=== PATIENT | male | born 1940 | race Caucasian/White ===

== ENCOUNTER → 2017-04-27 | Outpatient (CLI) | payer OTHER | END | disposition home or self-care (01) | LOC: KCIC US 11:58 | DX: I73.9 Peripheral vascular disease, unspecified (principal); I10 Essential (primary) hypertension; E11.51 Type 2 diabetes mellitus with diabetic peripheral angiopathy without gangrene; F17.200 Nicotine dependence, unspecified, uncomplicated | CPT/HCPCS: 93925 ==

== ENCOUNTER 2017-05-15 08:49 | Outpatient (CLI) | payer OTHER ==
[2017-05-19] MEDS: REGADENOSON 0.4 MG/5 ML DISP.SYRIN. IV (09:02)
== END 2017-05-19 | disposition home or self-care (01) ==
LOC: NM 08:49
DX: I25.10 Atherosclerotic heart disease of native coronary artery without angina pectoris (principal); I35.0 Nonrheumatic aortic (valve) stenosis
CPT/HCPCS: 78452; 93017; 93306; 96374; 96375; 96376; A9500; J2785

== ENCOUNTER → 2017-05-15 | Outpatient (CLI) | payer OTHER ==
[~2017-05-15] MED LIST: 0.9 % SODIUM CHLORIDE 10 ML DISP.SYRIN. IV; CONTRAST GIVEN MC; HEPARIN for IV BOLUS 10,000 UNIT/10 ML VIAL.; MIDAZOLAM HCL/PF 2 MG/2 ML VIAL.; NITROGLYCERIN SUBLINGUAL 0.4 MG BOTTLE OF 25. SL; fentaNYL PF VIAL 100 MCG/2 ML VIAL
[2017-05-15 10:10] LABS: HEMOGLOBIN 13.5 g/dL (13.0-17.5); MEAN CORPUSCULAR HEMOGLOBIN 29 pg (25-35); MEAN CORPUSCULAR HGB CONC 33 g/dL (31-37); MEAN CORPUSCULAR VOLUME 89 fL (79-100); PLATELET COUNT 174 x10^3/uL (140-400); RED BLOOD COUNT 4.64 x10^6/uL (4.30-5.70); RED CELL DISTRIBUTION WIDTH 13.7 % (11.5-14.5); WHITE BLOOD COUNT 9.3 x10^3/uL (4.0-11.0)
[2017-05-15 10:20] LABS: ANION GAP 11 (6-14); BLOOD UREA NITROGEN 19 mg/dL (8-26); CALCIUM 8.8 mg/dL (8.5-10.1); CARBON DIOXIDE 28 mmol/L (21-32); CHLORIDE 103 mmol/L (98-107); CREATININE 1.1 mg/dL (0.7-1.3); GFR 65.3; GLUCOSE 150 mg/dL (70-99); POTASSIUM 4.3 mmol/L (3.5-5.1); SODIUM 142 mmol/L (136-145)
[2017-05-15 10:23] LABS: INR 1.1 (0.8-1.1); PROTHROMBIN TIME PATIENT 13.5 SEC (11.7-14.0)
[2017-05-15] MEDS: LIDOCAINE 2% 20 ML VIAL. IJ (11:32)
[2017-05-15] MEDS: fentaNYL PF VIAL 100 MCG/2 ML VIAL IV (11:34)
[2017-05-15] MEDS: MIDAZOLAM HCL/PF 2 MG/2 ML VIAL. IV (11:35)
[2017-05-15] MEDS: IODIXANOL 320 MG/ML 100 ML VIAL. IART (11:35)
[2017-05-15] MEDS: HEPARIN for IV BOLUS 10,000 UNIT/10 ML VIAL. IART (11:36)
== END | disposition home or self-care (01) ==
LOC: CCL 09:12
DX: I70.203 Unspecified atherosclerosis of native arteries of extremities, bilateral legs (principal); I10 Essential (primary) hypertension; E78.5 Hyperlipidemia, unspecified; Z95.820 Peripheral vascular angioplasty status with implants and grafts
CPT/HCPCS: 36246; 36415; 75630; 75716; 80048; 85027; 85610; 99152; 99153; C1769; C1892; J1644; J2250; J3010

== ENCOUNTER → 2017-05-26 | Outpatient (CLI) | payer OTHER ==
[~2017-05-26] MED LIST changes: -0.9 % SODIUM CHLORIDE 10 ML DISP.SYRIN. IV; +ACETAMINOPHEN 325 MG TABLET. PO; +ADENOSINE 90 MG/30 ML VIAL. IV; +ASPIRIN 325 MG TABLET; +ASPIRIN ENTERIC COATED 81 MG TABLET.DR. PO; +ATROPINE 0.5 MG/5 ML DISP.SYRIN.; +BIVALIRUDIN 250 MG VIAL. IV; +CLOPIDOGREL BISULFATE 75 MG TABLET PO; +IODIXANOL 320 MG/ML 100 ML VIAL.; +IV 1/2 NORMAL SALINE 1,000 ML IV; +LIDOCAINE 2% 20 ML VIAL.; +NITROGLYCERIN 200 MCG/2 ML SYRINGE FOR CATH/VASC LAB.; +VERAPAMIL 5 MG/2 ML VIAL.
[2017-05-26 07:11] LABS: HEMATOCRIT 45.2 % (39.0-53.0); HEMOGLOBIN 15.2 g/dL (13.0-17.5); MEAN CORPUSCULAR HEMOGLOBIN 30 pg (25-35); MEAN CORPUSCULAR HGB CONC 34 g/dL (31-37); MEAN CORPUSCULAR VOLUME 89 fL (79-100); PLATELET COUNT 202 x10^3/uL (140-400); RED BLOOD COUNT 5.11 x10^6/uL (4.30-5.70); RED CELL DISTRIBUTION WIDTH 14.5 % (11.5-14.5); WHITE BLOOD COUNT 10.1 x10^3/uL (4.0-11.0)
[2017-05-26 07:14] LABS: INR 1.1 (0.8-1.1); PROTHROMBIN TIME PATIENT 13.8 SEC (11.7-14.0)
[2017-05-26 07:16] LABS: ANION GAP 8 (6-14); BLOOD UREA NITROGEN 22 mg/dL (8-26); CARBON DIOXIDE 28 mmol/L (21-32); CHLORIDE 101 mmol/L (98-107); CREATININE 1.2 mg/dL (0.7-1.3); GLUCOSE 205 mg/dL (70-99); POTASSIUM 4.3 mmol/L (3.5-5.1); SODIUM 137 mmol/L (136-145)
[2017-05-26] MEDS: ASPIRIN 325 MG TABLET PO ×2 (09:15)
[2017-05-26] MEDS: ADENOSINE 90 MG in IV NORMAL SALINE 50ML 90 ML IV (09:15)
[2017-05-26] MEDS: BIVALIRUDIN 250 MG VIAL. IV ×2 (09:15)
[2017-05-26] MEDS: NITROGLYCERIN 200 MCG/2 ML SYRINGE FOR CATH/VASC LAB. IART ×2 (09:26)
[2017-05-26] MEDS: VERAPAMIL 5 MG/2 ML VIAL. IART ×2 (09:26)
[2017-05-26] MEDS: HEPARIN for IV BOLUS 10,000 UNIT/10 ML VIAL. IART ×2 (09:26)
[2017-05-26] MEDS: fentaNYL PF VIAL 100 MCG/2 ML VIAL IV ×2 (09:27)
[2017-05-26] MEDS: LIDOCAINE 2% 20 ML VIAL. IJ ×2 (09:27)
[2017-05-26] MEDS: IODIXANOL 320 MG/ML 100 ML VIAL. IART ×2 (09:27)
[2017-05-26] MEDS: MIDAZOLAM HCL/PF 2 MG/2 ML VIAL. IV ×2 (09:28)
== END | disposition home or self-care (01) ==
LOC: CCL 06:16
DX: I25.10 Atherosclerotic heart disease of native coronary artery without angina pectoris (principal); J43.9 Emphysema, unspecified; M19.90 Unspecified osteoarthritis, unspecified site; I11.0 Hypertensive heart disease with heart failure; I50.9 Heart failure, unspecified; Z72.89 Other problems related to lifestyle; Z90.49 Acquired absence of other specified parts of digestive tract
CPT/HCPCS: 36415; 80048; 85027; 85610; 92928; 93458; 93571; 99152; 99153; C1769; C1874; C1887; C1892; J0153; J0583; J1644; J2250; J3010; J3490

== ENCOUNTER 2017-06-06 06:31 | Observation (INO) | payer OTHER ==
[2017-06-06 07:05] LABS: HEMOGLOBIN 14.8 g/dL (13.0-17.5); MEAN CORPUSCULAR HEMOGLOBIN 30 pg (25-35); MEAN CORPUSCULAR HGB CONC 34 g/dL (31-37); MEAN CORPUSCULAR VOLUME 89 fL (79-100); PLATELET COUNT 207 x10^3/uL (140-400); RED BLOOD COUNT 4.96 x10^6/uL (4.30-5.70); RED CELL DISTRIBUTION WIDTH 14.1 % (11.5-14.5)
[2017-06-06] MEDS ORDERED: LIDOCAINE 2% 20 ML VIAL. ×3 (07:17)
[2017-06-06] MEDS ORDERED: IODIXANOL 320 MG/ML 100 ML VIAL. ×3 (07:17)
[2017-06-06 07:20] LABS: ANION GAP 7 (6-14); BLOOD UREA NITROGEN 22 mg/dL (8-26); CALCIUM 8.9 mg/dL (8.5-10.1); CARBON DIOXIDE 32 mmol/L (21-32); CHLORIDE 98 mmol/L (98-107); CREATININE 1.1 mg/dL (0.7-1.3); GFR 65.3; GLUCOSE 190 mg/dL (70-99); SODIUM 137 mmol/L (136-145)
[2017-06-06 07:21] LABS: INR 1.1 (0.8-1.1); PROTHROMBIN TIME PATIENT 13.1 SEC (11.7-14.0)
[2017-06-06] MEDS ORDERED: MIDAZOLAM HCL/PF 2 MG/2 ML VIAL. ×3 (07:58)
[2017-06-06] MEDS ORDERED: fentaNYL PF VIAL 100 MCG/2 ML VIAL ×9 (07:58→11:46)
[2017-06-06] MEDS ORDERED: HEPARIN for IV BOLUS 10,000 UNIT/10 ML VIAL. ×6 (08:08→08:24)
[2017-06-06] MEDS: IODIXANOL 320 MG/ML 100 ML VIAL. IART ×3 (08:15)
[2017-06-06] MEDS: HEPARIN for IV BOLUS 10,000 UNIT/10 ML VIAL. IV ×3 (08:15)
[2017-06-06] MEDS ORDERED: VERAPAMIL 5 MG/2 ML VIAL. ×3 (08:24)
[2017-06-06] MEDS ORDERED: NITROGLYCERIN 200 MCG/2 ML SYRINGE FOR CATH/VASC LAB. ×9 (08:24→12:38)
[2017-06-06] MEDS: NITROGLYCERIN 200 MCG/2 ML SYRINGE FOR CATH/VASC LAB. IART ×6 (09:06→12:56)
[2017-06-06] MEDS: HEPARIN for IV BOLUS 10,000 UNIT/10 ML VIAL. IART ×3 (09:08)
[2017-06-06] MEDS: VERAPAMIL 5 MG/2 ML VIAL. IART ×3 (09:08)
[2017-06-06] MEDS: LIDOCAINE 2% 20 ML VIAL. IJ ×3 (12:50)
[2017-06-06] MEDS: fentaNYL PF VIAL 100 MCG/2 ML VIAL IV ×3 (12:53)
[2017-06-06] MEDS: MIDAZOLAM HCL/PF 2 MG/2 ML VIAL. IV ×3 (12:57)
[2017-06-06] MEDS: IV 1/2 NORMAL SALINE 1,000 ML IV ×6 (13:31→16:06)
[2017-06-06] MEDS: ACETAMINOPHEN 325 MG TABLET. PO ×3 (16:05)
[2017-06-06] MEDS: MORPHINE SULFATE 2 MG/ML DISP.SYRIN. IV ×15 (16:30→23:36)
[2017-06-06] MEDS: oxyCODONE/APAP 5/325 1 TAB TABLET PO ×6 (16:34→21:27)
[2017-06-06 17:25] LABS: POC GLUCOSE 265 mg/dL (70-99)
[2017-06-06] MEDS: INSULIN ASPART 300 UNITS/3 ML INSULN.PEN SQ ×3 (17:27)
[2017-06-06 20:59] LABS: POC GLUCOSE 175 mg/dL (70-99)
[2017-06-06] MEDS: SIMVASTATIN 20 MG TABLET PO ×3 (21:27)
[2017-06-06] MEDS: INSULIN DETEMIR 300 UNITS/3 ML INSULN.PEN. SQ ×3 (22:56)
[2017-06-07] MEDS: MORPHINE SULFATE 2 MG/ML DISP.SYRIN. IV ×9 (01:29→08:08)
[2017-06-07] MEDS: oxyCODONE/APAP 5/325 1 TAB TABLET PO ×9 (01:33→21:24)
[2017-06-07] MEDS: IV 1/2 NORMAL SALINE 1,000 ML IV ×3 (01:34)
[2017-06-07 07:46] LABS: POC GLUCOSE 154 mg/dL (70-99)
[2017-06-07] MEDS: CLOPIDOGREL BISULFATE 75 MG TABLET PO ×3 (08:07)
[2017-06-07] MEDS: LISINOPRIL 20 MG TABLET PO ×3 (08:07)
[2017-06-07] MEDS: ASPIRIN CHEWABLE 81 MG TABLET. PO ×3 (08:07)
[2017-06-07] MEDS: INSULIN ASPART 300 UNITS/3 ML INSULN.PEN SQ ×12 (09:25→17:49)
[2017-06-07] MEDS: FUROSEMIDE 20 MG TABLET PO ×3 (11:49)
[2017-06-07 11:57] LABS: POC GLUCOSE 228 mg/dL (70-99)
[2017-06-07] MEDS ORDERED: DEXTROSE 50% 25 GM / 50ML DISP.SYRIN. IV ×3 (13:30)
[2017-06-07 17:01] LABS: POC GLUCOSE 216 mg/dL (70-99)
[2017-06-07 20:59] LABS: POC GLUCOSE 236 mg/dL (70-99)
[2017-06-07] MEDS: SIMVASTATIN 20 MG TABLET PO ×3 (21:23)
[2017-06-07] MEDS: INSULIN DETEMIR 300 UNITS/3 ML INSULN.PEN. SQ ×3 (21:29)
[2017-06-08] MEDS: oxyCODONE/APAP 5/325 1 TAB TABLET PO ×9 (02:57→13:14)
[2017-06-08 07:51] LABS: POC GLUCOSE 178 mg/dL (70-99)
[2017-06-08] MEDS: FUROSEMIDE 20 MG TABLET PO ×3 (08:23)
[2017-06-08] MEDS: CLOPIDOGREL BISULFATE 75 MG TABLET PO ×3 (08:24)
[2017-06-08] MEDS: ASPIRIN CHEWABLE 81 MG TABLET. PO ×3 (08:24)
[2017-06-08] MEDS: LISINOPRIL 20 MG TABLET PO ×3 (08:28)
[2017-06-08] MEDS: INSULIN ASPART 300 UNITS/3 ML INSULN.PEN SQ ×12 (08:31→13:18)
[2017-06-08 12:19] LABS: POC GLUCOSE 176 mg/dL (70-99)
== END 2017-06-08 15:07 | disposition home or self-care (01) ==
LOC: CCL 06:31 → 2 NORTH 11:17
DX: I70.202 Unspecified atherosclerosis of native arteries of extremities, left leg (principal); I70.213 Atherosclerosis of native arteries of extremities with intermittent claudication, bilateral legs (principal); I10 Essential (primary) hypertension; E78.5 Hyperlipidemia, unspecified; E11.9 Type 2 diabetes mellitus without complications; I73.9 Peripheral vascular disease, unspecified; I49.3 Ventricular premature depolarization; Z95.820 Peripheral vascular angioplasty status with implants and grafts
CPT/HCPCS: 36415; 37226; 37228; 80048; 82962; 85027; 85610; 93923; 96372; 96374; 96375; 96376; 97116-GP; 97161-GP; 99152; 99153; C1725; C1769; C1877; C1892; G0378; G0379; G8978-CI-GP; G8979-CI-GP; G8980-CI-GP; J1644; J1815; J2250; J2270; J3010; J3490

== ENCOUNTER → 2018-01-11 | Outpatient (CLI) | payer OTHER ==
[2017-06-08 11:49] VITALS: BP 117/75
[~2018-01-11] MED LIST changes: -ACETAMINOPHEN 325 MG TABLET. PO; -ADENOSINE 90 MG/30 ML VIAL. IV; +AMLO5TAB7 PO; +AMOX1TAB61 PO; +ASPI-630 PO; -ASPIRIN 325 MG TABLET; -ASPIRIN ENTERIC COATED 81 MG TABLET.DR. PO; -ATROPINE 0.5 MG/5 ML DISP.SYRIN.; -BIVALIRUDIN 250 MG VIAL. IV; +CLOP75TA57 PO; -CLOPIDOGREL BISULFATE 75 MG TABLET PO; -CONTRAST GIVEN MC; +Diltiazem Hcl PO; +FURO-69 PO; +FURO20TA3 PO; +FURO40TA4 PO; -HEPARIN for IV BOLUS 10,000 UNIT/10 ML VIAL.; +INSU100C4 SQ; +INSU100I13 SQ; +INSU100V13 SQ; +INSU100V8 SQ; -IODIXANOL 320 MG/ML 100 ML VIAL.; -IV 1/2 NORMAL SALINE 1,000 ML IV; -LIDOCAINE 2% 20 ML VIAL.; +LISI-130 PO; +METF500T16 PO; -MIDAZOLAM HCL/PF 2 MG/2 ML VIAL.; -NITROGLYCERIN 200 MCG/2 ML SYRINGE FOR CATH/VASC LAB.; -NITROGLYCERIN SUBLINGUAL 0.4 MG BOTTLE OF 25. SL; +OXYC5TAB88 PO; +SIMV20TA3 PO; -VERAPAMIL 5 MG/2 ML VIAL.; -fentaNYL PF VIAL 100 MCG/2 ML VIAL
--- NOTE | 2018-01-11 11:53 | CARD ---
MR#: [id number] Date of Study: 01/11/2018 Ordering Physician: WARNER MAHARAJ, Referring Physician: WARNER MAHARAJ Tech: Jeannette Duran RDCS APPROVED REPORT EXAM: Two-dimensional and M-mode echocardiogram with Doppler and color Doppler. Other Information Quality : GoodHR: 85bpm Rhythm : PVC's INDICATION Cardiomyopathy RISK FACTORS Hypertension Obesity Diabetes 2D DIMENSIONS RVDd3.4 (2.9-3.5cm)Left Atrium(2D)4.0 (1.6-4.0cm) IVSd1.1 (0.7-1.1cm)Aortic Root(2D)3.5 (2.0-3.7cm) LVDd6.1 (3.9-5.9cm)LVOT Diameter2.4 (1.8-2.4cm) PWd1.1 (0.7-1.1cm)LVDs4.7 (2.5-4.0cm) FS (%) 22.4 %SV81.9 ml M-Mode DIMENSIONS Left Atrium(MM)4.12 (2.5-4.0cm)Aortic Root3.75 (2.2-3.7cm) Aortic Valve AoV Peak Jamal.212.3cm/sAoV VTI36.6cm AO Peak GR.18.0mmHgLVOT Peak Jamal.89.9cm/s AO Mean GR.10mmHgAVA (VMAX)1.92cm2 PRABHAKAR (VTI)1.92cm2 Mitral Valve MV E Ymeluoie37.9cm/sMV E Peak Gr.5mmHg MV DECEL [id number] A Xnglrued977.1cm/s MV E Mean Gr.2mmHgE/A Ratio0.7 MV A [id number] Pulmonary Valve PV Peak Zgqjdnsx679.2cm/s LEFT VENTRICLE The Left Ventricle is mildly dilated. There is borderline to mild concentric left ventricular hypertr ophy. The systolic function is mildly impaired. The Ejection Fraction is 40-45%. There is mild global hypokinesis of the left ventricle. Transmitral Doppler flow pattern is normal for age. RIGHT VENTRICLE The right ventricle is normal size. There is normal right ventricular wall thickness. The right ventr icular systolic function is normal. ATRIA The left atrium is mildly dilated. The right atrium size is normal. The interatrial septum is intact with no evidence for an atrial septal defect or patent foramen ovale as noted on 2-D or Doppler imagi ng. AORTIC VALVE The aortic valve is calcified. Doppler and Color Flow revealed trace aortic regurgitation. There is m ild valvular aortic stenosis. MITRAL VALVE The mitral valve is thickened but opens well. There is no evidence of mitral valve prolapse. There is no mitral valve stenosis. Doppler and Color-flow revealed mild to moderate mitral regurgitation. TRICUSPID VALVE The tricuspid valve is normal in structure and function. Doppler and Color Flow revealed trace tricus pid valve regurgitation. There is no tricuspid valve prolapse or vegetation. There is no tricuspid va lve stenosis. PULMONIC VALVE The pulmonary valve is normal in structure and function. Doppler and Color Flow revealed no pulmonic valvular regurgitation. There is no pulmonic valvular stenosis. GREAT VESSELS The aortic root is normal in size. The ascending aorta is normal in size. PERICARDIAL EFFUSION There is no evidence of significant pericardial effusion. Critical Notification Critical Value: No <Conclusion> The Left Ventricle is mildly dilated. The systolic function is mildly impaired. The Ejection Fraction is 40-45%. There is mild global hypokinesis of the left ventricle. There is borderline to mild concentric left ventricular hypertrophy. The aortic valve is calcified. There is mild valvular aortic stenosis. Doppler and Color Flow revealed trace aortic regurgitation. Doppler and Color-flow revealed mild to moderate mitral regurgitation. Doppler and Color Flow revealed trace tricuspid valve regurgitation. Signed by : Destin Bueno MD Electronically Approved : 01/11/2018 11:52:45
== END | disposition home or self-care (01) ==
LOC: ECHO 10:48
PROVIDERS: ATTEND Internal Medicine Cardiovascular Disease
DX: I08.1 Rheumatic disorders of both mitral and tricuspid valves (principal); I25.5 Ischemic cardiomyopathy
CPT/HCPCS: 93306

== ENCOUNTER 2018-02-12 14:33 | Inpatient (IN) | payer OTHER ==
[~2018-02-12] VITALS: Ht 175.3 cm; Wt 104.4 kg
[2018-02-12 15:48] LABS: BASO % 0 % (0-3); EOS # 0.3 x10^3/uL (0.0-0.7); EOS % 3 % (0-3); HEMOGLOBIN 14.3 g/dL (13.0-17.5); LYMPH # 1.6 x10^3/uL (1.0-4.8); LYMPH % 17 % (24-48); MEAN CORPUSCULAR HEMOGLOBIN 30 pg (25-35); MEAN CORPUSCULAR HGB CONC 34 g/dL (31-37); MEAN CORPUSCULAR VOLUME 88 fL (79-100); MONO # 0.8 x10^3/uL (0.0-1.1); MONO % 9 % (0-9); NEUT # 6.7 x10^3uL (1.8-7.7); NEUT % 71 % (31-73); PLATELET COUNT 240 x10^3/uL (140-400); RED BLOOD COUNT 4.75 x10^6/uL (4.30-5.70); RED CELL DISTRIBUTION WIDTH 14.1 % (11.5-14.5); WHITE BLOOD COUNT 9.4 x10^3/uL (4.0-11.0)
--- NOTE | 2018-02-12 15:56 | PHYS DOC ---
Past Medical History Past Medical History: CAD, Diabetes-Type II, High Cholesterol, Hypertension, [place] Past Surgical History: Cholecystectomy Additional Past Surgical Histo: LEFT LEG VEIN SX, 5TH LEFT TOE AMPUTATED Alcohol Use: None Drug Use: None Adult General Chief Complaint Chief Complaint: FOOT INJURY PAIN [facility] HPI Patient is a 77 year old male who presents with 2 weeks he had a pipe back up and he was standing in about 2 inches of water and then realized that he had a diabetic ulcer on his second great toe and states that he just noticed it 2 days ago. Patient states that he is not been draining and that there was a piece of skin over that he cut off. There is no edema in the affected foot. He states that the second great toe that has a sore on the very tip of the toe was purple but today it looks a lot better. Patient states that he's had one stent placed in the left leg and that he has had one stent placed in his heart back in May. Patient is diabetic and his glucose in the ED is 213. Review of Systems Review of Systems Constitutional: Denies fever or chills [] Eyes: Denies change in visual acuity, redness, or eye pain [] HENT: Denies nasal congestion or sore throat [] Respiratory: Denies cough or shortness of breath [] Cardiovascular: No additional information not addressed in HPI [] GI: Denies abdominal pain, nausea, vomiting, bloody stools or diarrhea [] : Denies dysuria or hematuria [] Musculoskeletal: Left foot wound on tip of second left toe. Denies back pain or joint pain [] Integument: Denies rash or skin lesions [] Neurologic: Denies headache, focal weakness or sensory changes [] Endocrine: Denies polyuria or polydipsia [] All other systems were reviewed and found to be within normal limits, except as documented in this note. Allergies Allergies Allergies Coded Allergies Type Severity Reaction Last Updated Verified No Known Drug Allergies 10/30/15 No Physical Exam Physical Exam Constitutional: Well developed, well nourished, no acute distress, non-toxic appearance. [] HENT: Normocephalic, atraumatic, bilateral external ears normal, oropharynx moist, no oral exudates, nose normal. [] Eyes: PERRLA, EOMI, conjunctiva normal, no discharge. [] Neck: Normal range of motion, no tenderness, supple, no stridor. [] Cardiovascular:Heart rate regular rhythm, no murmur [] Lungs & Thorax: Bilateral breath sounds clear to auscultation [] Abdomen: Bowel sounds normal, soft, no tenderness, no masses, no pulsatile masses. [] Skin: Warm, dry, no erythema, no rash. [] Back: No tenderness, no CVA tenderness. [] Extremities: No tenderness, no cyanosis, no clubbing, ROM intact, Left second toe 1-2+ edema. Left toes red in color compared to the rest of his foot. Left tip of 2nd toes ulcer that is non draining.[] Neurologic: Alert and oriented X 3, normal motor function, normal sensory function, no focal deficits noted. [] Psychologic: Affect normal, judgement normal, mood normal. [] Current Patient Data Vital Signs Vital Signs Date Time Temp Pulse Resp B/P (MAP) Pulse Ox O2 Delivery O2 Flow Rate FiO2 02/12/18 17:30 92 16 135/66 (89) 95 Room Air 02/12/18 15:29 98.3 98.3 Lab Values Laboratory Tests Test 02/12/18 15:27 02/12/18 15:40 Glucose (Fingerstick) 213 mg/dL (70-99) H White Blood Count 9.4 x10^3/uL (4.0-11.0) Red Blood Count 4.75 x10^6/uL (4.30-5.70) Hemoglobin 14.3 g/dL (13.0-17.5) Hematocrit 42.0 % (39.0-53.0) Mean Corpuscular Volume 88 fL (79-100) Mean Corpuscular Hemoglobin 30 pg (25-35) Mean Corpuscular Hemoglobin Concent 34 g/dL (31-37) Red Cell Distribution Width 14.1 % (11.5-14.5) Platelet Count 240 x10^3/uL (140-400) Neutrophils (%) (Auto) 71 % (31-73) Lymphocytes (%) (Auto) 17 % (24-48) L Monocytes (%) (Auto) 9 % (0-9) Eosinophils (%) (Auto) 3 % (0-3) Basophils (%) (Auto) 0 % (0-3) Neutrophils # (Auto) 6.7 x10^3uL (1.8-7.7) Lymphocytes # (Auto) 1.6 x10^3/uL (1.0-4.8) Monocytes # (Auto) 0.8 x10^3/uL (0.0-1.1) Eosinophils # (Auto) 0.3 x10^3/uL (0.0-0.7) Basophils # (Auto) 0.0 x10^3/uL (0.0-0.2) Sodium Level 140 mmol/L (136-145) Potassium Level 4.8 mmol/L (3.5-5.1) Chloride Level 103 mmol/L (98-107) Carbon Dioxide Level 27 mmol/L (21-32) Anion Gap 10 (6-14) Blood Urea Nitrogen 22 mg/dL (8-26) Creatinine 1.5 mg/dL (0.7-1.3) H Estimated GFR (Cockcroft-Gault) 45.5 Glucose Level 198 mg/dL (70-99) H Calcium Level 9.2 mg/dL (8.5-10.1) Laboratory Tests 02/12/18 15:40 Laboratory Tests 02/12/18 15:40 EKG EKG [] Radiology/Procedures Radiology/Procedures US venous and Arterial in Left lower extremity Impressions: [facility] [address] [place] [address] IMAGING REPORT Signed PATIENT: JIMBO PAZ ACCOUNT: [id number] : 1940 LOCATION: ER AGE: 77 SEX: M EXAM STATUS: REG ER ORD. PHYSICIAN: CELIA JEAN APRN REASON: Hx stent, faint pulse, color change to toes PROCEDURE: VENOUS LOWER EXTREMITY LEFT Left lower extremity venous Doppler ultrasound History: Leg pain; Left color changes to toes Comparison: None. Procedure: Color flow Doppler, Doppler spectral analysis, and 2D images are obtained with and without compression in the area of the common femoral vein, superficial femoral vein - femoral vein junction, main femoral vein (superficial femoral vein) and popliteal vein. Veins of the proximal calf are also imaged. Findings: There is normal color flow, augmentation, and compressibility of all visualized vein segments. No evidence of deep venous thrombus is present. IMPRESSION: No evidence of left lower extremity deep venous thrombosis. Electronically signed by: Antonio Denney MD (02/12/2018 4:52 PM) [id number] DICTATED and SIGNED BY: ANTONIO DENNEY MD DATE: 02/12/18 1650 [facility] [address] [place] [address] IMAGING REPORT Signed PATIENT: JIMBO PAZ ACCOUNT: [id number] : 1940 LOCATION: ER AGE: 77 SEX: M EXAM STATUS: REG ER ORD. PHYSICIAN: CELIA JEAN APRN REASON: Hx stent, faint pulse, color change to toes PROCEDURE: DUPLEX LOWER EXT ARTERIAL LEFT Indication: Faint pulse. Left leg pain. TECHNIQUE: Grayscale, color Doppler and spectral waveform images of the left lower extremity arteries COMPARISON: Previous exam from 06/07/2017. FINDINGS: Monophasic waveforms are seen in the LONG LINES OPERATOR with velocity of 25 cm/s. Monophasic waveforms are seen in the profunda femoris artery with velocity of 73 cm/s. Metallic stent is seen from the SFA to the peroneal artery which demonstrates no blood flow. Monophasic waveform is seen in the peroneal artery distally demonstrating velocity of 21 cm/s. Monophasic waveform is seen in the anterior tibial artery with velocity of 75 cm/s. Monophasic and dampened waveforms are seen in the posterior tibial artery distally with velocity of 17 cm/s. Monophasic and dampened waveforms are seen in the dorsalis pedis artery with velocity of 17 cm/s. IMPRESSION: 1. Stent from SFA to peroneal artery which appears occluded. 2. Advanced atherosclerotic disease in the anterior tibial, posterior tibial and dorsalis pedis arteries although some patency appears preserved. Critical findings were identified on 02/12/2018 5:07 PM, read back and verified with Celia Brooks on 02/12/2018 5:[address] Topher Whitehead DO. Electronically signed by: Topher Whitehead DO (02/12/2018 5:17 PM) [facility] DICTATED and SIGNED BY: TOPHER WHITEHEAD DO DATE: 02/12/18 1707 [facility] [address] [place] [address] IMAGING REPORT Signed PATIENT: JIMBO PAZ ACCOUNT: [id number] : 1940 LOCATION: ER AGE: 77 SEX: M EXAM STATUS: REG ER ORD. PHYSICIAN: CELIA JEAN APRN REASON: Diabetic ulcer on Left 2nd toe PROCEDURE: FOOT LEFT 3V Indication:Diabetic ulcer on the left second toe TECHNIQUE: 3 views of the left foot COMPARISON:None FINDINGS: There is erosion of the tuft of the second toe. No acute fractures or dislocation. Status post amputation of the fifth toe. No soft tissue gas. Mild midfoot and ankle joint arthritis. IMPRESSION: Findings are highly concerning for second toe tuft osteomyelitis. Electronically signed by: Topher Whitehead DO (02/12/2018 5:38 PM) [facility] DICTATED and SIGNED BY: TOPHER WHITEHEAD DO DATE: 02/12/181736 Course & Med Decision Making Course & Med Decision Making Patient is a 77 year old male who presents with 2 weeks he had a pipe back up and he was standing in about 2 inches of water and then realized that he had a diabetic ulcer on his second great toe and states that he just noticed it 2 days ago. Patient states that he is not been draining and that there was a piece of skin over that he cut off. There is no edema in the affected foot. He states that the second great toe that has a sore on the very tip of the toe was purple but today it looks a lot better. Patient states that he's had one stent placed in the left leg and that he has had one stent placed in his heart back in May. Patient is diabetic and his glucose in the ED is 213. Patient states that he does not check his glucose at home. Patient states he also does not check his feet regularly. Patient states that he has had that sore on that toe for 2 days but it has been hurting for several weeks. There is a faint pedal pulse present in bilateral feet. There is no pallor to the affected foot but his toes seemed to be 1-2+ swollen and red in color. Skin is warm to touch on bilateral lower extremities. Afebrile. Heart rate 86, blood pressures 156/65, 20 respirations, 98.3. Patient states that the foot actually looks better today than it has been vomiting. He has no known drug allergies. He takes NovoLog, Levemir, metformin, lisinopril, Lasix, Zocor, Plavix. He denies any allergies to any medications. Alert and oriented. Ambulatory. Patient denies any numbness or tingling. The skin on the rest of the foot does look within normal limits and is pink. No other sores on the affected foot or the right foot. Lab work is unremarkable. Venous ultrasound of the affected leg shows No evidence of left lower extremity deep venous thrombosis. Arterial ultrasound shows 1. Stent from SFA to peroneal artery which appears occluded. 2. Advanced atherosclerotic disease in the anterior tibial, posterior tibial and dorsalis pedis arteries although some patency appears preserved. Foot second toe xray shows Findings are highly concerning for second toe tuft osteomyelitis. I have consulted with Dr Smith and he states to bring him in the hospital and consult vascular surgery. I will also consult Infectious Disease. Patient is started on antibiotics for osteomyelitis. 5:40 PM: ER PHYSICIAN ATTENDING NOTE: The patient presented with what appears to be a chronic ulcer on the tip of his left second toe. He has not had any fevers or chills. There is mildly delayed capillary refill to the skin of the foot. There is a very weakly palpable dorsalis pedis and posterior tibial pulse, with diminished but steady biphasic Doppler signals on my assessment of the patient. He has a history of vascular stent, ultrasound result has been reviewed. I have personally seen and examined the patient, and agree with the history, physical exam, and plan, as documented by mid-level provider. Dragon Disclaimer Dragon Disclaimer This electronic medical record was generated, in whole or in part, using a voice recognition dictation system. Departure Departure Impression: Primary Impression: Osteomyelitis Additional Impression: PAD (peripheral artery disease) Disposition: 09 ADMITTED INPATIENT Admitting Physician: Patrick Smith Referrals: PATRICK SMITH MD (PCP) Problem Qualifiers Primary Impression: Osteomyelitis Osteomyelitis type: unspecified type Osteomyelitis location: other site Qualified Codes: M86.9 - Osteomyelitis, unspecified CELIA JEAN APRN Feb 12, 2018 15:56 VIKY OROPEZA MD Feb 12, 2018 17:44
[2018-02-12 16:11] LABS: CALCIUM 9.2 mg/dL (8.5-10.1); CREATININE 1.5 mg/dL (0.7-1.3); GFR 45.5; POTASSIUM 4.8 mmol/L (3.5-5.1)
--- NOTE | 2018-02-12 16:56 | RAD ---
Left lower extremity venous Doppler ultrasound History: Leg pain; Left color changes to toes Comparison: None. Procedure: Color flow Doppler, Doppler spectral analysis, and 2D images are obtained with and without compression in the area of the common femoral vein, superficial femoral vein - femoral vein junction, main femoral vein (superficial femoral vein) and popliteal vein. Veins of the proximal calf are also imaged. Findings: There is normal color flow, augmentation, and compressibility of all visualized vein segments. No evidence of deep venous thrombus is present. IMPRESSION: No evidence of left lower extremity deep venous thrombosis. Electronically signed by: Antonio Denney MD (02/12/2018 4:52 PM) [id number]
--- NOTE | 2018-02-12 17:20 | RAD ---
Indication: Faint pulse. Left leg pain. TECHNIQUE: Grayscale, color Doppler and spectral waveform images of the left lower extremity arteries COMPARISON: Previous exam from 06/07/2017. FINDINGS: Monophasic waveforms are seen in the RECEIVING CHECKER with velocity of 25 cm/s. Monophasic waveforms are seen in the profunda femoris artery with velocity of 73 cm/s. Metallic stent is seen from the SFA to the peroneal artery which demonstrates no blood flow. Monophasic waveform is seen in the peroneal artery distally demonstrating velocity of 21 cm/s. Monophasic waveform is seen in the anterior tibial artery with velocity of 75 cm/s. Monophasic and dampened waveforms are seen in the posterior tibial artery distally with velocity of 17 cm/s. Monophasic and dampened waveforms are seen in the dorsalis pedis artery with velocity of 17 cm/s. IMPRESSION: 1. Stent from SFA to peroneal artery which appears occluded. 2. Advanced atherosclerotic disease in the anterior tibial, posterior tibial and dorsalis pedis arteries although some patency appears preserved. Critical findings were identified on 02/12/2018 5:07 PM, read back and verified with Celia Brooks on 02/12/2018 5:[address] Topher Whitehead DO. Electronically signed by: Topher Whitehead DO (02/12/2018 5:17 PM) [facility]
--- NOTE | 2018-02-12 17:42 | RAD ---
Indication:Diabetic ulcer on the left second toe TECHNIQUE: 3 views of the left foot COMPARISON:None FINDINGS: There is erosion of the tuft of the second toe. No acute fractures or dislocation. Status post amputation of the fifth toe. No soft tissue gas. Mild midfoot and ankle joint arthritis. IMPRESSION: Findings are highly concerning for second toe tuft osteomyelitis. Electronically signed by: Topher Whitehead DO (02/12/2018 5:38 PM) [facility]
[2018-02-12] MEDS ORDERED: PIP/TAZO PER PHARMACY MC PRN (18:30)
[2018-02-12] MEDS ORDERED: ONDANSETRON PF 4 MG/2 ML VIAL. IV PRN (18:30)
[2018-02-12] MEDS ORDERED: ACETAMINOPHEN 325 MG TABLET. PO PRN (18:30)
[2018-02-12] MEDS: PIPERACILLIN/TAZOBACTAM 4.5 GM in IV NORMAL SALINE 100ML 100 ML IV SCH (18:48)
[2018-02-12] MEDS: SIMVASTATIN 20 MG TABLET PO SCH (21:30)
[2018-02-12] MEDS ORDERED: DEXTROSE 50% 25 GM / 50ML DISP.SYRIN. IV PRN (21:30)
[2018-02-12] MEDS: INSULIN GLARGINE 300 UNITS/3 ML INSULN.PEN. SQ SCH (21:33)
[2018-02-12 23:00] VITALS: BP 123/74
--- NOTE | 2018-02-12 23:07 | EKG ---
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
[2018-02-13] VITALS (13 sets, daily range): BP systolic 120–162; BP diastolic 72–87
[2018-02-13] MEDS: PIPERACILLIN/TAZOBACTAM 4.5 GM in IV NORMAL SALINE 100ML 100 ML IV SCH ×4 (00:28→17:21)
[2018-02-13 05:53] LABS: ALBUMIN/GLOBULIN RATIO 0.7 (1.0-1.7); CALCIUM 9.2 mg/dL (8.5-10.1); CREATININE 1.4 mg/dL (0.7-1.3); GFR 49.3; POTASSIUM 4.2 mmol/L (3.5-5.1); TOTAL BILIRUBIN 0.4 mg/dL (0.2-1.0); TOTAL PROTEIN 7.4 g/dL (6.4-8.2)
[2018-02-13 05:56] LABS: CHOLESTEROL/HDL RATIO 4.7
[2018-02-13] MEDS: INSULIN LISPRO 300 UNITS/3 ML INSULN.PEN. SQ SCH ×6 (08:00→17:31)
[2018-02-13] MEDS ORDERED: metFORMIN 500 MG TABLET PO SCH (08:00)
[2018-02-13] MEDS: FUROSEMIDE 20 MG TABLET PO SCH (09:00)
[2018-02-13] MEDS ORDERED: LISINOPRIL 20 MG TABLET PO SCH (09:00)
[2018-02-13] MEDS: CLOPIDOGREL BISULFATE 75 MG TABLET PO SCH (09:00)
--- NOTE | 2018-02-13 09:39 | PDOC ---
Provider Note Provider Note (please see full dictation) 77 yo male with long history of PVD who presents with an ulcer at the distal aspect of the left 2nd toe. Would recommend repeat angiogram with either Dr. Lara or IR. Left SFA with recurrent occlusion. KESHA GALINDO MD Feb 13, 2018 09:39
--- NOTE | 2018-02-13 10:09 | PDOC ---
Provider Note Provider Note Pt seen.H&P dictated. #[id number] MOSHE SMITH MD Feb 13, 2018 10:09
--- NOTE | 2018-02-13 10:13 | RAD ---
Chest, 2 views, 02/20/2018: HISTORY: Preop CABG Comparison is made to a study from 09/11/2014. The heart size is normal. There is calcific plaquing the aorta. There are scattered reticular opacities in the lungs compatible with scars. There is minimal pleural thickening bilaterally compatible with pleural plaques also evident on an old CT study from 01/25/2013. There are several calcified granulomata in the left lung. No pulmonary consolidation is seen. There is no evidence of pleural fluid. Moderate spurring is present in the spine. IMPRESSION: 1. Pleural/parenchymal scarring and old healed granulomatous disease. 2. No acute cardiopulmonary abnormality is detected. Electronically signed by: Santosh Sheets MD (02/13/2018 10:10 AM) [facility]
[2018-02-13] MEDS: IV NORMAL SALINE 1000ML BAG 1,000 ML IV SCH ×2 (11:00→21:00)
[2018-02-13] MEDS: METOPROLOL SUCC 24HR ER 25 MG TAB.ER.24H. PO SCH (11:15)
[2018-02-13] MEDS ORDERED: LIDOCAINE 1% Multi-Dose 50 ML VIAL. ONE (11:16)
[2018-02-13] MEDS ORDERED: IODIXANOL 320 MG/ML 100 ML VIAL. ONE (11:16)
--- NOTE | 2018-02-13 11:17 | PDOC2 ---
PATRICIA RESTREPO SKIDWAY MAN 02/13/18 1117: CARDIAC CONSULT DATE OF CONSULT Date of Consult DATE: 02/13/18 TIME: 10:50 REASON FOR CONSULT Reason for Consult: PVD, needs arteriogram REFERRING PHYSICIAN Referring Physician: Eliad SOURCE Source: Chart review, Patient HISTORY OF PRESENT ILLNESS HISTORY OF PRESENT ILLNESS This is a pleasant 77 yo male admitted for complains of left lower leg pain. Reports that his legs particularly his left lower leg has been hurting for months even after revascularization in 05/2017. It was tolerable to some degree and able to attend rehab. In the last month his LLE has been getting more painful and then this weekend particularly last Monday his left lower leg was very painful and having lots of cramps. Also he noticed blood in his sock and noted a wound to his 2nd toe at the tip. Denies any fever or chills. No CP, SOA but his walkig distance has decreased significantly because of the pain. He has stopped smoking remotely. He has been taking his medications and for the most part his DM2 has been controlled with last A1C at 6.9. He is on plavix but stopped his ASA on 12/2017 because he was bleeding easily and longer duration before it stops. PAST MEDICAL HISTORY Past Medical History Cardiovascular: CAD, HTN, MD, Hyperlipidemia, PAD, cardiomyopathy Pulmonary: COPD CENTRAL NERVOUS SYSTEM: Other (No pertinent history) Heme/Onc: No pertinent hx Hepatobiliary: No pertinent hx Psych: No pertinent hx Musculoskeletal: Osteoarthritis Rheumatologic: No pertinent hx Infectious disease: No pertinent hx ENT: No pertinent hx Renal/: No pertinent hx Endocrine: Diabetes (2) Dermatology: No pertinent hx PAST SURGICAL HISTORY Past Surgical History Cholecystectomy, Other (lower extremity stent r/t PVD), PCI/PAGIE to RCA, OPEN CLAIMS REPRESENTATIVE to LLE FAMILY HISTORY Family History: Coronary Artery Disease SOCIAL HISTORY Social History Smoke: No (quit many years ago) ALCOHOL: used to be a heavy drinker Lives: with Family Domestic Violence: Neg CURRENT MEDICATIONS CURRENT MEDICATIONS Current Medications Medications (Trade) Dose Ordered Sig/Klarissa Route PRN Reason Start Time Stop Time Status Last Admin Dose Admin Piperacillin Sod/ Tazobactam Sod 4.5 gm/Sodium Chloride 100 ml @ 200 mls/hr Q6HRS IV 02/12/18 18:30 02/13/18 05:51 Insulin Glargine (Lantus) 50 units QHS SQ 02/12/18 22:00 02/12/18 21:33 Simvastatin (Zocor) 20 mg HS PO 02/12/18 21:00 02/12/18 21:30 ALLERGIES ALLERGIES: Coded Allergies: No Known Drug Allergies (Unverified , 10/30/15) ROS Review of System 14 point ROS evaluated with pertinent psotives noted per HPI PHYSICAL EXAM General: Alert, Oriented X3, Cooperative, No acute distress HEENT: Atraumatic, Mucous membr. moist/pink Lungs: Clear to auscultation, Normal air movement Heart: Other (2/6 systolic murmur to apex) Abdomen: Soft, No tenderness Extremities: No cyanosis, No edema, Other (palpable DP and PT 2+ to right foot ; left foot DP and PT detectable to doppler and marked. cold but ping 3rd and 4th left toes. 5th toe is amputated) Skin: Other (left foot- 2nd toe tip ulceration) Neuro: Normal speech, Sensation intact Psych/Mental Status: Mental status NL, Mood NL MUSCULOSKELETAL: Osteoarthritic changes both hands VITALS VITALS Vital Signs Date Time Temp Pulse Resp B/P (MAP) Pulse Ox O2 Delivery O2 Flow Rate FiO2 02/13/18 08:00 Room Air 02/13/18 07:00 98.3 80 18 131/78 (95) 97 98.3 LABS Lab: Laboratory Tests Test 02/12/18 15:27 02/12/18 15:40 02/12/18 18:05 02/12/18 19:43 Glucose (Fingerstick) 213 mg/dL (70-99) 137 mg/dL (70-99) White Blood Count 9.4 x10^3/uL (4.0-11.0) Red Blood Count 4.75 x10^6/uL (4.30-5.70) Hemoglobin 14.3 g/dL (13.0-17.5) Hematocrit 42.0 % (39.0-53.0) Mean Corpuscular Volume 88 fL (79-100) Mean Corpuscular Hemoglobin 30 pg (25-35) Mean Corpuscular Hemoglobin Concent 34 g/dL (31-37) Red Cell Distribution Width 14.1 % (11.5-14.5) Platelet Count 240 x10^3/uL (140-400) Neutrophils (%) (Auto) 71 % (31-73) Lymphocytes (%) (Auto) 17 % (24-48) Monocytes (%) (Auto) 9 % (0-9) Eosinophils (%) (Auto) 3 % (0-3) Basophils (%) (Auto) 0 % (0-3) Neutrophils # (Auto) 6.7 x10^3uL (1.8-7.7) Lymphocytes # (Auto) 1.6 x10^3/uL (1.0-4.8) Monocytes # (Auto) 0.8 x10^3/uL (0.0-1.1) Eosinophils # (Auto) 0.3 x10^3/uL (0.0-0.7) Basophils # (Auto) 0.0 x10^3/uL (0.0-0.2) Sodium Level 140 mmol/L (136-145) Potassium Level 4.8 mmol/L (3.5-5.1) Chloride Level 103 mmol/L (98-107) Carbon Dioxide Level 27 mmol/L (21-32) Anion Gap 10 (6-14) Blood Urea Nitrogen 22 mg/dL (8-26) Creatinine 1.5 mg/dL (0.7-1.3) Estimated GFR (Cockcroft-Gault) 45.5 Glucose Level 198 mg/dL (70-99) Calcium Level 9.2 mg/dL (8.5-10.1) Lactic Acid Level 1.6 mmol/L (0.4-2.0) Test 02/13/18 04:50 02/13/18 07:37 Sodium Level 142 mmol/L (136-145) Potassium Level 4.2 mmol/L (3.5-5.1) Chloride Level 104 mmol/L (98-107) Carbon Dioxide Level 31 mmol/L (21-32) Anion Gap 7 (6-14) Blood Urea Nitrogen 20 mg/dL (8-26) Creatinine 1.4 mg/dL (0.7-1.3) Estimated GFR (Cockcroft-Gault) 49.3 BUN/Creatinine Ratio 14 (6-20) Glucose Level 135 mg/dL (70-99) Calcium Level 9.2 mg/dL (8.5-10.1) Total Bilirubin 0.4 mg/dL (0.2-1.0) Aspartate Amino Transf (AST/SGOT) 15 U/L (15-37) Alanine Aminotransferase (ALT/SGPT) 21 U/L (16-63) Alkaline Phosphatase 51 U/L (46-116) Total Protein 7.4 g/dL (6.4-8.2) Albumin 3.0 g/dL (3.4-5.0) Albumin/Globulin Ratio 0.7 (1.0-1.7) Triglycerides Level 164 mg/dL (0-150) Cholesterol Level 128 mg/dL (0-200) LDL Cholesterol, Calculated 68 mg/dL (0-100) VLDL Cholesterol, Calculated 33 mg/dL (0-40) Non-HDL Cholesterol Calculated 101 mg/dL (0-129) HDL Cholesterol 27 mg/dL (40-60) Cholesterol/HDL Ratio 4.7 Thyroid Stimulating Hormone (TSH) 1.356 uIU/mL (0.358-3.74) Glucose (Fingerstick) 120 mg/dL (70-99) IMAGES IMAGES OPEN CLAIMS REPRESENTATIVE LLE Conclusion Successful complex OPEN CLAIMS REPRESENTATIVE/stents placement to long chronic total occlusion involving the left superficial femoral and popliteal arteries and successful balloon OPEN CLAIMS REPRESENTATIVE to the left anterior tibial artery. Recommendations 1. Aspirin 81 mg daily 2. Plavix 75 mg daily 3. Vascular risk factor modification including regular exercise regimen DATE: 06/06/17 1338 ECHOCARDIOGRAM ECHOCARDIOGRAM <Conclusion> The Left Ventricle is mildly dilated. The systolic function is mildly impaired. The Ejection Fraction is 40-45%. There is mild global hypokinesis of the left ventricle. There is borderline to mild concentric left ventricular hypertrophy. The aortic valve is calcified. There is mild valvular aortic stenosis. Doppler and Color Flow revealed trace aortic regurgitation. Doppler and Color-flow revealed mild to moderate mitral regurgitation. Doppler and Color Flow revealed trace tricuspid valve regurgitation. DATE: 01/11/18 1152 HEART CATH HEART CATH Conclusion 1. 80% stenosis involving the proximal segment of right coronary artery. 50% stenosis involving midsegment of the left anterior descending artery, physiologically insignificant based on FFR measurement. 2. Successful PCI/drug eluting stent placement to the right coronary artery. 3. Moderate left ventricle systolic dysfunction with ejection fraction estimated at 30%. Recommendations 1. Aspirin 325 mg daily 2. Plavix 75 mg daily for preferably one year 3. Cardiovascular risk factor modification DATE: 05/26/17 0948 ASSESSMENT/PLAN ASSESSMENT/PLAN 1. LLE Severe PAD with claudications and 2nd toe ulceration: possible osteomyelitis Duplex as noted 1. Stent from SFA to peroneal artery which appears occluded. 2. Advanced atherosclerotic disease in the anterior tibial, posterior tibial and dorsalis pedis arteries although some patency appears preserved. 2. CAD: Prior PCI/PAIGE to RCA, clinically stable 3. ICM: last EF at 40-45%. Compensated 4. HTN: controlled 5. DM2/HLP: on goal 6. COPD: quit smoking remotely. stable 7. CKD?: Cr at 1.4 Recommendations 1. Restart ASA, continue plavix. 2. Continue secondary prevention 3. Femoral runoff today with possible OPEN CLAIMS REPRESENTATIVE, risks and benefits explained and agreeable to proceed. 4. Continue IVF for contrast prep. Hold ACEi for now with pending contrast exposure. Will start on toprol XL. Hydralazine PO PRN. 5. Hold metformin in the next 48 hours pot runoff. 6. Antibiotics per PCP WARNER MAHARAJ MD 02/13/18 1542: CARDIAC CONSULT ASSESSMENT/PLAN ASSESSMENT/PLAN Patient seen and examined. Agree with ASSOCIATE SALES's assessment and plan. Symptoms consistent with critical limb ischemia Plan for aortogram with runoff today. Risks and benefits were explained. Continue current treatment for osteomyelitis of left second toe per ID team CAD status clinically stable Cardiomyopathy clinically well compensated Thank you for your consultation PATRICIA RESTREPO APRN Feb 13, 2018 11:17 WARNER MAHARAJ MD Feb 13, 2018 15:42
[2018-02-13] MEDS ORDERED: MIDAZOLAM HCL/PF 2 MG/2 ML VIAL. ONE ×2 (11:19→11:53)
[2018-02-13] MEDS ORDERED: fentaNYL PF VIAL 100 MCG/2 ML VIAL ONE (11:19)
--- NOTE | 2018-02-13 11:24 | HP ---
ADMIT DATE: 02/12/2018 PATIENT LOCATION: 430. REASON FOR ADMISSION TO THE HOSPITAL: Left foot ischemia, second toe distal ulceration. HISTORY OF PRESENT ILLNESS: The patient is a 77-year-old male with a history of severe peripheral vascular disease, had a bypass to right lower extremity as well as left lower extremity. He also had stents in the left lower extremity. He had previous amputation of the left fifth toe. He was having pain shooting to the left foot for the last 3 weeks, got progressively worse. He developed a small callus with ulceration at the tip of the second toe and the pain was getting worse, came to the Emergency Room and had a venous Doppler negative for DVT. Arterial Doppler shows the stent she had in the leg was blocked. The patient was admitted for further vascular workup. PAST MEDICAL HISTORY: He has history of coronary artery disease; history of cardiac stent, right coronary artery, less than a year ago; congestive heart failure; hypertension; diabetes and hyperlipidemia. PAST SURGICAL HISTORY: He had a bypass to both lower extremities, right as well as left extremity. I think he had at least twice done on the left leg, had stents in the leg. Gallbladder surgery and left fifth toe amputated. ALLERGIES: No known drug allergies. MEDICATIONS AT HOME: The patient is on Plavix 75 mg daily, Lasix 20 mg daily, insulin 30 units 3 times daily, Levemir 15 units at bedtime, lisinopril 40 mg daily, metformin 500 mg 2 tablets twice a day and simvastatin 20 mg daily. PERSONAL HISTORY: Smoker, quit 5 years ago, smoked one to two packs for at least 30 years. Social alcohol. Denies any street drugs. 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 FAMILY HISTORY: Positive for diabetes and heart disease. REVIEW OF SYMPTOMS: CARDIAC MAI: No chest pain. GASTROINTESTINAL: No nausea or vomiting. EXTREMTIES: Complains of pain in the foot and the leg, going on for 3 weeks. Rest of the 14 systems were reviewed and negative. PHYSICAL EXAMINATION: GENERAL: On examination, the patient is not in any distress. VITAL SIGNS: Temperature 98, pulse 86, respirations 18, blood pressure 156/65 and 96% on room air. HEENT: Head is atraumatic. Pupils equal. Oral cavity, no congestion. NECK: Supple. Thyroid not enlarged. JVD not elevated. CHEST: Symmetrical. CARDIOVASCULAR: S1, S2. LUNGS: Clear to auscultation. No wheezing. ABDOMEN: Soft. Bowel sounds present. No mass palpable. EXTERNAL GENITALIA: No Gordon. EXTREMITIES: Right leg scar in the upper thigh from bypass. No ulcerations. On the left leg, he has a scar in the left upper thigh from bypass to the left extremity. The patient had left fifth toe amputation in the past, feels good slightly. Pallor in the left foot. He has a small ulceration at the distal tip of the second toe, with callus which is less than a centimeter circumference. No palpable pulsations present in the left leg. LABORATORY DATA: Shows a white count 9, hemoglobin 14 and platelets 240,000. Electrolytes show sodium 142, potassium 4.2, chloride 100, bicarbonate 31, BUN 20, creatinine 1.4 and glucose 135. Lactic acid 1.6. LFTs normal. TSH 1.5. Cholesterol 128, LDL is 68 and HDL 27. X-ray of the foot, questionable second toe osteo at the distal tip. Venous Doppler negative for DVT. Doppler shows a graft closed in the left femoral artery, not patent. FINAL IMPRESSION: 1. Ischemia of the left foot. 2. Peripheral vascular disease, history of previous bypass to both right and left lower extremities and he also had history of stents placed and angioplasties, left lower leg. 3. Coronary artery disease, history of angioplasty, stent in the heart. 4. Chronic systolic heart failure. Ejection fraction was 30% two years ago, improved to 45%, now with medications. 5. Hypertension. 6. Hyperlipidemia. 7. Diabetes. 8. Previous left fifth toe amputation. 9. Ex-smoker. 10.Lt 2nd toe osteomyelitis PLAN: At this time, admit to the hospital. Vascular was consulted. We will also consult Cardiology, probably he needs an arteriogram and also hydrate the patient before arteriogram and further recommendations to follow once the arteriogram is available. MOSHE SMITH MD DR: KERVIN/catalina JOB#: [id number] / [id number] DANUTA
--- NOTE | 2018-02-13 11:25 | PDOC ---
Infectious Disease Note Vital Sign Vital Signs Vital Signs Date Time Temp Pulse Resp B/P (MAP) Pulse Ox O2 Delivery O2 Flow Rate FiO2 02/13/18 08:00 Room Air 02/13/18 07:00 98.3 80 18 131/78 (95) 97 98.3 Labs Lab Laboratory Tests Test 02/12/18 15:27 02/12/18 15:40 02/12/18 18:05 02/12/18 19:43 Glucose (Fingerstick) 213 mg/dL (70-99) 137 mg/dL (70-99) White Blood Count 9.4 x10^3/uL (4.0-11.0) Red Blood Count 4.75 x10^6/uL (4.30-5.70) Hemoglobin 14.3 g/dL (13.0-17.5) Hematocrit 42.0 % (39.0-53.0) Mean Corpuscular Volume 88 fL (79-100) Mean Corpuscular Hemoglobin 30 pg (25-35) Mean Corpuscular Hemoglobin Concent 34 g/dL (31-37) Red Cell Distribution Width 14.1 % (11.5-14.5) Platelet Count 240 x10^3/uL (140-400) Neutrophils (%) (Auto) 71 % (31-73) Lymphocytes (%) (Auto) 17 % (24-48) Monocytes (%) (Auto) 9 % (0-9) Eosinophils (%) (Auto) 3 % (0-3) Basophils (%) (Auto) 0 % (0-3) Neutrophils # (Auto) 6.7 x10^3uL (1.8-7.7) Lymphocytes # (Auto) 1.6 x10^3/uL (1.0-4.8) Monocytes # (Auto) 0.8 x10^3/uL (0.0-1.1) Eosinophils # (Auto) 0.3 x10^3/uL (0.0-0.7) Basophils # (Auto) 0.0 x10^3/uL (0.0-0.2) Sodium Level 140 mmol/L (136-145) Potassium Level 4.8 mmol/L (3.5-5.1) Chloride Level 103 mmol/L (98-107) Carbon Dioxide Level 27 mmol/L (21-32) Anion Gap 10 (6-14) Blood Urea Nitrogen 22 mg/dL (8-26) Creatinine 1.5 mg/dL (0.7-1.3) Estimated GFR (Cockcroft-Gault) 45.5 Glucose Level 198 mg/dL (70-99) Calcium Level 9.2 mg/dL (8.5-10.1) Lactic Acid Level 1.6 mmol/L (0.4-2.0) Test 02/13/18 04:50 02/13/18 07:37 Sodium Level 142 mmol/L (136-145) Potassium Level 4.2 mmol/L (3.5-5.1) Chloride Level 104 mmol/L (98-107) Carbon Dioxide Level 31 mmol/L (21-32) Anion Gap 7 (6-14) Blood Urea Nitrogen 20 mg/dL (8-26) Creatinine 1.4 mg/dL (0.7-1.3) Estimated GFR (Cockcroft-Gault) 49.3 BUN/Creatinine Ratio 14 (6-20) Glucose Level 135 mg/dL (70-99) Calcium Level 9.2 mg/dL (8.5-10.1) Total Bilirubin 0.4 mg/dL (0.2-1.0) Aspartate Amino Transf (AST/SGOT) 15 U/L (15-37) Alanine Aminotransferase (ALT/SGPT) 21 U/L (16-63) Alkaline Phosphatase 51 U/L (46-116) Total Protein 7.4 g/dL (6.4-8.2) Albumin 3.0 g/dL (3.4-5.0) Albumin/Globulin Ratio 0.7 (1.0-1.7) Triglycerides Level 164 mg/dL (0-150) Cholesterol Level 128 mg/dL (0-200) LDL Cholesterol, Calculated 68 mg/dL (0-100) VLDL Cholesterol, Calculated 33 mg/dL (0-40) Non-HDL Cholesterol Calculated 101 mg/dL (0-129) HDL Cholesterol 27 mg/dL (40-60) Cholesterol/HDL Ratio 4.7 Thyroid Stimulating Hormone (TSH) 1.356 uIU/mL (0.358-3.74) Glucose (Fingerstick) 120 mg/dL (70-99) Objective Assessment Left 2nd toe distal phalanx osteomyelitis PAD CAD HTN DM Plan Plan of Care angiogram pending need partial amputation of 2nd toe cont antibiotics for now supportive care MADONNA IBARRA MD Feb 13, 2018 11:24
[2018-02-13] MEDS ORDERED: fentaNYL PF VIAL 100 MCG/2 ML VIAL IV ONE (11:30)
[2018-02-13] MEDS ORDERED: LIDOCAINE 2% 20 ML VIAL. IJ ONE (11:30)
[2018-02-13] MEDS ORDERED: IODIXANOL 320 MG/ML 100 ML VIAL. IART ONE (11:30)
[2018-02-13] MEDS ORDERED: MIDAZOLAM HCL/PF 2 MG/2 ML VIAL. IV ONE (11:30)
--- NOTE | 2018-02-13 12:58 | CONS ---
DATE OF CONSULTATION: 02/13/2018 CHIEF COMPLAINT: Left second toe ulcer. HISTORY OF PRESENT ILLNESS: The patient is a 77-year-old male with a long history of peripheral arterial disease. He has had previous left femoral popliteal bypass graft by Dr. Pizarro in 2014. He underwent revision of his distal bypass in 2015. He presented earlier this year with recurrent occlusion with significant ischemic rest pain. He had percutaneous revascularization by Dr. Lara at that time. He now presents with at least a 1-2 week history of left distal second toe discoloration and pain. He denies any chest pain or shortness of breath. PAST MEDICAL HISTORY: 1. Peripheral arterial disease. 2. History of intermittent atrial fibrillation. 3. Hypertension. 4. Hyperlipidemia. 5. COPD. 6. Diabetes. PAST SURGICAL HISTORY: 1. Cholecystectomy. 2. Left femoral popliteal bypass graft (2014), revision of bypass graft (2015). 3. Left SFA angioplasty and stent placement (05/2017). MEDICATIONS: Include Plavix, amlodipine, metformin, Lasix, lisinopril, simvastatin, aspirin, Lantus. ALLERGIES: No known drug allergies. SOCIAL HISTORY: He denies any smoking for over 23 years. He denies any alcohol use. FAMILY HISTORY: Noncontributory. REVIEW OF SYSTEMS: No recent fevers, chills, chest pain or shortness of breath. No unilateral weakness, numbness or visual loss. The patient has no other TIA or stroke symptoms. No nausea, vomiting, diarrhea, constipation, hematochezia, melena or GI symptoms. He has decreased sensation in both feet consistent with some mild peripheral neuropathy. PHYSICAL EXAMINATION: GENERAL: This is a well-developed male, in no acute distress. VITAL SIGNS: Temperature 98.3, pulse 80, blood pressure 131/78, respirations 16. NECK: Supple, no lymphadenopathy. CARDIOVASCULAR: Regular rhythm. ABDOMEN: Soft, nontender, nondistended. No palpable masses. EXTREMITIES: He has palpable radial and femoral pulses bilaterally. His right pedal pulses are easily palpable. No areas of skin breakdown on his right lower leg or foot. His left popliteal and pedal pulses are nonpalpable. He has well-healed surgical scars in the medial aspect of his left leg. He has an eschar at the distal aspect of his left second toe. There is no surrounding erythema or areas of fluctuance at this time. No other areas of skin breakdown noted. LABORATORY DATA: Significant for white blood cell 9.4, hemoglobin 14.3, platelet count of 240. Sodium 142, potassium 4.2, BUN 20, creatinine 1.4, glucose 135, LDL 68. Triglycerides 164. Arterial ultrasound showed extensive stents in the left lower extremity from the superficial femoral artery, reportedly down to the peroneal artery that are occluded. IMPRESSION: 1. Severe peripheral vascular disease with gangrenous eschar at the tip of the left second toe. 2. Diabetes. 3. Hypertension. 4. Hyperlipidemia. RECOMMENDATION: He will require repeat angiography to determine the extent of his peripheral arterial disease. This will guide efforts toward revascularization. He has already had previous failed bypass as well as failed percutaneous intervention. It is unclear what options will be left. He may have to be considered for redo distal bypass. I discussed risks and potential benefits with him. He acknowledged and request to proceed. Angiogram can be performed by either Dr. Lara or Interventional Radiology. KESHA GALINDO MD DR: EDITA/catalina JOB#: [id number] / [id number] MOSHE Hernández MD
--- NOTE | 2018-02-13 13:59 | CONS ---
DATE OF CONSULTATION: 02/13/2018 REQUESTING PHYSICIAN: Dr. Marrero. REASON FOR CONSULTATION: Left second toe osteomyelitis. HISTORY OF PRESENT ILLNESS: This is a 77-year-old gentleman who came in with left leg and toe pain. The patient says it has been going on for about 2 weeks or so, he was standing in a puddle of water for a long period of time and then he realized that he started hurting and the color changed, discolored the tip of the toe. The patient has been having peripheral vascular disease and has had angioplasty and stenting done in the past also. The patient's x-ray of the foot showed there is osteomyelitis of the distal tuft. The patient denies any fever, denies any nausea, vomiting, diarrhea, chest pain, shortness of breath, abdominal pain, urinary symptoms or bowel symptoms. PAST MEDICAL HISTORY: Positive for coronary artery disease, diabetes mellitus, hypertension, hyperlipidemia, left lower extremity angioplasty and stenting done. He has had a fifth toe amputation done on the left. SOCIAL HISTORY: Negative for smoking, alcohol, illicit drug use. ALLERGIES: No known drug allergies. CURRENT MEDICATIONS: The patient is on Zosyn. REVIEW OF SYSTEMS: As per HPI, all other systems reviewed and are negative. PHYSICAL EXAMINATION: GENERAL: Alert and oriented gentleman, not in distress. VITAL SIGNS: Stable, afebrile. HEENT: NAD. NECK: Supple, no JVP, no lymphadenopathy. LUNGS: Clear. HEART: S1, S2 regular. ABDOMEN: Benign. EXTREMITIES: No edema or cyanosis. SKIN: Unremarkable. The patient is neurologically intact. In particular, left foot the second toe has black discoloration on the distal tip. There is no open area, there is no drainage. His dorsalis pedis is very weakly palpable on the left foot with a good pulse on the right foot. There is no other open wound or discoloration seen. NEUROLOGIC: The patient is neurologically intact. LABORATORY DATA: White count is normal. BUN and creatinine is 20 and 1.4. Lactic acid was 1.6. His duplex scan showed a stent in the SFA to peroneal artery, which appears occluded, advanced atherosclerotic disease in the anterior tibial, posterior tibial and dorsalis pedis. In the foot x-ray, as I mentioned, the patient has second toe tuft with osteomyelitis. Chest x-ray unremarkable other than some scarring and granulomatous changes. IMPRESSION: 1. Left second toe osteomyelitis with some discoloration at the tip. 2. Peripheral arterial disease with occluded stent. 3. Diabetes. 4. Hypertension. 5. Coronary artery disease. 6. Hyperlipidemia. RECOMMENDATIONS: Angiogram has been ordered to further evaluate and take care of the circulation. The second toe tip or the distal phalanx might need to be amputated, although right now I would continue with Zosyn for the time being and supportive care and wait for the angiogram. Thank you very much, Dr. Marrero, for giving me the opportunity to participate in this patient's care. MADONNA IBARRA MD DR: JEFFY/catalina JOB#: [id number] / [id number]
--- NOTE | 2018-02-13 14:01 | PDOC ---
MODERATE SEDATION ASSESSMENT RISKS/ALTERNATIVES Risks/Alternatives Risks and alternatives of this type of sedation and procedure discussed with: RISK/ALTERNATIVES: Patient H & P ON CHART H & P H & P on chart and reviewed for co-morbid conditions and appropriate labs. H&P ON CHART: Yes STATUS PREG STATUS ASSESSED: N/A MEDS/ALLERGIES REVIEWED Meds/Allergies Reviewed Medications and Allergies including time and route of recently administered narcotics and sedatives. MEDS/ALLERGIES REVIEWED: Yes ASA RATING ASA RATING: III AIRWAY ASSESSMENT Airway Assessment Airway patency, oral function limitations, presence of caps, crowns, dentures, partials, and ability to extend neck assessed. AIRWAY ASSESSMENT: Yes MALLAMPATI SCORE MALLAMPATI SCORE: II PRE-SEDATION ASSESSMENT PRE-SEDATION ASSESSMENT: Yes WARNER MAHARAJ MD Feb 13, 2018 14:01
[2018-02-13] MEDS ORDERED: ACETAMINOPHEN 325 MG TABLET. PO PRN (14:15)
[2018-02-13] MEDS ORDERED: NITROGLYCERIN SUBLINGUAL 0.4 MG BOTTLE OF 25. SL PRN (14:15)
--- NOTE | 2018-02-13 14:23 | CARD ---
MR#: [id number] Date of Study: 02/13/2018 Ordering Physician: PATRICIA RESTREPO, Referring Physician: MOSHE SMITH Tech: RT Michael (R) APPROVED REPORT Technologist: Corinne Briones RT (R) Nurse: Sharda Hawkins RN Procedure(s) performed: Aortogram with bilateral lower extremity runoff Moderate sedation: 73 min INDICATION The indication(s) include : Peripheral artery disease with critical limb ischemia. PROCEDURE NARRATIVE After explaining the risks, benefits and alternative options, informed consent was obtained from geno ent. Patient was brought to the cardiac [place] [employer] and his right groin was prepped and draped in the us ual fashion. 20 mL of 2% lidocaine was infiltrated into the skin and subcutaneous tissues for local a nesthesia. Arterial access was obtained in the right common femoral artery and a 6 [place]ar[place]uan sheath was inserted. 6 [place]uan pigtail catheter was used to perform aortogram with bilateral lower extremity runo ff. The aortic betty was crossed using 6 [place] omniflush catheter was then exchanged over a 0.035 i mdh Glidewire advantage Glidewire to 4 [place]uan angled glide catheter and with the tip positioned in th e left common femoral artery, selective left lower extremity angiography was performed. Patient jacoby ated the procedure well. Hemostasis in the right groin was achieved using Angio-Seal. There were no i mmediate complications. FINDINGS 1. No significant stenosis involving the distal descending aorta 2. The right common iliac artery showed 40-50% in-stent restenosis in the proximal segment that was described in prior angiography. The left common iliac artery showed a widely patent stent. 3. No significant stenosis involving the right external iliac artery. The left external iliac artery showed widely patent stent. 4. The common femoral arteries bilaterally showed evidence of previous endarterectomy without any si gnificant stenosis. 5. 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 6. The right superficial femoral artery showed 50% stenosis in the proximal segment and 30% stenosis in the midsegment. The left superficial femoral artery showed long 100% in-stent occlusion involving the entire vessel. 7. The right profunda femoris artery showed 100% chronic total occlusion that was described in prior angiography. The left profunda femoris artery is a large vessel that did not show any significant st enosis. This supplies although collaterals to below the knee vessels. 8. The right popliteal artery showed 50% stenosis. The left popliteal artery showed 100% in-stent oc clusion. 9. There is poor visualization of below the knee vessels in right lower extremity but there appears to be three-vessel runoff. 10. The left peroneal artery reconstitutes via collaterals from the profunda femoris artery. The lef t anterior tibial artery showed 100% chronic occlusion in the proximal segment with reconstitution in the proximal to mid segment via collaterals. There is no significant stenosis in the mid and distal segments. The dorsalis pedis showed 100% occlusion. The left peroneal artery is widely patent in its entire course. The left posterior tibial artery showed 100% chronic occlusion the proximal segment wi th reconstitution in the proximal to midsegment from collaterals. The rest of the vessel during its e ntire course was widely patent. Conclusion 1. 40-50% in-stent restenosis involving the right common iliac artery and widely patent previously pl aced stents in the left common and external iliac arteries. 2. 100% in-stent occlusion involving the entire course of the left superficial femoral artery and al so the left popliteal artery with reconstitution of below the knee vessels as described above via col laterals from the profunda femoris artery. Recommendations Vascular surgery team consultation for possible surgical revascularization. If patient is deemed a poor candidate, we will attempt percutaneous revascularization Signed by : Romero Lara, Electronically Approved : 02/13/2018 14:22:38
--- NOTE | 2018-02-13 14:27 | PDOC2 ---
CONSULT Date of Consult Date of Consult DATE: 02/13/18 TIME: 10:14 Reason for Consult Reason for Consult: Left 2nd toe DFU with underlying osteomyelitis Referring Physician Referring Physician: Dr Li Identification/Chief Complaint Problems: (1) Diabetic foot ulcer with osteomyelitis (2) PAD (peripheral artery disease) Source Source: Chart review, Patient History of Present Illness Reason for Visit: Pt is a 77 year old male who presented to the ER with increased pain, swelling and redness of his left 2nd toe. Pt states the sore to the tip of the 2nd toe has been present for approximately 2 weeks. Pt states he cut off some "extra skin" from around the wound. Over the last two weeks the two has become more painful and red. Pt denies fevers. Pt with underlying diabetes. Pt denies hx of DFU or difficulty with wound healing. Pt states left 5th toe amputated secondary to crowley bite. Past Medical History Cardiovascular: CAD, HTN, MS, Hyperlipidemia Pulmonary: COPD CENTRAL NERVOUS SYSTEM: Other Heme/Onc: No pertinent hx Hepatobiliary: No pertinent hx Psych: No pertinent hx Musculoskeletal: Osteoarthritis Rheumatologic: No pertinent hx Infectious disease: No pertinent hx Renal/: No pertinent hx Endocrine: Diabetes Past Surgical History Past Surgical History: Cholecystectomy, Other Family History Family History: Coronary Artery Disease Social History ALCOHOL: heavy Lives: with Family Domestic Violence: Neg Current Medications Current Medications Current Medications Piperacillin Sod/ Tazobactam Sod (Zosyn Per Pharmacy) 1 each PRN DAILY PRN MC SEE COMMENTS; Start 02/12/18 at 18:30 Ondansetron HCl (Zofran) 4 mg PRN Q8HRS PRN IV NAUSEA/VOMITING; Start at 18:30; Stop 02/13/18 at 18:29 Acetaminophen (Tylenol) 650 mg PRN Q4HRS PRN PO FEVER; Start 02/12/18 at 18:30 ; Stop 02/13/18 at 18:29 Piperacillin Sod/ Tazobactam Sod 4.5 gm/Sodium Chloride 100 ml @ 200 mls/hr Q6HRS IV Last administered on 02/13/18at 05:51; Start 02/12/18 at 18:30 Clopidogrel Bisulfate (Plavix) 75 mg DAILY PO ; Start 02/13/18 at 09:00 Furosemide (Lasix) 20 mg DAILY PO ; Start 02/13/18 at 09:00 Lisinopril (Prinivil) 40 mg DAILY PO ; Start 02/13/18 at 09:00; Stop 02/13/18 at 11:17; Status DC Insulin Human Lispro (HumaLOG) 30 units TIDWMEALS SQ ; Start 02/13/18 at 08:00 Insulin Glargine (Lantus) 50 units QHS SQ Last administered on 02/12/18at 21:33 ; Start 02/12/18 at 22:00 Metformin HCl (Glucophage) 1,000 mg BIDWMEALS PO ; Start 02/13/18 at 08:00; Stop 02/13/18 at 11:17; Status DC Simvastatin (Zocor) 20 mg HS PO Last administered on 02/12/18at 21:30; Start 02/12/18 at 21:00 Insulin Human Lispro (HumaLOG) 0-5 UNITS TIDWMEALS SQ ; Start 02/13/18 at 08:00 Dextrose (Dextrose 50%-Water Syringe) 12.5 gm PRN Q15MIN PRN IV SEE COMMENTS; Start 02/12/18 at 21:30 Sodium Chloride 1,000 ml @ 100 mls/hr Q10H IV ; Start 02/13/18 at 11:00 Aspirin (Ecotrin) 81 mg DAILYWBKFT PO ; Start 02/13/18 at 10:00 Metoprolol Succinate (Toprol Xl) 25 mg DAILY PO ; Start 02/13/18 at 11:15 Hydralazine HCl (Apresoline) 50 mg PRN Q6HRS PRN PO ELEVATED BP, SEE COMMENTS; Start 02/13/18 at 11:15 Iodixanol (Visipaque 320) 100 ml STK-MED ONCE .ROUTE ; Start 02/13/18 at 11:16 ; Stop 02/13/18 at 11:17; Status DC Lidocaine HCl (Lidocaine 1% 50ml Vial) 50 ml STK-MED ONCE .ROUTE ; Start at 11:16; Stop 02/13/18 at 11:17; Status DC Heparin Sodium/ Sodium Chloride 500 ml @ As Directed STK-MED ONCE .ROUTE ; Start 02/13/18 at 11:16; Stop 02/13/18 at 11:17; Status DC Fentanyl Citrate (Fentanyl 2ml Vial) 100 mcg STK-MED ONCE .ROUTE ; Start at 11:19; Stop 02/13/18 at 11:20; Status DC Midazolam HCl (Versed) 2 mg STK-MED ONCE .ROUTE ; Start 02/13/18 at 11:19; Stop 02/13/18 at 11:20; Status DC Heparin Sodium/ Sodium Chloride (HEPARIN for ARTERIAL LINE FLUSH) 1,000 unit 1X ONCE IART Last administered on 02/13/18at 11:30; Start 02/13/18 at 11:30; Stop 02/13/18 at 11:31; Status DC Midazolam HCl (Versed) 2 mg 1X ONCE IV Last administered on 02/13/18at 11:30; Start 02/13/18 at 11:30; Stop 02/13/18 at 11:31; Status DC Fentanyl Citrate (Fentanyl 2ml Vial) 100 mcg 1X ONCE IV Last administered on 02/13/18at 11:30; Start 02/13/18 at 11:30; Stop 02/13/18 at 11:31; Status DC Iodixanol (Visipaque 320) 100 ml 1X ONCE IART Last administered on 02/13/18at 11:30; Start 02/13/18 at 11:30; Stop 02/13/18 at 11:31; Status DC Lidocaine HCl 20 ml 1X ONCE IJ Last administered on 02/13/18at 11:30; Start 02/13/18 at 11:30; Stop 02/13/18 at 11:31; Status DC Midazolam HCl (Versed) 2 mg STK-MED ONCE .ROUTE ; Start 02/13/18 at 11:53; Stop 02/13/18 at 11:54; Status DC Sodium Chloride 1,000 ml @ 100 mls/hr Q10H IV ; Start 02/13/18 at 14:01 Acetaminophen (Tylenol) 650 mg PRN Q6HRS PRN PO MILD PAIN; Start 02/13/18 at 14:15 Nitroglycerin (Nitrostat) 0.4 mg PRN Q5MIN PRN SL CHEST PAIN; Start 02/13/18 at 14:15 Active Scripts Active Reported Lasix (Furosemide) 20 Mg Tablet 1 Tab PO DAILY Levemir (Insulin Detemir) 100 Unit/1 Ml Vial 50 Unit SQ HS Plavix (Clopidogrel Bisulfate) 75 Mg Tablet 1 Tab PO DAILY Metformin Hcl 500 Mg Tablet 2 Tab PO BID Hold for 48 hours, next dose evening 06/08/17 Lisinopril 40 Mg Tablet 1 Tab PO DAILY Simvastatin 20 Mg Tablet 1 Tab PO QHS Novolog (Insulin Aspart) 100 Unit/1 Ml Cartridge 30 Unit SQ TIDAC Allergies Allergies: Coded Allergies: No Known Drug Allergies (Unverified , 10/30/15) ROS Review of System CONSTITUTIONAL: No fever or chills EYES: No recent changes SKIN: No rash or itching. C/o pain of left 2nd toe along with discoloration/redness. CARDIOVASCULAR: No chest pain, syncope, palpitations. Pt states increased edema to LLE over course of last week. RESPIRATORY: No SOB or cough GASTROINTESTINAL: No nausea, vomiting or abdominal pain. States he has a good appetite and has been eating well. NEUROLOGICAL: No headaches or weakness ENDOCRINE: No cold or heat intolerance GENITOURINARY: No urgency or frequency of urination MUSCULOSKELETAL: No back pain or joint pain LYMPHATICS: No enlarged lymph nodes PSYCHIATRIC: No anxiety or depression Physical Exam General: Alert, Oriented X3, Cooperative, No acute distress HEENT: Atraumatic, EOMI Abdomen: Soft, No tenderness, No masses Extremities: No clubbing, Other (LLE with 1+ pitting edema. Foot erythemic, more prominent around affect toe, with decreased cap refill.) Skin: Other (Left 2nd toe with intact scab to distal aspect. No active drainage. No odor. Surrounding tissue erythemic and warm. ) Neuro: Normal gait, Normal speech Psych/Mental Status: Mental status NL, Mood NL Vitals VITALS Vital Signs Date Time Temp Pulse Resp B/P (MAP) Pulse Ox O2 Delivery O2 Flow Rate FiO2 02/13/18 13:01 78 14 100 Nasal Cannula 2.0 02/13/18 11:00 98.3 123/74 (90) 98.3 Labs Labs Laboratory Tests Test 02/12/18 15:27 02/12/18 15:40 02/12/18 18:05 02/12/18 19:43 Glucose (Fingerstick) 213 mg/dL (70-99) 137 mg/dL (70-99) White Blood Count 9.4 x10^3/uL (4.0-11.0) Red Blood Count 4.75 x10^6/uL (4.30-5.70) Hemoglobin 14.3 g/dL (13.0-17.5) Hematocrit 42.0 % (39.0-53.0) Mean Corpuscular Volume 88 fL (79-100) Mean Corpuscular Hemoglobin 30 pg (25-35) Mean Corpuscular Hemoglobin Concent 34 g/dL (31-37) Red Cell Distribution Width 14.1 % (11.5-14.5) Platelet Count 240 x10^3/uL (140-400) Neutrophils (%) (Auto) 71 % (31-73) Lymphocytes (%) (Auto) 17 % (24-48) Monocytes (%) (Auto) 9 % (0-9) Eosinophils (%) (Auto) 3 % (0-3) Basophils (%) (Auto) 0 % (0-3) Neutrophils # (Auto) 6.7 x10^3uL (1.8-7.7) Lymphocytes # (Auto) 1.6 x10^3/uL (1.0-4.8) Monocytes # (Auto) 0.8 x10^3/uL (0.0-1.1) Eosinophils # (Auto) 0.3 x10^3/uL (0.0-0.7) Basophils # (Auto) 0.0 x10^3/uL (0.0-0.2) Sodium Level 140 mmol/L (136-145) Potassium Level 4.8 mmol/L (3.5-5.1) Chloride Level 103 mmol/L (98-107) Carbon Dioxide Level 27 mmol/L (21-32) Anion Gap 10 (6-14) Blood Urea Nitrogen 22 mg/dL (8-26) Creatinine 1.5 mg/dL (0.7-1.3) Estimated GFR (Cockcroft-Gault) 45.5 Glucose Level 198 mg/dL (70-99) Calcium Level 9.2 mg/dL (8.5-10.1) Lactic Acid Level 1.6 mmol/L (0.4-2.0) Test 02/13/18 04:50 02/13/18 07:37 02/13/18 11:21 02/13/18 13:49 Sodium Level 142 mmol/L (136-145) Potassium Level 4.2 mmol/L (3.5-5.1) Chloride Level 104 mmol/L (98-107) Carbon Dioxide Level 31 mmol/L (21-32) Anion Gap 7 (6-14) Blood Urea Nitrogen 20 mg/dL (8-26) Creatinine 1.4 mg/dL (0.7-1.3) Estimated GFR (Cockcroft-Gault) 49.3 BUN/Creatinine Ratio 14 (6-20) Glucose Level 135 mg/dL (70-99) Calcium Level 9.2 mg/dL (8.5-10.1) Total Bilirubin 0.4 mg/dL (0.2-1.0) Aspartate Amino Transf (AST/SGOT) 15 U/L (15-37) Alanine Aminotransferase (ALT/SGPT) 21 U/L (16-63) Alkaline Phosphatase 51 U/L (46-116) Total Protein 7.4 g/dL (6.4-8.2) Albumin 3.0 g/dL (3.4-5.0) Albumin/Globulin Ratio 0.7 (1.0-1.7) Triglycerides Level 164 mg/dL (0-150) Cholesterol Level 128 mg/dL (0-200) LDL Cholesterol, Calculated 68 mg/dL (0-100) VLDL Cholesterol, Calculated 33 mg/dL (0-40) Non-HDL Cholesterol Calculated 101 mg/dL (0-129) HDL Cholesterol 27 mg/dL (40-60) Cholesterol/HDL Ratio 4.7 Thyroid Stimulating Hormone (TSH) 1.356 uIU/mL (0.358-3.74) Glucose (Fingerstick) 120 mg/dL (70-99) 140 mg/dL (70-99) 120 mg/dL (70-99) Laboratory Tests Test 02/12/18 15:27 02/12/18 15:40 02/12/18 18:05 02/12/18 19:43 Glucose (Fingerstick) 213 mg/dL (70-99) 137 mg/dL (70-99) White Blood Count 9.4 x10^3/uL (4.0-11.0) Red Blood Count 4.75 x10^6/uL (4.30-5.70) Hemoglobin 14.3 g/dL (13.0-17.5) Hematocrit 42.0 % (39.0-53.0) Mean Corpuscular Volume 88 fL (79-100) Mean Corpuscular Hemoglobin 30 pg (25-35) Mean Corpuscular Hemoglobin Concent 34 g/dL (31-37) Red Cell Distribution Width 14.1 % (11.5-14.5) Platelet Count 240 x10^3/uL (140-400) Neutrophils (%) (Auto) 71 % (31-73) Lymphocytes (%) (Auto) 17 % (24-48) Monocytes (%) (Auto) 9 % (0-9) Eosinophils (%) (Auto) 3 % (0-3) Basophils (%) (Auto) 0 % (0-3) Neutrophils # (Auto) 6.7 x10^3uL (1.8-7.7) Lymphocytes # (Auto) 1.6 x10^3/uL (1.0-4.8) Monocytes # (Auto) 0.8 x10^3/uL (0.0-1.1) Eosinophils # (Auto) 0.3 x10^3/uL (0.0-0.7) Basophils # (Auto) 0.0 x10^3/uL (0.0-0.2) Sodium Level 140 mmol/L (136-145) Potassium Level 4.8 mmol/L (3.5-5.1) Chloride Level 103 mmol/L (98-107) Carbon Dioxide Level 27 mmol/L (21-32) Anion Gap 10 (6-14) Blood Urea Nitrogen 22 mg/dL (8-26) Creatinine 1.5 mg/dL (0.7-1.3) Estimated GFR (Cockcroft-Gault) 45.5 Glucose Level 198 mg/dL (70-99) Calcium Level 9.2 mg/dL (8.5-10.1) Lactic Acid Level 1.6 mmol/L (0.4-2.0) Test 02/13/18 04:50 02/13/18 07:37 02/13/18 11:21 02/13/18 13:49 Sodium Level 142 mmol/L (136-145) Potassium Level 4.2 mmol/L (3.5-5.1) Chloride Level 104 mmol/L (98-107) Carbon Dioxide Level 31 mmol/L (21-32) Anion Gap 7 (6-14) Blood Urea Nitrogen 20 mg/dL (8-26) Creatinine 1.4 mg/dL (0.7-1.3) Estimated GFR (Cockcroft-Gault) 49.3 BUN/Creatinine Ratio 14 (6-20) Glucose Level 135 mg/dL (70-99) Calcium Level 9.2 mg/dL (8.5-10.1) Total Bilirubin 0.4 mg/dL (0.2-1.0) Aspartate Amino Transf (AST/SGOT) 15 U/L (15-37) Alanine Aminotransferase (ALT/SGPT) 21 U/L (16-63) Alkaline Phosphatase 51 U/L (46-116) Total Protein 7.4 g/dL (6.4-8.2) Albumin 3.0 g/dL (3.4-5.0) Albumin/Globulin Ratio 0.7 (1.0-1.7) Triglycerides Level 164 mg/dL (0-150) Cholesterol Level 128 mg/dL (0-200) LDL Cholesterol, Calculated 68 mg/dL (0-100) VLDL Cholesterol, Calculated 33 mg/dL (0-40) Non-HDL Cholesterol Calculated 101 mg/dL (0-129) HDL Cholesterol 27 mg/dL (40-60) Cholesterol/HDL Ratio 4.7 Thyroid Stimulating Hormone (TSH) 1.356 uIU/mL (0.358-3.74) Glucose (Fingerstick) 120 mg/dL (70-99) 140 mg/dL (70-99) 120 mg/dL (70-99) Assessment/Plan Assessment/Plan Left 2nd toe DFU with underlying osteomyelitis of the tuft - Vascular with plans for probable amputation following arterial studies - ID managing abx - With adherent scab, vickie HENDERSON - Will follow along pts care for post surgical wound care if indicated EMMA WYATT APRN Feb 13, 2018 14:27
[2018-02-13] MEDS: ASPIRIN ENTERIC COATED 81 MG TABLET.DR. PO SCH (17:20)
[2018-02-13] MEDS: IV 1/2 NORMAL SALINE 1,000 ML IV SCH ×2 (17:21→22:05)
[2018-02-13 20:10] LABS: HEMOGLOBIN A1C 7.3 % (4.8-5.6)
[2018-02-13] MEDS: SIMVASTATIN 20 MG TABLET PO SCH (22:05)
[2018-02-13] MEDS: LACTOBACILLUS RHAMNOSUS GG 1 CAPSULE. PO SCH (22:05)
[2018-02-13] MEDS: INSULIN GLARGINE 300 UNITS/3 ML INSULN.PEN. SQ SCH (22:08)
[2018-02-14 03:57] VITALS: BP_SYST 113; BP_SYST 124; BP_DIAS 43; BP_DIAS 53
[2018-02-14 04:44] LABS: BASO % 0 % (0-3); EOS # 0.4 x10^3/uL (0.0-0.7); EOS % 4 % (0-3); HEMATOCRIT 40.8 % (39.0-53.0); HEMOGLOBIN 14.1 g/dL (13.0-17.5); LYMPH # 1.3 x10^3/uL (1.0-4.8); LYMPH % 17 % (24-48); MEAN CORPUSCULAR HEMOGLOBIN 31 pg (25-35); MEAN CORPUSCULAR HGB CONC 35 g/dL (31-37); MEAN CORPUSCULAR VOLUME 88 fL (79-100); MONO # 0.8 x10^3/uL (0.0-1.1); MONO % 9 % (0-9); NEUT # 5.6 x10^3uL (1.8-7.7); NEUT % 69 % (31-73); PLATELET COUNT 197 x10^3/uL (140-400); RED BLOOD COUNT 4.61 x10^6/uL (4.30-5.70); RED CELL DISTRIBUTION WIDTH 13.9 % (11.5-14.5); WHITE BLOOD COUNT 8.1 x10^3/uL (4.0-11.0)
[2018-02-14 05:01] LABS: CALCIUM 8.8 mg/dL (8.5-10.1); CREATININE 1.3 mg/dL (0.7-1.3); GFR 53.7; POTASSIUM 4.1 mmol/L (3.5-5.1)
[2018-02-14] MEDS: PIPERACILLIN/TAZOBACTAM 4.5 GM in IV NORMAL SALINE 100ML 100 ML IV SCH ×4 (05:42→12:38)
[2018-02-14 07:57] VITALS: BP 136/60
[2018-02-14] MEDS: INSULIN LISPRO 300 UNITS/3 ML INSULN.PEN. SQ SCH ×6 (08:00→17:00)
[2018-02-14] MEDS: CLOPIDOGREL BISULFATE 75 MG TABLET PO SCH (09:01)
[2018-02-14] MEDS: ASPIRIN ENTERIC COATED 81 MG TABLET.DR. PO SCH (09:01)
[2018-02-14] MEDS: FUROSEMIDE 20 MG TABLET PO SCH (09:02)
[2018-02-14] MEDS: METOPROLOL SUCC 24HR ER 25 MG TAB.ER.24H. PO SCH ×2 (09:02→10:07)
--- NOTE | 2018-02-14 09:21 | PDOC ---
PROGRESS NOTES Objective Objective Vital Signs Date Time Temp Pulse Resp B/P (MAP) Pulse Ox O2 Delivery O2 Flow Rate FiO2 02/14/18 07:57 97.2 81 18 136/60 (85) 96 Room Air 97.2 02/13/18 13:01 2.0 Intake and Output 02/14/18 07:00 Intake Total 0 ml Output Total 0 ml Balance 0 ml Intake Oral 0 ml Output Urine Total 0 ml # Voids 5 Physical Exam Abdomen: Soft, No tenderness, No masses Heart: Other (2/6 systolic murmur to apex) Extremities: No clubbing, Other (LLE with 1+ pitting edema. Foot erythemic, more prominent around affect toe, with decreased cap refill.) General: Alert, Oriented X3, Cooperative, No acute distress HEENT: Atraumatic, EOMI Lungs: Clear to auscultation, Normal air movement MUSCULOSKELETAL: Osteoarthritic changes both hands Neuro: Normal gait, Normal speech Psych/Mental Status: Mental status NL, Mood NL Skin: Other (Left 2nd toe with intact scab to distal aspect. No active drainage. No odor. Surrounding tissue erythemic and warm. ) Comment Review of Relevant I have reviewed the following items ye (where applicable) has been applied. Labs Laboratory Tests Test 02/13/18 11:21 02/13/18 13:49 02/13/18 16:59 02/13/18 21:28 Glucose (Fingerstick) 140 mg/dL (70-99) 120 mg/dL (70-99) 253 mg/dL (70-99) 237 mg/dL (70-99) Test 02/14/18 03:20 02/14/18 03:25 02/14/18 07:23 Sodium Level 139 mmol/L (136-145) Potassium Level 4.1 mmol/L (3.5-5.1) Chloride Level 103 mmol/L (98-107) Carbon Dioxide Level 27 mmol/L (21-32) Anion Gap 9 (6-14) Blood Urea Nitrogen 13 mg/dL (8-26) Creatinine 1.3 mg/dL (0.7-1.3) Estimated GFR (Cockcroft-Gault) 53.7 Glucose Level 137 mg/dL (70-99) Calcium Level 8.8 mg/dL (8.5-10.1) White Blood Count 8.1 x10^3/uL (4.0-11.0) Red Blood Count 4.61 x10^6/uL (4.30-5.70) Hemoglobin 14.1 g/dL (13.0-17.5) Hematocrit 40.8 % (39.0-53.0) Mean Corpuscular Volume 88 fL (79-100) Mean Corpuscular Hemoglobin 31 pg (25-35) Mean Corpuscular Hemoglobin Concent 35 g/dL (31-37) Red Cell Distribution Width 13.9 % (11.5-14.5) Platelet Count 197 x10^3/uL (140-400) Neutrophils (%) (Auto) 69 % (31-73) Lymphocytes (%) (Auto) 17 % (24-48) Monocytes (%) (Auto) 9 % (0-9) Eosinophils (%) (Auto) 4 % (0-3) Basophils (%) (Auto) 0 % (0-3) Neutrophils # (Auto) 5.6 x10^3uL (1.8-7.7) Lymphocytes # (Auto) 1.3 x10^3/uL (1.0-4.8) Monocytes # (Auto) 0.8 x10^3/uL (0.0-1.1) Eosinophils # (Auto) 0.4 x10^3/uL (0.0-0.7) Basophils # (Auto) 0.0 x10^3/uL (0.0-0.2) Glucose (Fingerstick) 131 mg/dL (70-99) Microbiology 02/12/18 Blood Culture - Preliminary, Resulted NO GROWTH AFTER 1 DAY Medications Current Medications Acetaminophen (Tylenol) 650 mg PRN Q6HRS PRN PO MILD PAIN; Start 02/13/18 at 14:15 Aspirin (Ecotrin) 81 mg DAILYWBKFT PO Last administered on 02/14/18at 09:01; Start 02/13/18 at 10:00 Fentanyl Citrate (Fentanyl 2ml Vial) 100 mcg 1X ONCE IV Last administered on 02/13/18at 11:30; Start 02/13/18 at 11:30; Stop 02/13/18 at 11:31; Status DC Fentanyl Citrate (Fentanyl 2ml Vial) 100 mcg STK-MED ONCE .ROUTE ; Start at 11:19; Stop 02/13/18 at 11:20; Status DC Heparin Sodium/ Sodium Chloride 500 ml @ As Directed STK-MED ONCE .ROUTE ; Start 02/13/18 at 11:16; Stop 02/13/18 at 11:17; Status DC Heparin Sodium/ Sodium Chloride (HEPARIN for ARTERIAL LINE FLUSH) 1,000 unit 1X ONCE IART Last administered on 02/13/18at 11:30; Start 02/13/18 at 11:30; Stop 02/13/18 at 11:31; Status DC Hydralazine HCl (Apresoline) 50 mg PRN Q6HRS PRN PO ELEVATED BP, SEE COMMENTS; Start 02/13/18 at 11:15 Iodixanol (Visipaque 320) 100 ml 1X ONCE IART Last administered on 02/13/18at 11:30; Start 02/13/18 at 11:30; Stop 02/13/18 at 11:31; Status DC Iodixanol (Visipaque 320) 100 ml STK-MED ONCE .ROUTE ; Start 02/13/18 at 11:16 ; Stop 02/13/18 at 11:17; Status DC Lactobacillus Rhamnosus (Culturelle) 1 cap BID PO Last administered on at 22:05; Start 02/13/18 at 21:00 Lidocaine HCl 20 ml 1X ONCE IJ Last administered on 02/13/18at 11:30; Start 02/13/18 at 11:30; Stop 02/13/18 at 11:31; Status DC Lidocaine HCl (Lidocaine 1% 50ml Vial) 50 ml STK-MED ONCE .ROUTE ; Start at 11:16; Stop 02/13/18 at 11:17; Status DC Metoprolol Succinate (Toprol Xl) 25 mg DAILY PO ; Start 02/13/18 at 11:15 Midazolam HCl (Versed) 2 mg 1X ONCE IV Last administered on 02/13/18at 11:30; Start 02/13/18 at 11:30; Stop 02/13/18 at 11:31; Status DC Midazolam HCl (Versed) 2 mg STK-MED ONCE .ROUTE ; Start 02/13/18 at 11:19; Stop 02/13/18 at 11:20; Status DC Midazolam HCl (Versed) 2 mg STK-MED ONCE .ROUTE ; Start 02/13/18 at 11:53; Stop 02/13/18 at 11:54; Status DC Nitroglycerin (Nitrostat) 0.4 mg PRN Q5MIN PRN SL CHEST PAIN; Start 02/13/18 at 14:15 Sodium Chloride 1,000 ml @ 100 mls/hr Q10H IV ; Start 02/13/18 at 11:00; Stop 02/14/18 at 00:03; Status DC Sodium Chloride 1,000 ml @ 100 mls/hr Q10H IV Last administered on 02/13/18at 22:05; Start 02/13/18 at 14:01 Vitals/I & O Vital Sign - Last 24 Hours 02/13/18 02/13/18 02/13/18 02/13/18 11:00 11:30 13:01 13:18 Temp 98.3 98.3 98.3 98.3 Pulse 77 78 84 Resp 18 13 14 18 B/P (MAP) 123/74 (90) 136/79 (98) Pulse Ox 93 100 92 O2 Delivery Room Air Nasal Cannula Room Air O2 Flow Rate 2.0 02/13/18 02/13/18 02/13/18 02/13/18 13:30 13:45 14:00 14:15 Temp 98.3 98.3 98.3 98.3 98.3 98.3 98.3 98.3 Pulse 82 79 87 89 Resp 18 18 18 18 B/P (MAP) 126/76 (93) 125/75 (92) 130/77 (94) 131/81 (98) Pulse Ox 94 95 96 O2 Delivery Room Air Room Air Room Air Room Air 02/13/18 02/13/18 02/13/18 02/13/18 14:45 15:15 19:25 19:30 Temp 98.3 98.3 98.1 98.3 98.3 98.1 Pulse 91 94 65 Resp 18 18 18 B/P (MAP) 151/79 (103) 130/87 (101) 162/82 (108) Pulse Ox 92 92 93 O2 Delivery Room Air Room Air Room Air Room Air 02/13/18 02/14/18 02/14/18 23:04 03:57 07:57 Temp 97.7 97.9 97.2 97.7 97.9 97.2 Pulse 107 93 81 Resp 18 18 18 B/P (MAP) 154/72 (99) 124/53 (76) 136/60 (85) Pulse Ox 93 96 96 O2 Delivery Room Air Room Air Room Air Intake and Output 02/13/18 02/13/18 02/14/18 15:00 23:00 07:00 Intake Total 0 ml Output Total 0 ml Balance 0 ml 0 ml MOSHE SMITH MD Feb 14, 2018 09:21
--- NOTE | 2018-02-14 09:37 | PDOC ---
Infectious Disease Note Subjective Subjective feeling good ROS ROS no n/v/d/sob Vital Sign Vital Signs Vital Signs Date Time Temp Pulse Resp B/P (MAP) Pulse Ox O2 Delivery O2 Flow Rate FiO2 02/14/18 07:57 97.2 81 18 136/60 (85) 96 Room Air 97.2 02/13/18 13:01 2.0 Physical Exam PHYSICAL EXAM GENERAL: Alert and oriented gentleman, not in distress. VITAL SIGNS: Stable, afebrile. HEENT: NAD. NECK: Supple, no JVP, no lymphadenopathy. LUNGS: Clear. HEART: S1, S2 regular. ABDOMEN: Benign. EXTREMITIES: No edema or cyanosis. SKIN: Unremarkable. The patient is neurologically intact. In particular, left foot the second toe has black discoloration on the distal tip. There is no open area, there is no drainage. His dorsalis pedis is very weakly palpable on the left foot with a good pulse on the right foot. There is no other open wound or discoloration seen. NEUROLOGIC: The patient is neurologically intact. Labs Lab Laboratory Tests Test 02/13/18 11:21 02/13/18 13:49 02/13/18 16:59 02/13/18 21:28 Glucose (Fingerstick) 140 mg/dL (70-99) 120 mg/dL (70-99) 253 mg/dL (70-99) 237 mg/dL (70-99) Test 02/14/18 03:20 02/14/18 03:25 02/14/18 07:23 Sodium Level 139 mmol/L (136-145) Potassium Level 4.1 mmol/L (3.5-5.1) Chloride Level 103 mmol/L (98-107) Carbon Dioxide Level 27 mmol/L (21-32) Anion Gap 9 (6-14) Blood Urea Nitrogen 13 mg/dL (8-26) Creatinine 1.3 mg/dL (0.7-1.3) Estimated GFR (Cockcroft-Gault) 53.7 Glucose Level 137 mg/dL (70-99) Calcium Level 8.8 mg/dL (8.5-10.1) White Blood Count 8.1 x10^3/uL (4.0-11.0) Red Blood Count 4.61 x10^6/uL (4.30-5.70) Hemoglobin 14.1 g/dL (13.0-17.5) Hematocrit 40.8 % (39.0-53.0) Mean Corpuscular Volume 88 fL (79-100) Mean Corpuscular Hemoglobin 31 pg (25-35) Mean Corpuscular Hemoglobin Concent 35 g/dL (31-37) Red Cell Distribution Width 13.9 % (11.5-14.5) Platelet Count 197 x10^3/uL (140-400) Neutrophils (%) (Auto) 69 % (31-73) Lymphocytes (%) (Auto) 17 % (24-48) Monocytes (%) (Auto) 9 % (0-9) Eosinophils (%) (Auto) 4 % (0-3) Basophils (%) (Auto) 0 % (0-3) Neutrophils # (Auto) 5.6 x10^3uL (1.8-7.7) Lymphocytes # (Auto) 1.3 x10^3/uL (1.0-4.8) Monocytes # (Auto) 0.8 x10^3/uL (0.0-1.1) Eosinophils # (Auto) 0.4 x10^3/uL (0.0-0.7) Basophils # (Auto) 0.0 x10^3/uL (0.0-0.2) Glucose (Fingerstick) 131 mg/dL (70-99) Micro Microbiology 02/12/18 Blood Culture - Preliminary, Resulted NO GROWTH AFTER 1 DAY Objective Assessment Left 2nd toe distal phalanx osteomyelitis PAD CAD HTN DM Plan Plan of Care angiogram pending may need partial amputation of 2nd toe cont antibiotics for now supportive care MADONNA IBARRA MD Feb 14, 2018 09:37
[2018-02-14] MEDS: LACTOBACILLUS RHAMNOSUS GG 1 CAPSULE. PO SCH (10:07)
--- NOTE | 2018-02-14 10:26 | PDOC ---
PROGRESS NOTES Subjective Subjective feels better today Objective Objective Vital Signs Date Time Temp Pulse Resp B/P (MAP) Pulse Ox O2 Delivery O2 Flow Rate FiO2 02/14/18 10:07 81 136/60 02/14/18 07:57 97.2 18 96 Room Air 97.2 02/13/18 13:01 2.0 Intake and Output 02/14/18 07:00 Intake Total 0 ml Output Total 0 ml Balance 0 ml Intake Oral 0 ml Output Urine Total 0 ml # Voids 5 Physical Exam Abdomen: Soft, No tenderness, No masses Heart: Other (2/6 systolic murmur to apex) Extremities: No clubbing, Other (LLE with 1+ pitting edema. Foot erythemic, more prominent around affect toe, with decreased cap refill.) General: Alert, Oriented X3, Cooperative, No acute distress HEENT: Atraumatic, EOMI Lungs: Clear to auscultation, Normal air movement MUSCULOSKELETAL: Osteoarthritic changes both hands Neuro: Normal gait, Normal speech Psych/Mental Status: Mental status NL, Mood NL Skin: Other (Left 2nd toe with intact scab to distal aspect. No active drainage. No odor. Surrounding tissue erythemic and warm. ) Assessment Assessment FINAL IMPRESSION: 1. Ischemia of the left foot. 2. Peripheral vascular disease, history of previous bypass to both right and left lower extremities and he also had history of stents placed and angioplasties, left lower leg. 3. Coronary artery disease, history of angioplasty, stent in the heart. 4. Chronic systolic heart failure. Ejection fraction was 30% two years ago, improved to 45%, now with medications. 5. Hypertension. 6. Hyperlipidemia. 7. Diabetes. 8. Previous left fifth toe amputation. 9. Ex-smoker. 10.Osteo lt 2 nd toe. PLAN: Arteriogram yesterday , showed blocked grafts. spoke with vascular and cardiology. redo leg bypass vs stenting . needs lt 2nd toe distal amputation. IV antibiotics for now. cr 1.3 good. At this time, admit to the hospital. Vascular was consulted. We will also consult Cardiology, probably he needs an arteriogram and also hydrate the patient before arteriogram and further recommendations to follow once the arteriogram is available. Comment Review of Relevant I have reviewed the following items ye (where applicable) has been applied. Labs Laboratory Tests Test 02/13/18 11:21 02/13/18 13:49 02/13/18 16:59 02/13/18 21:28 Glucose (Fingerstick) 140 mg/dL (70-99) 120 mg/dL (70-99) 253 mg/dL (70-99) 237 mg/dL (70-99) Test 02/14/18 03:20 02/14/18 03:25 02/14/18 07:23 Sodium Level 139 mmol/L (136-145) Potassium Level 4.1 mmol/L (3.5-5.1) Chloride Level 103 mmol/L (98-107) Carbon Dioxide Level 27 mmol/L (21-32) Anion Gap 9 (6-14) Blood Urea Nitrogen 13 mg/dL (8-26) Creatinine 1.3 mg/dL (0.7-1.3) Estimated GFR (Cockcroft-Gault) 53.7 Glucose Level 137 mg/dL (70-99) Calcium Level 8.8 mg/dL (8.5-10.1) White Blood Count 8.1 x10^3/uL (4.0-11.0) Red Blood Count 4.61 x10^6/uL (4.30-5.70) Hemoglobin 14.1 g/dL (13.0-17.5) Hematocrit 40.8 % (39.0-53.0) Mean Corpuscular Volume 88 fL (79-100) Mean Corpuscular Hemoglobin 31 pg (25-35) Mean Corpuscular Hemoglobin Concent 35 g/dL (31-37) Red Cell Distribution Width 13.9 % (11.5-14.5) Platelet Count 197 x10^3/uL (140-400) Neutrophils (%) (Auto) 69 % (31-73) Lymphocytes (%) (Auto) 17 % (24-48) Monocytes (%) (Auto) 9 % (0-9) Eosinophils (%) (Auto) 4 % (0-3) Basophils (%) (Auto) 0 % (0-3) Neutrophils # (Auto) 5.6 x10^3uL (1.8-7.7) Lymphocytes # (Auto) 1.3 x10^3/uL (1.0-4.8) Monocytes # (Auto) 0.8 x10^3/uL (0.0-1.1) Eosinophils # (Auto) 0.4 x10^3/uL (0.0-0.7) Basophils # (Auto) 0.0 x10^3/uL (0.0-0.2) Glucose (Fingerstick) 131 mg/dL (70-99) Microbiology 02/12/18 Blood Culture - Preliminary, Resulted NO GROWTH AFTER 1 DAY Medications Current Medications Acetaminophen (Tylenol) 650 mg PRN Q6HRS PRN PO MILD PAIN; Start 02/13/18 at 14:15 Fentanyl Citrate (Fentanyl 2ml Vial) 100 mcg 1X ONCE IV Last administered on 02/13/18at 11:30; Start 02/13/18 at 11:30; Stop 02/13/18 at 11:31; Status DC Fentanyl Citrate (Fentanyl 2ml Vial) 100 mcg STK-MED ONCE .ROUTE ; Start at 11:19; Stop 02/13/18 at 11:20; Status DC Heparin Sodium/ Sodium Chloride 500 ml @ As Directed STK-MED ONCE .ROUTE ; Start 02/13/18 at 11:16; Stop 02/13/18 at 11:17; Status DC Heparin Sodium/ Sodium Chloride (HEPARIN for ARTERIAL LINE FLUSH) 1,000 unit 1X ONCE IART Last administered on 02/13/18at 11:30; Start 02/13/18 at 11:30; Stop 02/13/18 at 11:31; Status DC Hydralazine HCl (Apresoline) 50 mg PRN Q6HRS PRN PO ELEVATED BP, SEE COMMENTS; Start 02/13/18 at 11:15 Iodixanol (Visipaque 320) 100 ml 1X ONCE IART Last administered on 02/13/18at 11:30; Start 02/13/18 at 11:30; Stop 02/13/18 at 11:31; Status DC Iodixanol (Visipaque 320) 100 ml STK-MED ONCE .ROUTE ; Start 02/13/18 at 11:16 ; Stop 02/13/18 at 11:17; Status DC Lactobacillus Rhamnosus (Culturelle) 1 cap BID PO Last administered on at 10:07; Start 02/13/18 at 21:00 Lidocaine HCl 20 ml 1X ONCE IJ Last administered on 02/13/18at 11:30; Start 02/13/18 at 11:30; Stop 02/13/18 at 11:31; Status DC Lidocaine HCl (Lidocaine 1% 50ml Vial) 50 ml STK-MED ONCE .ROUTE ; Start at 11:16; Stop 02/13/18 at 11:17; Status DC Lisinopril (Prinivil) 20 mg DAILY PO ; Start 02/14/18 at 10:30 Metoprolol Succinate (Toprol Xl) 25 mg DAILY PO Last administered on at 10:07; Start 02/13/18 at 11:15 Midazolam HCl (Versed) 2 mg 1X ONCE IV Last administered on 02/13/18at 11:30; Start 02/13/18 at 11:30; Stop 02/13/18 at 11:31; Status DC Midazolam HCl (Versed) 2 mg STK-MED ONCE .ROUTE ; Start 02/13/18 at 11:19; Stop 02/13/18 at 11:20; Status DC Midazolam HCl (Versed) 2 mg STK-MED ONCE .ROUTE ; Start 02/13/18 at 11:53; Stop 02/13/18 at 11:54; Status DC Nitroglycerin (Nitrostat) 0.4 mg PRN Q5MIN PRN SL CHEST PAIN; Start 02/13/18 at 14:15 Sodium Chloride 1,000 ml @ 100 mls/hr Q10H IV ; Start 02/13/18 at 11:00; Stop 02/14/18 at 00:03; Status DC Sodium Chloride 1,000 ml @ 100 mls/hr Q10H IV Last administered on 02/13/18at 22:05; Start 02/13/18 at 14:01; Stop 02/14/18 at 09:56; Status DC Vitals/I & O Vital Sign - Last 24 Hours 02/13/18 02/13/18 02/13/18 02/13/18 11:00 11:30 13:01 13:18 Temp 98.3 98.3 98.3 98.3 Pulse 77 78 84 Resp 18 13 14 18 B/P (MAP) 123/74 (90) 136/79 (98) Pulse Ox 93 100 92 O2 Delivery Room Air Nasal Cannula Room Air O2 Flow Rate 2.0 02/13/18 02/13/18 02/13/18 02/13/18 13:30 13:45 14:00 14:15 Temp 98.3 98.3 98.3 98.3 98.3 98.3 98.3 98.3 Pulse 82 79 87 89 Resp 18 18 B/P (MAP) 126/76 (93) 125/75 (92) 130/77 (94) 131/81 (98) Pulse Ox 94 95 96 O2 Delivery Room Air Room Air Room Air Room Air 02/13/18 02/13/18 02/13/18 02/13/18 14:45 15:15 19:25 19:30 Temp 98.3 98.3 98.1 98.3 98.3 98.1 Pulse 91 94 65 Resp 18 18 B/P (MAP) 151/79 (103) 130/87 (101) 162/82 (108) Pulse Ox 92 92 93 O2 Delivery Room Air Room Air Room Air Room Air 02/13/18 02/14/18 02/14/18 02/14/18 23:04 03:57 07:57 10:07 Temp 97.7 97.9 97.2 97.7 97.9 97.2 Pulse 107 93 81 81 Resp 18 B/P (MAP) 154/72 (99) 124/53 (76) 136/60 (85) 136/60 Pulse Ox 93 96 96 O2 Delivery Room Air Room Air Room Air Intake and Output 02/13/18 02/13/18 02/14/18 15:00 23:00 07:00 Intake Total 0 ml Output Total 0 ml Balance 0 ml 0 ml MOSHE SMITH MD Feb 14, 2018 10:26
[2018-02-14] MEDS ORDERED: LISINOPRIL 20 MG TABLET PO SCH (10:30)
[2018-02-14 11:00] VITALS: BP 118/65
--- NOTE | 2018-02-14 13:05 | PDOC ---
PROGRESS NOTES Subjective Subjective Pt here with left toe infection and pain. He has been evaluated by us for peripheral arterial disease, he has an extensive history with us. Got arteriogram yesterday. Has wound/eschar to left second toe. Currently he does not have any pain, however in the past couple days he reports dull pain to his left second toe worsened with movement or to touch. Objective Objective Vital Signs Date Time Temp Pulse Resp B/P (MAP) Pulse Ox O2 Delivery O2 Flow Rate FiO2 02/14/18 11:00 97.6 84 18 118/65 (82) 93 Room Air 97.6 02/13/18 13:01 2.0 Intake and Output 02/14/18 07:00 Intake Total 0 ml Output Total 0 ml Balance 0 ml Intake Oral 0 ml Output Urine Total 0 ml # Voids 5 Physical Exam Physical Exam Awake, alert, in no apparent distress. Respirations non labored. Palpable right DP pulse, nonpalpable left DP or PT Left second toe with eschar to tip, red discoloration to second toe. Skin dry Plan Plan of Care Pt with extensive history of peripheral arterial intervention. Arteriogram yesterday showed 100% in-stent occlusion involving the entire course of the left superficial femoral artery and also the left popliteal artery with reconstitution of below the knee vessels as described above via collaterals from the profunda femoris artery. Dr. Lewis reviewed results, Pt will need left leg bypass for revascularization. I will get vein mapping. Surgery to be scheduled. It is likely this will not be scheduled until next week at the earliest, if this is the case the patient is ok to go home from vascular standpoint once medically stable and come back for procedure. Dr. Pizarro will be doing the procedure and will decide on intervention for the left 2nd toe. The patients questions were all answered to satisfaction. Comment Review of Relevant I have reviewed the following items ye (where applicable) has been applied. Labs Laboratory Tests Test 02/12/18 15:27 02/12/18 15:40 02/12/18 18:05 02/12/18 19:43 Glucose (Fingerstick) 213 mg/dL (70-99) 137 mg/dL (70-99) White Blood Count 9.4 x10^3/uL (4.0-11.0) Red Blood Count 4.75 x10^6/uL (4.30-5.70) Hemoglobin 14.3 g/dL (13.0-17.5) Hematocrit 42.0 % (39.0-53.0) Mean Corpuscular Volume 88 fL (79-100) Mean Corpuscular Hemoglobin 30 pg (25-35) Mean Corpuscular Hemoglobin Concent 34 g/dL (31-37) Red Cell Distribution Width 14.1 % (11.5-14.5) Platelet Count 240 x10^3/uL (140-400) Neutrophils (%) (Auto) 71 % (31-73) Lymphocytes (%) (Auto) 17 % (24-48) Monocytes (%) (Auto) 9 % (0-9) Eosinophils (%) (Auto) 3 % (0-3) Basophils (%) (Auto) 0 % (0-3) Neutrophils # (Auto) 6.7 x10^3uL (1.8-7.7) Lymphocytes # (Auto) 1.6 x10^3/uL (1.0-4.8) Monocytes # (Auto) 0.8 x10^3/uL (0.0-1.1) Eosinophils # (Auto) 0.3 x10^3/uL (0.0-0.7) Basophils # (Auto) 0.0 x10^3/uL (0.0-0.2) Sodium Level 140 mmol/L (136-145) Potassium Level 4.8 mmol/L (3.5-5.1) Chloride Level 103 mmol/L (98-107) Carbon Dioxide Level 27 mmol/L (21-32) Anion Gap 10 (6-14) Blood Urea Nitrogen 22 mg/dL (8-26) Creatinine 1.5 mg/dL (0.7-1.3) Estimated GFR (Cockcroft-Gault) 45.5 Glucose Level 198 mg/dL (70-99) Calcium Level 9.2 mg/dL (8.5-10.1) Lactic Acid Level 1.6 mmol/L (0.4-2.0) Test 02/13/18 04:50 02/13/18 07:37 02/13/18 11:21 02/13/18 13:49 Sodium Level 142 mmol/L (136-145) Potassium Level 4.2 mmol/L (3.5-5.1) Chloride Level 104 mmol/L (98-107) Carbon Dioxide Level 31 mmol/L (21-32) Anion Gap 7 (6-14) Blood Urea Nitrogen 20 mg/dL (8-26) Creatinine 1.4 mg/dL (0.7-1.3) Estimated GFR (Cockcroft-Gault) 49.3 BUN/Creatinine Ratio 14 (6-20) Glucose Level 135 mg/dL (70-99) Hemoglobin A1c 7.3 % (4.8-5.6) Calcium Level 9.2 mg/dL (8.5-10.1) Total Bilirubin 0.4 mg/dL (0.2-1.0) Aspartate Amino Transf (AST/SGOT) 15 U/L (15-37) Alanine Aminotransferase (ALT/SGPT) 21 U/L (16-63) Alkaline Phosphatase 51 U/L (46-116) Total Protein 7.4 g/dL (6.4-8.2) Albumin 3.0 g/dL (3.4-5.0) Albumin/Globulin Ratio 0.7 (1.0-1.7) Triglycerides Level 164 mg/dL (0-150) Cholesterol Level 128 mg/dL (0-200) LDL Cholesterol, Calculated 68 mg/dL (0-100) VLDL Cholesterol, Calculated 33 mg/dL (0-40) Non-HDL Cholesterol Calculated 101 mg/dL (0-129) HDL Cholesterol 27 mg/dL (40-60) Cholesterol/HDL Ratio 4.7 Thyroid Stimulating Hormone (TSH) 1.356 uIU/mL (0.358-3.74) Glucose (Fingerstick) 120 mg/dL (70-99) 140 mg/dL (70-99) 120 mg/dL (70-99) Test 02/13/18 16:59 02/13/18 21:28 02/14/18 03:20 02/14/18 03:25 Glucose (Fingerstick) 253 mg/dL (70-99) 237 mg/dL (70-99) Sodium Level 139 mmol/L (136-145) Potassium Level 4.1 mmol/L (3.5-5.1) Chloride Level 103 mmol/L (98-107) Carbon Dioxide Level 27 mmol/L (21-32) Anion Gap 9 (6-14) Blood Urea Nitrogen 13 mg/dL (8-26) Creatinine 1.3 mg/dL (0.7-1.3) Estimated GFR (Cockcroft-Gault) 53.7 Glucose Level 137 mg/dL (70-99) Calcium Level 8.8 mg/dL (8.5-10.1) White Blood Count 8.1 x10^3/uL (4.0-11.0) Red Blood Count 4.61 x10^6/uL (4.30-5.70) Hemoglobin 14.1 g/dL (13.0-17.5) Hematocrit 40.8 % (39.0-53.0) Mean Corpuscular Volume 88 fL (79-100) Mean Corpuscular Hemoglobin 31 pg (25-35) Mean Corpuscular Hemoglobin Concent 35 g/dL (31-37) Red Cell Distribution Width 13.9 % (11.5-14.5) Platelet Count 197 x10^3/uL (140-400) Neutrophils (%) (Auto) 69 % (31-73) Lymphocytes (%) (Auto) 17 % (24-48) Monocytes (%) (Auto) 9 % (0-9) Eosinophils (%) (Auto) 4 % (0-3) Basophils (%) (Auto) 0 % (0-3) Neutrophils # (Auto) 5.6 x10^3uL (1.8-7.7) Lymphocytes # (Auto) 1.3 x10^3/uL (1.0-4.8) Monocytes # (Auto) 0.8 x10^3/uL (0.0-1.1) Eosinophils # (Auto) 0.4 x10^3/uL (0.0-0.7) Basophils # (Auto) 0.0 x10^3/uL (0.0-0.2) Test 02/14/18 07:23 02/14/18 11:34 Glucose (Fingerstick) 131 mg/dL (70-99) 120 mg/dL (70-99) Laboratory Tests Test 02/13/18 13:49 02/13/18 16:59 02/13/18 21:28 02/14/18 03:20 Glucose (Fingerstick) 120 mg/dL (70-99) 253 mg/dL (70-99) 237 mg/dL (70-99) Sodium Level 139 mmol/L (136-145) Potassium Level 4.1 mmol/L (3.5-5.1) Chloride Level 103 mmol/L (98-107) Carbon Dioxide Level 27 mmol/L (21-32) Anion Gap 9 (6-14) Blood Urea Nitrogen 13 mg/dL (8-26) Creatinine 1.3 mg/dL (0.7-1.3) Estimated GFR (Cockcroft-Gault) 53.7 Glucose Level 137 mg/dL (70-99) Calcium Level 8.8 mg/dL (8.5-10.1) Test 02/14/18 03:25 02/14/18 07:23 02/14/18 11:34 White Blood Count 8.1 x10^3/uL (4.0-11.0) Red Blood Count 4.61 x10^6/uL (4.30-5.70) Hemoglobin 14.1 g/dL (13.0-17.5) Hematocrit 40.8 % (39.0-53.0) Mean Corpuscular Volume 88 fL (79-100) Mean Corpuscular Hemoglobin 31 pg (25-35) Mean Corpuscular Hemoglobin Concent 35 g/dL (31-37) Red Cell Distribution Width 13.9 % (11.5-14.5) Platelet Count 197 x10^3/uL (140-400) Neutrophils (%) (Auto) 69 % (31-73) Lymphocytes (%) (Auto) 17 % (24-48) Monocytes (%) (Auto) 9 % (0-9) Eosinophils (%) (Auto) 4 % (0-3) Basophils (%) (Auto) 0 % (0-3) Neutrophils # (Auto) 5.6 x10^3uL (1.8-7.7) Lymphocytes # (Auto) 1.3 x10^3/uL (1.0-4.8) Monocytes # (Auto) 0.8 x10^3/uL (0.0-1.1) Eosinophils # (Auto) 0.4 x10^3/uL (0.0-0.7) Basophils # (Auto) 0.0 x10^3/uL (0.0-0.2) Glucose (Fingerstick) 131 mg/dL (70-99) 120 mg/dL (70-99) Microbiology 02/12/18 Blood Culture - Preliminary, Resulted NO GROWTH AFTER 1 DAY Medications Current Medications Piperacillin Sod/ Tazobactam Sod (Zosyn Per Pharmacy) 1 each PRN DAILY PRN MC SEE COMMENTS; Start 02/12/18 at 18:30 Ondansetron HCl (Zofran) 4 mg PRN Q8HRS PRN IV NAUSEA/VOMITING; Start at 18:30; Stop 02/13/18 at 18:29; Status DC Acetaminophen (Tylenol) 650 mg PRN Q4HRS PRN PO FEVER; Start 02/12/18 at 18:30 ; Stop 02/13/18 at 17:06; Status DC Piperacillin Sod/ Tazobactam Sod 4.5 gm/Sodium Chloride 100 ml @ 200 mls/hr Q6HRS IV Last administered on 02/14/18at 12:38; Start 02/12/18 at 18:30 Clopidogrel Bisulfate (Plavix) 75 mg DAILY PO Last administered on 02/14/18at 09:01; Start 02/13/18 at 09:00 Furosemide (Lasix) 20 mg DAILY PO Last administered on 02/14/18at 09:02; Start 02/13/18 at 09:00 Lisinopril (Prinivil) 40 mg DAILY PO ; Start 02/13/18 at 09:00; Stop 02/13/18 at 11:17; Status DC Insulin Human Lispro (HumaLOG) 30 units TIDWMEALS SQ Last administered on 02/14at 12:46; Start 02/13/18 at 08:00 Insulin Glargine (Lantus) 50 units QHS SQ Last administered on 02/13/18at 22:08 ; Start 02/12/18 at 22:00 Metformin HCl (Glucophage) 1,000 mg BIDWMEALS PO ; Start 02/13/18 at 08:00; Stop 02/13/18 at 11:17; Status DC Simvastatin (Zocor) 20 mg HS PO Last administered on 02/13/18at 22:05; Start 02/12/18 at 21:00 Insulin Human Lispro (HumaLOG) 0-5 UNITS TIDWMEALS SQ Last administered on at 17:31; Start 02/13/18 at 08:00 Dextrose (Dextrose 50%-Water Syringe) 12.5 gm PRN Q15MIN PRN IV SEE COMMENTS; Start 02/12/18 at 21:30 Sodium Chloride 1,000 ml @ 100 mls/hr Q10H IV ; Start 02/13/18 at 11:00; Stop 02/14/18 at 00:03; Status DC Aspirin (Ecotrin) 81 mg DAILYWBKFT PO Last administered on 02/14/18at 09:01; Start 02/13/18 at 10:00 Metoprolol Succinate (Toprol Xl) 25 mg DAILY PO Last administered on at 10:07; Start 02/13/18 at 11:15 Hydralazine HCl (Apresoline) 50 mg PRN Q6HRS PRN PO ELEVATED BP, SEE COMMENTS; Start 02/13/18 at 11:15 Iodixanol (Visipaque 320) 100 ml STK-MED ONCE .ROUTE ; Start 02/13/18 at 11:16 ; Stop 02/13/18 at 11:17; Status DC Lidocaine HCl (Lidocaine 1% 50ml Vial) 50 ml STK-MED ONCE .ROUTE ; Start at 11:16; Stop 02/13/18 at 11:17; Status DC Heparin Sodium/ Sodium Chloride 500 ml @ As Directed STK-MED ONCE .ROUTE ; Start 02/13/18 at 11:16; Stop 02/13/18 at 11:17; Status DC Fentanyl Citrate (Fentanyl 2ml Vial) 100 mcg STK-MED ONCE .ROUTE ; Start at 11:19; Stop 02/13/18 at 11:20; Status DC Midazolam HCl (Versed) 2 mg STK-MED ONCE .ROUTE ; Start 02/13/18 at 11:19; Stop 02/13/18 at 11:20; Status DC Heparin Sodium/ Sodium Chloride (HEPARIN for ARTERIAL LINE FLUSH) 1,000 unit 1X ONCE IART Last administered on 02/13/18at 11:30; Start 02/13/18 at 11:30; Stop 02/13/18 at 11:31; Status DC Midazolam HCl (Versed) 2 mg 1X ONCE IV Last administered on 02/13/18at 11:30; Start 02/13/18 at 11:30; Stop 02/13/18 at 11:31; Status DC Fentanyl Citrate (Fentanyl 2ml Vial) 100 mcg 1X ONCE IV Last administered on 02/13/18at 11:30; Start 02/13/18 at 11:30; Stop 02/13/18 at 11:31; Status DC Iodixanol (Visipaque 320) 100 ml 1X ONCE IART Last administered on 02/13/18at 11:30; Start 02/13/18 at 11:30; Stop 02/13/18 at 11:31; Status DC Lidocaine HCl 20 ml 1X ONCE IJ Last administered on 02/13/18at 11:30; Start 02/13/18 at 11:30; Stop 02/13/18 at 11:31; Status DC Midazolam HCl (Versed) 2 mg STK-MED ONCE .ROUTE ; Start 02/13/18 at 11:53; Stop 02/13/18 at 11:54; Status DC Sodium Chloride 1,000 ml @ 100 mls/hr Q10H IV Last administered on 02/13/18at 22:05; Start 02/13/18 at 14:01; Stop 02/14/18 at 09:56; Status DC Acetaminophen (Tylenol) 650 mg PRN Q6HRS PRN PO MILD PAIN; Start 02/13/18 at 14:15 Nitroglycerin (Nitrostat) 0.4 mg PRN Q5MIN PRN SL CHEST PAIN; Start 02/13/18 at 14:15 Lactobacillus Rhamnosus (Culturelle) 1 cap BID PO Last administered on at 10:07; Start 02/13/18 at 21:00 Lisinopril (Prinivil) 20 mg DAILY PO ; Start 02/14/18 at 10:30 Active Scripts Active Reported Lasix (Furosemide) 20 Mg Tablet 1 Tab PO DAILY Levemir (Insulin Detemir) 100 Unit/1 Ml Vial 50 Unit SQ HS Plavix (Clopidogrel Bisulfate) 75 Mg Tablet 1 Tab PO DAILY Metformin Hcl 500 Mg Tablet 2 Tab PO BID Hold for 48 hours, next dose evening 06/08/17 Lisinopril 40 Mg Tablet 1 Tab PO DAILY Simvastatin 20 Mg Tablet 1 Tab PO QHS Novolog (Insulin Aspart) 100 Unit/1 Ml Cartridge 30 Unit SQ TIDAC Vitals/I & O Vital Sign - Last 24 Hours 02/13/18 02/13/18 02/13/18 02/13/18 13:01 13:18 13:30 13:45 Temp 98.3 98.3 98.3 98.3 98.3 98.3 Pulse 78 84 82 79 Resp 14 18 B/P (MAP) 136/79 (98) 126/76 (93) 125/75 (92) Pulse Ox 100 92 94 O2 Delivery Nasal Cannula Room Air Room Air Room Air O2 Flow Rate 2.0 02/13/18 02/13/18 02/13/18 02/13/18 14:00 14:15 14:45 15:15 Temp 98.3 98.3 98.3 98.3 98.3 98.3 98.3 98.3 Pulse 87 89 91 94 Resp 18 B/P (MAP) 130/77 (94) 131/81 (98) 151/79 (103) 130/87 (101) Pulse Ox 95 96 92 92 O2 Delivery Room Air Room Air Room Air Room Air 02/13/18 02/13/18 02/13/18 02/14/18 19:25 19:30 23:04 03:57 Temp 98.1 97.7 97.9 98.1 97.7 97.9 Pulse 65 107 93 Resp 18 B/P (MAP) 162/82 (108) 154/72 (99) 124/53 (76) Pulse Ox 93 93 96 O2 Delivery Room Air Room Air Room Air Room Air 02/14/18 02/14/18 02/14/18 02/14/18 07:30 07:57 10:07 11:00 Temp 97.2 97.6 97.2 97.6 Pulse 81 81 84 Resp 18 B/P (MAP) 136/60 (85) 136/60 118/65 (82) Pulse Ox 96 93 O2 Delivery Room Air Room Air Room Air Intake and Output 02/13/18 02/13/18 02/14/18 15:00 23:00 07:00 Intake Total 0 ml Output Total 0 ml Balance 0 ml 0 ml NALINI DRUMMOND Feb 14, 2018 13:05
--- NOTE | 2018-02-14 14:58 | RAD ---
Right lower extremity vein mapping, 02/14/2018: HISTORY: Preop evaluation for left leg bypass surgery Duplex evaluation of the saphenous veins in the right lower extremity was performed including grayscale, color-flow and spectral Doppler analysis. The right greater saphenous vein is patent measuring 2.6 to 5.9 mm in the thigh and 1.7 to 2.4 mm in the lower leg. The right lesser saphenous vein is patent measuring 1.7 to 2.4 mm. IMPRESSION: Patent greater saphenous and lesser saphenous veins in the right lower extremity with measurements as described above and fully delineated on the technologist worksheet available in the [employer] system. Bilateral upper extremity vein mapping, 02/14/2018: Duplex evaluation of the basilic and cephalic veins in both upper extremities was performed including grayscale, color-flow and spectral Doppler analysis. On the left the basilic vein is patent measuring 3.9 to 5.4 mm in the upper arm and 1.4 to 2.7 mm in the forearm. The left cephalic vein is patent but small, measuring approximately 1 mm in diameter throughout the upper arm and forearm. On the right the basilic vein is patent 4.3 to 4.9 mm in the upper arm and 0.9 to 1.8 mm in the forearm. The right cephalic vein is patent, but quite small measuring no more than 1 mm. IMPRESSION: 1. Patent basilic veins in both upper extremities with measurements as described above and fully delineated on the technologist worksheet available in the [employer] system. 2. Tiny cephalic veins. Electronically signed by: Santosh Sheets MD (02/14/2018 2:56 PM) [facility]
--- NOTE | 2018-02-14 14:58 | RAD ---
Right lower extremity vein mapping, 02/14/2018: HISTORY: Preop evaluation for left leg bypass surgery Duplex evaluation of the saphenous veins in the right lower extremity was performed including grayscale, color-flow and spectral Doppler analysis. The right greater saphenous vein is patent measuring 2.6 to 5.9 mm in the thigh and 1.7 to 2.4 mm in the lower leg. The right lesser saphenous vein is patent measuring 1.7 to 2.4 mm. IMPRESSION: Patent greater saphenous and lesser saphenous veins in the right lower extremity with measurements as described above and fully delineated on the technologist worksheet available in the [employer] PACs system. Bilateral upper extremity vein mapping, 02/14/2018: Duplex evaluation of the basilic and cephalic veins in both upper extremities was performed including grayscale, color-flow and spectral Doppler analysis. On the left the basilic vein is patent measuring 3.9 to 5.4 mm in the upper arm and 1.4 to 2.7 mm in the forearm. The left cephalic vein is patent but small, measuring approximately 1 mm in diameter throughout the upper arm and forearm. On the right the basilic vein is patent 4.3 to 4.9 mm in the upper arm and 0.9 to 1.8 mm in the forearm. The right cephalic vein is patent, but quite small measuring no more than 1 mm. IMPRESSION: 1. Patent basilic veins in both upper extremities with measurements as described above and fully delineated on the technologist worksheet available in the [employer] PACs system. 2. Tiny cephalic veins. Electronically signed by: Santosh Sheets MD (02/14/2018 2:56 PM) [facility]
[2018-02-14 15:00] VITALS: BP 130/60
[2018-02-14] MEDS ORDERED: METO-239 PO (16:40)
[2018-02-21] MEDS ORDERED: METF10007 PO (12:14)
[2018-02-21] MEDS ORDERED: ASPI-630 PO (12:14)
== END 2018-02-14 17:10 | disposition home or self-care (01) | DRG 315 ==
LOC: ER 14:33 → 4 NORTH 17:43
PROVIDERS: ADMIT Internal Medicine; ATTEND Internal Medicine
PROC: B41D1ZZ Fluoroscopy of Aorta and Bilateral Lower Extremity Arteries using Low Osmolar Contrast (ICD-10-PCS; principal; 2018-02-13)
DX: T82.856A Stenosis of peripheral vascular stent, initial encounter (principal); M86.9 Osteomyelitis, unspecified; I50.22 Chronic systolic (congestive) heart failure; I42.9 Cardiomyopathy, unspecified; E11.52 Type 2 diabetes mellitus with diabetic peripheral angiopathy with gangrene; I96 Gangrene, not elsewhere classified; E11.69 Type 2 diabetes mellitus with other specified complication; I25.10 Atherosclerotic heart disease of native coronary artery without angina pectoris; E78.00 Pure hypercholesterolemia, unspecified; E78.5 Hyperlipidemia, unspecified; E11.22 Type 2 diabetes mellitus with diabetic chronic kidney disease; I48.91 Unspecified atrial fibrillation; I11.0 Hypertensive heart disease with heart failure; I99.8 Other disorder of circulatory system; J44.9 Chronic obstructive pulmonary disease, unspecified; M19.90 Unspecified osteoarthritis, unspecified site; Z79.02 Long term (current) use of antithrombotics/antiplatelets; Z89.422 Acquired absence of other left toe(s); Z95.5 Presence of coronary angioplasty implant and graft; Z83.3 Family history of diabetes mellitus; Z82.49 Family history of ischemic heart disease and other diseases of the circulatory system; Z87.891 Personal history of nicotine dependence; E11.621 Type 2 diabetes mellitus with foot ulcer
CPT/HCPCS: 36415; 71046; 73630; 75630; 80048; 80053; 80061; 82962; 83036; 83605; 84443; 85025; 87040; 93005; 93926; 93970; 93971; 96372; 96374; 96375; 99152; 99153; C1769; C1771; C1892; J1644; J1815; J2001; J2250; J2543; J3010; 99285-25

== ENCOUNTER 2019-01-29 17:19 | Inpatient (IN) | payer OTHER ==
[~2019-01-29] VITALS: Ht 175.3 cm; Wt 96.8 kg
[~2019-01-29 17:19] MED LIST changes: +AMLO5TAB10 PO; -AMLO5TAB7 PO; +METF10007 PO; +METO-239 PO
--- NOTE | 2019-01-29 17:52 | PHYS DOC ---
Past Medical History Past Medical History: CAD, CHF, Diabetes-Type II, High Cholesterol, Hypertension, [place] Additional Past Medical Histor: HLD (HAILY CHEN APRN) Past Surgical History: Cholecystectomy Additional Past Surgical Histo: LEFT LEG VEIN SX, 5TH LEFT TOE AMPUTATED (HAILY CHEN APRN) Alcohol Use: Rarely Drug Use: None (HAILY CHEN APRN) Adult General Chief Complaint Chief Complaint: TOE PROBLEM HPI HPI Patient is a 78 year old male presents with left foot pain has been ongoing for week in his third digit of the left foot. The patient is a history of toe amputations due to diabetes. The patient states that he has had his fifth and second digit amputated on that same foot. States he has not checked his blood s ugar today. Rates his pain as 5 out of 10 in severity and sharp in his foot. (HAILY CHEN APRN) Review of Systems Review of Systems Constitutional: Denies fever or chills [] Eyes: Denies change in visual acuity, redness, or eye pain [] HENT: Denies nasal congestion or sore throat [] Respiratory: Denies cough or shortness of breath [] Cardiovascular: No additional information not addressed in HPI [] GI: Denies abdominal pain, nausea, vomiting, bloody stools or diarrhea [] : Denies dysuria or hematuria [] Musculoskeletal: Reports L foot pain. Integument: Denies rash or skin lesions [] Neurologic: Denies headache, focal weakness or sensory changes [] Endocrine: Denies polyuria or polydipsia [] Complete systems were reviewed and found to be within normal limits, except as documented in this note. (HAILY CHEN APRN) Allergies Allergies Allergies Coded Allergies Type Severity Reaction Last Updated Verified No Known Drug Allergies 02/22/18 No (JEANNINE LOYA MD) Physical Exam Physical Exam Constitutional: Well developed, well nourished, no acute distress, non-toxic appearance. [] HENT: Normocephalic, atraumatic, bilateral external ears normal, oropharynx moist, no oral exudates, nose normal. [] Eyes: PERRLA, EOMI, conjunctiva normal, no discharge. [] Neck: Normal range of motion, no tenderness, supple, no stridor. [] Cardiovascular:Heart rate regular rhythm, no murmur [] Lungs & Thorax: Bilateral breath sounds clear to auscultation [] Abdomen: Bowel sounds normal, soft, no tenderness, no masses, no pulsatile masses. [] Skin: Warm, dry, no erythema, no rash. [] Back: No tenderness, no CVA tenderness. [] Extremities: erythema to left foot and 3rd digit, 5th digit and 2nd digit amputated, 3rd digit has necrosis on the distal end. Neurologic: Alert and oriented X 3, normal motor function, normal sensory function, no focal deficits noted. [] Psychologic: Affect normal, judgement normal, mood normal. [] (HAILY CHEN APRN) Current Patient Data Vital Signs Vital Signs Date Time Temp Pulse Resp B/P (MAP) Pulse Ox O2 Delivery O2 Flow Rate FiO2 01/29/19 17:47 98.5 95 20 146/65 (92) 95 Room Air 98.5 (JEANNINE LOYA MD) Lab Values Laboratory Tests Test 01/29/19 18:15 White Blood Count 9.6 x10^3/uL (4.0-11.0) Red Blood Count 4.30 x10^6/uL (4.30-5.70) Hemoglobin 12.7 g/dL (13.0-17.5) L Hematocrit 37.5 % (39.0-53.0) L Mean Corpuscular Volume 87 fL (79-100) Mean Corpuscular Hemoglobin 30 pg (25-35) Mean Corpuscular Hemoglobin Concent 34 g/dL (31-37) Red Cell Distribution Width 13.5 % (11.5-14.5) Platelet Count 259 x10^3/uL (140-400) Neutrophils (%) (Auto) 73 % (31-73) Lymphocytes (%) (Auto) 11 % (24-48) L Monocytes (%) (Auto) 12 % (0-9) H Eosinophils (%) (Auto) 4 % (0-3) H Basophils (%) (Auto) 1 % (0-3) Neutrophils # (Auto) 7.0 x10^3/uL (1.8-7.7) Lymphocytes # (Auto) 1.1 x10^3/uL (1.0-4.8) Monocytes # (Auto) 1.1 x10^3/uL (0.0-1.1) Eosinophils # (Auto) 0.3 x10^3/uL (0.0-0.7) Basophils # (Auto) 0.0 x10^3/uL (0.0-0.2) Sodium Level 140 mmol/L (136-145) Potassium Level 4.8 mmol/L (3.5-5.1) Chloride Level 104 mmol/L (98-107) Carbon Dioxide Level 26 mmol/L (21-32) Anion Gap 10 (6-14) Blood Urea Nitrogen 42 mg/dL (8-26) H Creatinine 1.8 mg/dL (0.7-1.3) H Estimated GFR (Cockcroft-Gault) 36.8 BUN/Creatinine Ratio 23 (6-20) H Glucose Level 71 mg/dL (70-99) Lactic Acid Level 1.1 mmol/L (0.4-2.0) Calcium Level 8.8 mg/dL (8.5-10.1) Total Bilirubin 0.3 mg/dL (0.2-1.0) Aspartate Amino Transferase (AST) 15 U/L (15-37) Alanine Aminotransferase (ALT) 16 U/L (16-63) Alkaline Phosphatase 57 U/L (46-116) Total Protein 7.7 g/dL (6.4-8.2) Albumin 3.3 g/dL (3.4-5.0) L Albumin/Globulin Ratio 0.8 (1.0-1.7) L Laboratory Tests 01/29/19 18:15 Laboratory Tests 01/29/19 18:15 (JEANNINE LOYA MD) Lab Values Laboratory Tests Test 01/29/19 18:15 White Blood Count 9.6 x10^3/uL (4.0-11.0) Red Blood Count 4.30 x10^6/uL (4.30-5.70) Hemoglobin 12.7 g/dL (13.0-17.5) L Hematocrit 37.5 % (39.0-53.0) L Mean Corpuscular Volume 87 fL (79-100) Mean Corpuscular Hemoglobin 30 pg (25-35) Mean Corpuscular Hemoglobin Concent 34 g/dL (31-37) Red Cell Distribution Width 13.5 % (11.5-14.5) Platelet Count 259 x10^3/uL (140-400) Neutrophils (%) (Auto) 73 % (31-73) Lymphocytes (%) (Auto) 11 % (24-48) L Monocytes (%) (Auto) 12 % (0-9) H Eosinophils (%) (Auto) 4 % (0-3) H Basophils (%) (Auto) 1 % (0-3) Neutrophils # (Auto) 7.0 x10^3/uL (1.8-7.7) Lymphocytes # (Auto) 1.1 x10^3/uL (1.0-4.8) Monocytes # (Auto) 1.1 x10^3/uL (0.0-1.1) Eosinophils # (Auto) 0.3 x10^3/uL (0.0-0.7) Basophils # (Auto) 0.0 x10^3/uL (0.0-0.2) Sodium Level 140 mmol/L (136-145) Potassium Level 4.8 mmol/L (3.5-5.1) Chloride Level 104 mmol/L (98-107) Carbon Dioxide Level 26 mmol/L (21-32) Anion Gap 10 (6-14) Blood Urea Nitrogen 42 mg/dL (8-26) H Creatinine 1.8 mg/dL (0.7-1.3) H Estimated GFR (Cockcroft-Gault) 36.8 BUN/Creatinine Ratio 23 (6-20) H Glucose Level 71 mg/dL (70-99) Lactic Acid Level 1.1 mmol/L (0.4-2.0) Calcium Level 8.8 mg/dL (8.5-10.1) Total Bilirubin 0.3 mg/dL (0.2-1.0) Aspartate Amino Transferase (AST) 15 U/L (15-37) Alanine Aminotransferase (ALT) 16 U/L (16-63) Alkaline Phosphatase 57 U/L (46-116) Total Protein 7.7 g/dL (6.4-8.2) Albumin 3.3 g/dL (3.4-5.0) L Albumin/Globulin Ratio 0.8 (1.0-1.7) L Laboratory Tests 01/29/19 18:15 Laboratory Tests 01/29/19 18:15 (HAILY CHEN APRN) EKG EKG [] (HAILY CHEN APRN) Radiology/Procedures Radiology/Procedures [][facility] [address] [place] [address] IMAGING REPORT Signed PATIENT: JIMBO PAZ ACCOUNT: [id number] : 1940 LOCATION: ER AGE: 78 SEX: M EXAM STATUS: REG ER ORD. PHYSICIAN: HAILY CHEN APRN REASON: 3rd digit pain, erythema PROCEDURE: FOOT LEFT 3V Exam: Left foot 3 views INDICATION: Third digit pain, erythema TECHNIQUE: Frontal, lateral and oblique views of the left foot. Comparisons: None FINDINGS: Amputation deformity at the second and fifth digit at the level of the mid diaphysis proximal phalanx. Soft tissues are unremarkable. No acute fracture is identified. IMPRESSION: Indication deformities of the second and fifth digit. Otherwise, no acute osseous abnormality. Electronically signed by: Juan Dugan MD (01/29/2019 6:11 PM) [facility] DICTATED and SIGNED BY: JUAN DUGAN MD DATE: 01/29/191810 (HAILY CHEN APRN) Course & Med Decision Making Course & Med Decision Making Pertinent Labs and Imaging studies reviewed. (See chart for details) Will get x-ray and labs. X-ray is unremarkable. Discussed with Dr. Smith who accepts admission to hospital. Will get Vascular consult and arterial Doppler in the morning. Labs show a creatinine of 1.8 that is higher than 1.2 last time labs were taken. Will place on fluids. (HAILY CHEN APRN) Course & Med Decision Making I was not involved in the care of this patient. (JEANNINE LOYA MD) Dragon Disclaimer Dragon Disclaimer This electronic medical record was generated, in whole or in part, using a voice recognition dictation system. (HAILY CHEN APRN) Departure Departure Impression: Primary Impression: Diabetic foot infection Additional Impression: [place] (acute kidney injury) Disposition: ADMITTED INPATIENT Admitting Physician: Patrick Smith (HAILY CHEN APRN) Condition: STABLE Referrals: PATRICK SMITH MD (PCP) Problem Qualifiers HAILY CHEN APRN Jan 29, 2019 17:52 JEANNINE LOYA MD Jan 30, 2019 06:03
--- NOTE | 2019-01-29 18:14 | RAD ---
Exam: Left foot 3 views INDICATION: Third digit pain, erythema TECHNIQUE: Frontal, lateral and oblique views of the left foot. Comparisons: None FINDINGS: Amputation deformity at the second and fifth digit at the level of the mid diaphysis proximal phalanx. Soft tissues are unremarkable. No acute fracture is identified. IMPRESSION: Indication deformities of the second and fifth digit. Otherwise, no acute osseous abnormality. Electronically signed by: Juan Manuel MD (01/29/2019 6:11 PM) [facility]
[2019-01-29 18:33] LABS: BASO % 1 % (0-3); EOS # 0.3 x10^3/uL (0.0-0.7); EOS % 4 % (0-3); HEMATOCRIT 37.5 % (39.0-53.0); HEMOGLOBIN 12.7 g/dL (13.0-17.5); LYMPH # 1.1 x10^3/uL (1.0-4.8); LYMPH % 11 % (24-48); MEAN CORPUSCULAR HEMOGLOBIN 30 pg (25-35); MEAN CORPUSCULAR HGB CONC 34 g/dL (31-37); MEAN CORPUSCULAR VOLUME 87 fL (79-100); MONO # 1.1 x10^3/uL (0.0-1.1); MONO % 12 % (0-9); NEUT % 73 % (31-73); PLATELET COUNT 259 x10^3/uL (140-400); RED CELL DISTRIBUTION WIDTH 13.5 % (11.5-14.5); WHITE BLOOD COUNT 9.6 x10^3/uL (4.0-11.0)
[2019-01-29] MEDS ORDERED: PIPERACILLIN/TAZOBACTAM 3.375 GM in IV NORMAL SALINE 50ML 50 ML IV ONE (18:45)
[2019-01-29 18:53] LABS: CALCIUM 8.8 mg/dL (8.5-10.1); CREATININE 1.8 mg/dL (0.7-1.3); GFR 36.8; POTASSIUM 4.8 mmol/L (3.5-5.1)
[2019-01-29 18:58] LABS: ALBUMIN 3.3 g/dL (3.4-5.0); ALBUMIN/GLOBULIN RATIO 0.8 (1.0-1.7); TOTAL BILIRUBIN 0.3 mg/dL (0.2-1.0); TOTAL PROTEIN 7.7 g/dL (6.4-8.2)
[2019-01-29] MEDS: fentaNYL PF VIAL 100 MCG/2 ML VIAL IV PRN (19:00)
[2019-01-29] MEDS ORDERED: IV NORMAL SALINE 1000ML BAG 1,000 ML IV ONE ×2 (19:15)
[2019-01-29] MEDS ORDERED: DEXTROSE 50% 25 GM / 50ML DISP.SYRIN. IV PRN (22:15)
[2019-01-29 23:47] VITALS: BP 123/72
[2019-01-29] MEDS: SIMVASTATIN 20 MG TABLET PO SCH (23:48)
[2019-01-29] MEDS: INSULIN GLARGINE SYRINGE. SQ SCH (23:52)
[2019-01-30] VITALS (15 sets, daily range): BP systolic 108–150; BP diastolic 51–78
[2019-01-30 03:30] LABS: CALCIUM 8.4 mg/dL (8.5-10.1); CREATININE 1.7 mg/dL (0.7-1.3); GFR 39.3; POTASSIUM 4.4 mmol/L (3.5-5.1); PROTHROMBIN TIME PATIENT 14.6 SEC (11.7-14.0)
[2019-01-30] MEDS: INSULIN LISPRO 300 UNITS/3 ML VIAL. SQ SCH ×5 (07:30→17:39)
[2019-01-30] MEDS: ASPIRIN CHEWABLE 81 MG TABLET. PO SCH (07:55)
[2019-01-30] MEDS: metFORMIN 500 MG TABLET PO SCH ×2 (07:55→16:42)
[2019-01-30] MEDS: CLOPIDOGREL BISULFATE 75 MG TABLET PO SCH (07:55)
--- NOTE | 2019-01-30 08:12 | RAD ---
Bilateral lower extremity arterial Doppler 01/29/2019 INDICATION: Left foot pain and erythema. COMPARISON: Femoral runoff 02/13/2018. TECHNIQUE: Sonographic evaluation of bilateral lower extremity arterial system was performed utilizing grayscale and color Doppler with spectral waveform analysis. FINDINGS: Right: There is biphasic waveform throughout the right lower extremity from the common femoral artery through the posterior tibial artery with monophasic waveforms involving the peroneal and dorsalis pedis arteries. There is biphasic waveform involving the anterior tibial artery. Findings reflect at least mild peripheral vascular disease. 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 Ruby lumen measures 1.4 cm. There is a common femoral artery stent graft which is occluded. Collateral vessels are present. Monophasic waveforms are identified throughout the left lower extremity compatible with at least moderate peripheral vascular disease. Common femoral artery: 64 cm/s Profunda artery: 95 cm/s Superficial femoral artery, proximal: Occluded Superficial femoral artery, mid: Occluded Superficial femoral artery, distal: Occluded Popliteal artery: 46 cm/s Posterior tibial artery: 23-66 cm/s Anterior tibial artery: 65 cm/s Peroneal artery: 23 cm/s Dorsalis pedis artery: 17 cm/s IMPRESSION: 1. There is occlusion of the [place] profunda femoral artery stent graft with reconstitution of flow within the popliteal artery. Monophasic waveforms are identified throughout the left lower extremity compatible with moderate to severe peripheral vascular disease. 2. Mild peripheral vascular disease involving the right lower extremity arterial system without significant high-grade stenosis. 3. 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 Electronically signed by: Raven Encarnacion MD (01/30/2019 8:09 AM) [facility]
[2019-01-30] MEDS ORDERED: IV RINGERS,LACTATED 1000ML 1,000 ML IV SCH (08:20)
[2019-01-30] MEDS ORDERED: fentaNYL PF VIAL 100 MCG/2 ML VIAL IV PRN ×2 (08:30)
[2019-01-30] MEDS ORDERED: MORPHINE SULFATE 2 MG/ML VIAL. IV PRN (08:30)
[2019-01-30] MEDS ORDERED: HYDROmorphone 2 MG/ML VIAL IV PRN (08:30)
[2019-01-30] MEDS ORDERED: ONDANSETRON PF 4 MG/2 ML VIAL. IV PRN (08:30)
[2019-01-30] MEDS ORDERED: PROCHLORPERAZINE 10 MG/2 ML VIAL. IV PRN (08:30)
--- NOTE | 2019-01-30 08:57 | NUR ---
SS following for discharge planning. SS reviewed pt chart. Pt is from home with spouse and is currently on room air. SS will continue to follow for discharge planning.
[2019-01-30] MEDS: FUROSEMIDE 20 MG TABLET PO SCH (09:00)
[2019-01-30] MEDS: LISINOPRIL 20 MG TABLET PO SCH (09:00)
[2019-01-30] MEDS: fentaNYL PF VIAL 100 MCG/2 ML VIAL IV PRN (09:10)
[2019-01-30] MEDS: METOPROLOL SUCC 24HR ER 25 MG TAB.ER.24H. PO SCH (09:10)
[2019-01-30] MEDS ORDERED: IV DEXTROSE 5% - 0.9 % NACL 1,000 ML IV SCH (09:30)
--- NOTE | 2019-01-30 10:07 | PDOC ---
Provider Note Provider Note Pt seen.H&P dictated. #[id number]. MOSHE SMITH MD Jan 30, 2019 10:07
--- NOTE | 2019-01-30 10:30 | HP ---
ADMIT DATE: 01/29/2019 LOCATION: 646. REASON FOR ADMISSION TO THE HOSPITAL: Left third toe had a necrotic area, dark discoloration. The patient has diabetes, peripheral vascular disease. HISTORY OF PRESENT ILLNESS: The patient is a 78-year-old male with history of diabetes, peripheral vascular disease, had a previous two toes removed from the left foot in the past, and he is supposed to see the foot doctor for ulcer. In the meantime, it got dark and necrotic. The patient came to Emergency Room, was admitted to the hospital. The patient has a history of diabetes, bilateral leg bypass surgeries and peripheral vascular disease. Has a history of hypertension, hyperlipidemia, coronary artery disease, congestive heart failure, chronic systolic stable. PAST SURGICAL HISTORY: He has had a leg bypass, bilateral. Had a second and fifth toe removed from the left foot. History of cardiac cath in the past. ALLERGIES: No known drug allergies. MEDICATIONS: The patient is on aspirin 81 mg daily, Plavix 75 mg daily, Lasix 20 mg daily, insulin 30 units 3 times daily, NovoLog, Levemir 15 units at bedtime, lisinopril 40 mg daily, metformin 1000 mg twice a day, metoprolol 25 mg daily and simvastatin 20 mg daily. PERSONAL HISTORY: Smoked for at least 50 years, quit a couple of years ago. Denies alcohol or street drugs. FAMILY HISTORY: Positive for diabetes, heart disease. REVIEW OF SYSTEMS: Denies any chest pain or shortness of breath. PHYSICAL EXAMINATION: GENERAL: The patient is not in any distress. VITAL SIGNS: Temperature 99, pulse 85, respirations 16, blood pressure 140/72, 93 on room air. HEENT: Head is atraumatic. Pupils equal. Oral cavity: No congestion. NECK: Supple. Thyroid not enlarged. JVD not elevated. CHEST: Symmetrical. CARDIOVASCULAR: S1, S2. LUNGS: Clear. ABDOMEN: Soft, no mass palpable. EXTERNAL GENITALIA: No Gordon. RECTAL: Deferred. BACK: The patient has scar in bilateral lower extremities, right foot, no ulcerations. Left, the patient had amputation of the second and fifth toes. Third toe has a deep dark and black and the patient has some pain on motion. Pulses not able to feel. LABORATORY DATA: Shows a white count of 9, hemoglobin 12, platelets 259. INR is 1.2. Electrolytes showed sodium 130, potassium 4.8, chloride 104, bicarbonate 26, BUN 42, creatinine 1.8 and glucose 71. Lactic acid 1.1. LFTs normal. X-ray of the toe had arterial Doppler, which shows occlusion of the [place] arteries. There is a little bit of flow at the popliteal artery, some aneurysm in the left common femoral artery. FINAL IMPRESSION: 1. Severe peripheral vascular disease. 2. Left toe gangrene.3,4 th toes 3. Insulin-dependent diabetes. 4. Hypertension. 5. Hyperlipidemia. 6. History of bypass to both lower extremities. 7. Ex-smoker. 8. Ac on CRF stage 3. PLAN: At this time, admit to hospital, vascular consult, probably may go for toe amputations. Continue IV fluids hydration and IV antibiotics.Monitor kidney function. MOSHE SMITH MD DR: KERVIN/catalina JOB#: [id number] / [id number] DANUTA
[2019-01-30] MEDS ORDERED: PROPOFOL 0 ML IV ONE (11:44)
[2019-01-30] MEDS ORDERED: DEXAMETHASONE SOD PHOS 4 MG/ML VIAL ONE (11:44)
[2019-01-30] MEDS ORDERED: ONDANSETRON PF 4 MG/2 ML VIAL. ONE (11:44)
[2019-01-30] MEDS ORDERED: LIDOCAINE 2% PF 5 ML VIAL. ONE (11:44)
[2019-01-30] MEDS ORDERED: SURGICEL FIBRILLAR 1X2 EACH. ONE (12:52)
[2019-01-30] MEDS ORDERED: LIDOCAINE 1% 20 ML VIAL. ONE (12:52)
[2019-01-30] MEDS ORDERED: ceFAZolin 1GM IVPB FOR OMNI 100 ML IV ONE (13:08)
--- NOTE | 2019-01-30 13:14 | PDOC ---
Provider Note Provider Note Vascular Surgery Consult dictated 78 year old male with know left leg peripheral vascular disease with gangrene of the left 3rd and 4th toes. He has a chronically occluded left leg bypass however despite this healed a toe amputation one year ago. Will proceed with amputation of the left 3rd and 4th toes and monitor healing. If he does not heal the amputations will need to consider further bypass surgery in the future. MADAI CRUZ MD Jan 30, 2019 13:14
--- NOTE | 2019-01-30 13:55 | PDOC ---
BRIEF OPERATIVE NOTE Date: Jan 30, 2019 Pre-Op Diagnosis Gangrene L 3rd and 4th toes PAD Post-Op Diagnosis Same Procedure Performed Left 3rd and 4th toe amputations, closed Surgeon Abida Bryson MD Surgical Technology Instructor None Anesthesia Type: MAC Blood Loss 3mL Specimens Obtained Cultures taken Complications None immediate Operative Note See dictated op note NALINI DRUMMOND Jan 30, 2019 13:55
[2019-01-30] MEDS: PIPERACILLIN/TAZOBACTAM 3.375 GM in IV NORMAL SALINE 50ML 50 ML IV SCH ×3 (14:00→23:47)
[2019-01-30] MEDS ORDERED: PIP/TAZO PER PHARMACY MC PRN (14:00)
--- NOTE | 2019-01-30 14:08 | CONS ---
DATE OF CONSULTATION: 01/30/2019 CHIEF COMPLAINT: Left toe infection. HISTORY OF PRESENT ILLNESS: The patient is a 78-year-old male with a long history of left lower extremity peripheral arterial disease, who has developed gangrene of his left third toe and a necrotic ulcer on the lateral aspect of his left fourth toe. He has undergone bypass surgery on the left leg in the past, which is chronically occluded. Approximately 1 year ago, he underwent left toe amputation by Dr. Pizarro and at that time the bypass was chronically occluded. The toe amputation site bled well in the operating room and healed per Dr. Pizarro. With this history, we have a significant chance that the amputation needed today will heal without further revascularization. The patient reports no pain in his legs. He can ambulate independently with no significant pain in his legs. He reports that the left third toe he squeezed yesterday and fluid did drain out of the tip of the toe. He has noticed no significant swelling in his foot. He has had no fevers or chills. He has been admitted to the hospital and started on antibiotics. REVIEW OF SYSTEMS: A 10-point review of systems was performed, which is otherwise negative besides what is mentioned in history of present illness. PAST MEDICAL HISTORY: Includes: 1. Peripheral arterial disease. 2. History of a left leg bypass which is chronically occluded. 3. Coronary artery disease. 4. Diabetes mellitus. 5. Hypertension. 6. Hyperlipidemia. PAST SURGICAL HISTORY: Includes: 1. Left leg bypass which is chronically occluded. 2. Left second and fifth toe amputations which have been done in the past. ALLERGIES: No known drug allergies. MEDICATIONS: Please see his full MAR. He is on daily aspirin and Plavix. FAMILY HISTORY: Significant for diabetes and heart disease. SOCIAL HISTORY: He does not smoke or use alcohol. PHYSICAL EXAMINATION: GENERAL: The patient is awake and alert, currently in no apparent distress. VITAL SIGNS: He has a maximum temperature of 99.6. He is currently afebrile. His vital signs are stable. NECK: Supple. ABDOMEN: Soft, nondistended, and nontender. EXTREMITIES: His left lower extremity is warm. He has no significant swelling in his left leg. He has scars on his groin and medial calf from previous bypass surgery. His left second and fifth toes have been amputated in the past and there is no breakdown of the incision at the base of the toes. His left third toe has dry gangrene of the tip of the toe with areas of open wounds. There is mild erythema of the toe with no significant swelling. The left fourth toe has an open necrotic wound on the lateral aspect of the toe, which is very painful to palpation. There is no drainage expressed from this area. His left first toe is healthy with no tissue breakdown. His right lower extremity is warm without edema and no tissue breakdown in his right foot. I cannot palpate pulses in his feet; however, his feet are warm and pink with normal intact motor and sensory function and no signs of ischemia. His bilateral upper extremities are warm with no edema. NEUROLOGIC: He is awake and alert, oriented x 3, and moving all 4 extremities with normal strength. No gross neurologic deficits. HEART: Regular rate and rhythm. LUNGS: Bilateral breath sounds to auscultation. IMPRESSION: 1. Left third and fourth toe gangrene. 2. Left lower extremity peripheral arterial disease with a chronically occluded bypass. PLAN: The patient has gangrene of his left third toe tip and left lateral fourth toe necrotic wound. I recommended amputation of the left third and fourth toes. The skin is healthy towards the base of these toes. Hopefully, a primary amputation, which can be closed, will be performed. I do recommend continuing antibiotics. He does have known arterial disease with a chronically occluded bypass. However, he did heal a toe amputation with his occluded bypass 1 year ago. I explained to him that there is a chance that these amputation sites may not heal and if they do not in the future, we will need to consider a redo bypass surgery for further revascularization. MADAI CRUZ MD DR: JEWELL/catalina JOB#: [id number] / [id number]
--- NOTE | 2019-01-30 14:16 | OP ---
DATE OF SURGERY: 01/30/2019 SURGEON: Abida Bryson MD ANESTHESIA USED: Monitored sedation. PREOPERATIVE DIAGNOSES: Left third toe and fourth toe gangrene. POSTOPERATIVE DIAGNOSES: Left third toe and fourth toe gangrene. OPERATION PERFORMED: 1. Left third toe amputation at the base of the toe, which was with a closed incision. 2. Left fourth toe amputation at the base of the toe with a closed incision. BLOOD LOSS: 3 mL. INDICATIONS: The patient is a 78-year-old male with a long history of left lower extremity peripheral arterial disease. He has developed gangrene of the left third and fourth toes with drainage from his third toe seen yesterday. He has associated cellulitis of the toes. He has had previous left second and fifth toe amputations, which have healed well in the past. His last amputation was a year ago by Dr. Pizarro and at that time, he had known peripheral arterial disease with a chronically occluded bypass graft and it healed the amputation site well. We will proceed with amputation. I explained to him that if these do not heal this time that we will need to consider further revascularization with a redo bypass surgery. Informed consent was obtained. DETAILS OF THE OPERATION: The patient was brought to the operating room and placed on table in the supine position. He received monitored sedation throughout the case by the anesthesiologist. His left foot and ankle were prepped and draped by normal sterile fashion. We used 1% lidocaine, performed a digital block at the base of the left third and fourth toes. I started with the left third toe. I made an elliptical incision around the proximal toe, dissected down through the subcutaneous tissue and tendons down to the bone and transected the bone with a bone cutter. I brought the bone back within the wound with a rongeur. The metatarsal head was not exposed and did not need to be removed. I then made an elliptical incision around the base of the fourth toe. When squeezing the toe, purulent drainage did express out of the fourth toe lateral open wound and this was sent for culture. I dissected down through the subcutaneous tissue and tendon down to the bone and transected the fourth bone with bone cutter and removed the toe. The bone was brought back into the wound with a rongeur. We did not have to expose the metatarsal head or remove it during the case. All tendons were removed from both the amputation sites. There was no further necrotic tissue. We irrigated with copious amounts of antibiotic solution. There was some bleeding from both surgical sites, which was controlled with electrocautery. I then closed both incisions with running 3-0 nylon suture. Xeroform was left over the incisions, 4 x 4 gauze, Kerlix wrap and an David bandage. He tolerated the surgery well with no immediate complications. ABIDA BRYSON MD DR: JEWELL/catalina JOB#: [id number] / [id number]
--- NOTE | 2019-01-30 15:18 | NUR ---
Wound Care: Pt off unit for amputation of 3/4th toe amputations of left foot. Will follow up 01/31/19
--- NOTE | 2019-01-30 20:26 | EKG ---
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
[2019-01-30] MEDS: SIMVASTATIN 20 MG TABLET PO SCH (20:31)
[2019-01-30] MEDS: fentaNYL PF VIAL 100 MCG/2 ML VIAL IVP PRN ×2 (20:31→23:47)
[2019-01-30] MEDS ORDERED: IV NORMAL SALINE 1000ML BAG 1,000 ML IV SCH (21:00)
[2019-01-30] MEDS ORDERED: INSULIN DETEMIR 50 UNIT SQ SCH (21:00)
[2019-01-30] MEDS: HYDROcodone/APAP 5/325MG 1 TAB TABLET PO PRN (22:14)
[2019-01-30] MEDS: INSULIN GLARGINE SYRINGE. SQ SCH (22:15)
[2019-01-31 03:40] VITALS: BP 136/62
[2019-01-31] MEDS: fentaNYL PF VIAL 100 MCG/2 ML VIAL IVP PRN ×3 (03:46→10:22)
[2019-01-31 05:15] LABS: CALCIUM 8.8 mg/dL (8.5-10.1); CREATININE 1.4 mg/dL (0.7-1.3); GFR 49.1; POTASSIUM 4.6 mmol/L (3.5-5.1)
[2019-01-31] MEDS: PIPERACILLIN/TAZOBACTAM 3.375 GM in IV NORMAL SALINE 50ML 50 ML IV SCH ×3 (06:12→17:44)
[2019-01-31] MEDS: HYDROcodone/APAP 5/325MG 1 TAB TABLET PO PRN ×3 (06:17→21:00)
[2019-01-31 07:00] VITALS: BP 113/64
[2019-01-31] MEDS: INSULIN LISPRO 300 UNITS/3 ML VIAL. SQ SCH ×3 (07:30→17:52)
--- NOTE | 2019-01-31 08:34 | PDOC ---
Infectious Disease Note Vital Sign Vital Signs Vital Signs Date Time Temp Pulse Resp B/P (MAP) Pulse Ox O2 Delivery O2 Flow Rate FiO2 01/31/19 07:00 98.4 81 20 113/64 (80) 92 Room Air 98.4 01/30/19 13:50 10 Labs Lab Laboratory Tests Test 01/30/19 08:49 01/30/19 11:47 01/30/19 13:57 01/30/19 16:46 Glucose (Fingerstick) 114 mg/dL (70-99) 135 mg/dL (70-99) 115 mg/dL (70-99) 234 mg/dL (70-99) Test 01/30/19 20:50 01/30/19 20:59 01/30/19 21:42 01/31/19 03:35 Magnesium Level 2.2 mg/dL (1.8-2.4) Glucose (Fingerstick) 66 mg/dL (70-99) 96 mg/dL (70-99) Sodium Level 139 mmol/L (136-145) Potassium Level 4.6 mmol/L (3.5-5.1) Chloride Level 104 mmol/L (98-107) Carbon Dioxide Level 28 mmol/L (21-32) Anion Gap 7 (6-14) Blood Urea Nitrogen 20 mg/dL (8-26) Creatinine 1.4 mg/dL (0.7-1.3) Estimated GFR (Cockcroft-Gault) 49.1 Glucose Level 104 mg/dL (70-99) Calcium Level 8.8 mg/dL (8.5-10.1) Test 01/31/19 07:19 Glucose (Fingerstick) 132 mg/dL (70-99) Micro Microbiology 01/29/19 Blood Culture - Preliminary, Resulted NO GROWTH AFTER 1 DAY Objective Assessment Necrotic 3 rd and 4 th toes L foot S/p Left third/fourth toe amputations at the bases with closed incisions. CKD - better V-tach DM s/p Dexamethasone 01/30 Plan Plan of Care Agree with Zosyn for now F/u labs and cults and de-escalate soon to po. Elevation Await Cardiology eval Thank you D/w nursing # [id number] FANG HERRERA MD Jan 31, 2019 08:34
--- NOTE | 2019-01-31 08:49 | CONS ---
DATE OF CONSULTATION: 01/31/2019 INFECTIOUS DISEASE CONSULTATION LOCATION: The patient is in room 646. REQUESTING PHYSICIAN: Abida Bryson MD REASON FOR CONSULTATION: Necrotic toes, status post amputation, cultures taken in the operating room, on Zosyn. HISTORY OF PRESENT ILLNESS: The patient is a pleasant 78-year-old gentleman with longstanding history of diabetes, who also has complication with left lower extremity chronic occlusion. He states over the last month, his toe began to hurt on the left side. He denies any trauma, but then 2 days ago, took his shoe off and then noticed that it had changed dramatically. States he squeezed on his toe and some fluid came out. He then told his he is going to the hospital. He presented on the at which time he was given Zosyn. He has been evaluated by Vascular Surgery who took him to surgery on the and underwent amputation of his third and fourth left toes secondary to necrotic area. He has been continued on Zosyn and we have been consulted. The amputation sites are closed. Currently, the patient is sitting in a chair. He is eating breakfast. He states last night he had increasing pain and had had the dressing loosened. He has not been having any fever, chills, sweats, shortness of air, nausea, vomiting, diarrhea, dysuria, frequency or urgency. PAST MEDICAL HISTORY: Positive for diabetes, peripheral arterial disease, coronary artery disease, hypertension, hyperlipidemia. PAST SURGICAL HISTORY: Positive for left lower extremity angioplasty stenting, left fifth toe amputation. REVIEW OF SYSTEMS: Otherwise negative. ALLERGIES: No known drug allergies. SOCIAL HISTORY: He is . No tobacco or alcohol. 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 He does not do much walking, is mainly monitoring. FAMILY HISTORY: Positive for diabetes, heart disease. CURRENT MEDICATIONS: Include Zosyn. He did receive cefazolin, aspirin, Plavix, Lasix, insulin, Prinivil, Glucophage, metoprolol, Zocor. PHYSICAL EXAMINATION: VITAL SIGNS: Afebrile, temperature 98.4, pulse 81, respirations 20, blood pressure 113/64, satting 92% on room air. CONSTITUTIONAL: He is a pleasant gentleman. He is cooperative, in no acute distress. HEENT: His pupils are status post cataract. He has normal conjunctivae. Oral cavity, pharynx is clear. NECK: Supple. LUNGS: Clear to auscultation. HEART: S1, S2. ABDOMEN: Obese, soft, nontender, nondistended with positive bowel sounds. EXTREMITIES: Without clubbing, cyanosis. I did review remove his dressing because he is complaining of increasing pain. The wound is well approximated with sutures. There is mild erythema associated with it. There is no duskiness. There is no drainage. There is some drying crusting blood. SKIN: Otherwise, warm to touch without signs of rash. NEUROLOGIC: He is nonfocal. PSYCHIATRIC: Affect is appropriate. LABORATORY VALUES: White count was 9.6 on arrival, hemoglobin 12.7, platelets 259, neutrophils 73, lymphs were 11. Today, glucose of 104, creatinine of 1.4. Blood cultures x 2 from the are negative. Wound cultures are still pending. IMPRESSION: 1. Necrotic third and fourth toes of the left foot. 2. Status post left third toe amputation and a left fourth toe amputation with closed incisions. 3. Chronic kidney disease that has improved. 4. Episode of ventricular tachycardia overnight. 5. Diabetes. 6. Status post dexamethasone on the . RECOMMENDATIONS: For now, he has been walking in his room without a walking shoe. Thank you for allowing me to participate in the patient's care. Should you have any further questions, please do not hesitate to contact me. FANG HERRERA MD DR: GEETA/catalina JOB#: [id number] / [id number]
[2019-01-31] MEDS: CLOPIDOGREL BISULFATE 75 MG TABLET PO SCH (09:01)
[2019-01-31] MEDS: FUROSEMIDE 20 MG TABLET PO SCH (09:01)
[2019-01-31] MEDS: metFORMIN 500 MG TABLET PO SCH ×2 (09:01→17:46)
[2019-01-31] MEDS: LISINOPRIL 20 MG TABLET PO SCH (09:01)
[2019-01-31] MEDS: METOPROLOL SUCC 24HR ER 25 MG TAB.ER.24H. PO SCH (09:02)
[2019-01-31] MEDS: ASPIRIN CHEWABLE 81 MG TABLET. PO SCH (09:02)
--- NOTE | 2019-01-31 10:16 | PDOC ---
PROGRESS NOTES Subjective Subjective foot pain Objective Objective Vital Signs Date Time Temp Pulse Resp B/P (MAP) Pulse Ox O2 Delivery O2 Flow Rate FiO2 01/31/19 09:02 81 113/64 01/31/19 07:43 17 Room Air 01/31/19 07:00 98.4 92 98.4 01/30/19 13:50 10 Intake and Output 01/31/19 07:00 Intake Total 2450 ml Output Total 2178 ml Balance 272 ml Intake Oral 1350 ml IV Total 1100 ml Output Urine Total 2175 ml Estimated Blood Loss 3 ml # Voids 2 Physical Exam Abdomen: Normal bowel sounds, Soft Heart: Regular rate, Normal S1 Extremities: No clubbing General: Alert HEENT: Atraumatic Lungs: Clear to auscultation MUSCULOSKELETAL: Osteoarthritic changes both hands Neck: No JVD Neuro: Normal speech Psych/Mental Status: Mental status NL Skin: No breakdown Diagnosis Problem List Problems Medical Problems: (1) PAYTON (acute kidney injury) Status: Acute (2) Diabetic foot infection Status: Acute Assessment Assessment Problems Medical Problems: (1) PAYTON (acute kidney injury) Status: Acute (2) Diabetic foot infection Status: Acute FINAL IMPRESSION:non sustained asymptomatic V Tachycardia less than 30 beat 1. Severe peripheral vascular disease. 2. Left toe gangrene.3,4 th toes 3. Insulin-dependent diabetes. 4. Hypertension. 5. Hyperlipidemia. 6. History of bypass to both lower extremities. 7. Ex-smoker. 8. Ac on CRF stage 3. 9.CAD.stable PLAN:POD #1, toe amputations lt foot. monitor showed non sustained asymptomatic V Tachycardia less than 30 beat,last night. cardiology consult cr 1.4 improved d/c iv fluids. home tomorrow? At this time, admit to hospital, vascular consult, probably may go for toe amputations. Continue IV fluids hydration and IV antibiotics.Monitor kidney function. Plan Plan of Care Problems Medical Problems: (1) PAYTON (acute kidney injury) Status: Acute (2) Diabetic foot infection Status: Acute Comment Review of Relevant I have reviewed the following items ye (where applicable) has been applied. Labs Laboratory Tests Test 01/30/19 11:47 01/30/19 13:57 01/30/19 16:46 01/30/19 20:50 Glucose (Fingerstick) 135 mg/dL (70-99) 115 mg/dL (70-99) 234 mg/dL (70-99) Magnesium Level 2.2 mg/dL (1.8-2.4) Test 01/30/19 20:59 01/30/19 21:42 01/31/19 03:35 01/31/19 07:19 Glucose (Fingerstick) 66 mg/dL (70-99) 96 mg/dL (70-99) 132 mg/dL (70-99) Sodium Level 139 mmol/L (136-145) Potassium Level 4.6 mmol/L (3.5-5.1) Chloride Level 104 mmol/L (98-107) Carbon Dioxide Level 28 mmol/L (21-32) Anion Gap 7 (6-14) Blood Urea Nitrogen 20 mg/dL (8-26) Creatinine 1.4 mg/dL (0.7-1.3) Estimated GFR (Cockcroft-Gault) 49.1 Glucose Level 104 mg/dL (70-99) Calcium Level 8.8 mg/dL (8.5-10.1) Microbiology 01/29/19 Blood Culture - Preliminary, Resulted NO GROWTH AFTER 1 DAY Medications Current Medications Acetaminophen/ Hydrocodone Bitart (Lortab 5/325) 1 tab PRN Q4HRS PRN PO MODERATE PAIN Last administered on 01/31/19at 06:17; Start 01/30/19 at 14:00 Cefazolin Sodium 100 ml @ As Directed STK-MED ONCE IV ; Start 01/30/19 at 13:08; Stop 01/30/19 at 13:08; Status DC Cefazolin Sodium 1 gm/Sodium Chloride 500 ml @ 500 mls/hr 1X ONCE IRR Last administered on 01/30/19at 13:30; Start 01/30/19 at 13:00; Stop 01/30/19 at 14:0 1; Status DC Cellulose (Surgicel Fibrillar 1x2) 1 each STK-MED ONCE .ROUTE ; Start 01/30/19 at 12:52; Stop 01/30/19 at 12:52; Status DC Dexamethasone Sodium Phosphate (Decadron) 4 mg STK-MED ONCE .ROUTE ; Start 01/30/19 at 11:44; Stop 01/30/19 at 11:44; Status DC Fentanyl Citrate (Fentanyl 2ml Vial) 50 mcg PRN Q3HRS PRN IVP PAIN Last administered on 01/31/19at 07:13; Start 01/30/19 at 20:15 Insulin Human Lispro (HumaLOG) 0-5 UNITS TIDWMEALS SQ ; Start 01/30/19 at 12:00; Stop 01/30/19 at 17:12; Status DC Lidocaine HCl 20 ml STK-MED ONCE .ROUTE Last administered on 01/30/19at 13:30; Start 01/30/19 at 12:52; Stop 01/30/19 at 12:52; Status DC Lidocaine HCl (Lidocaine Pf 2% Vial) 5 ml STK-MED ONCE .ROUTE ; Start 01/30/19 at 11:44; Stop 01/30/19 at 11:44; Status DC Multivitamins/ Minerals (I-Viri) 1 tab DAILY PO ; Start 02/01/19 at 09:00 Non-Formulary Medication (Insulin Detemir (Levemir)) 50 unit HS SQ ; Start 01/30/19 at 21:00; Status UNV Ondansetron HCl (Zofran) 4 mg STK-MED ONCE .ROUTE ; Start 01/30/19 at 11:44; Stop 01/30/19 at 11:44; Status DC Piperacillin Sod/ Tazobactam Sod (Zosyn Per Pharmacy) 1 each PRN DAILY PRN MC SEE COMMENTS; Start 01/30/19 at 14:00 Piperacillin Sod/ Tazobactam Sod 3.375 gm/Sodium Chloride 50 ml @ 100 mls/hr Q6HRS IV Last administered on 01/31/19at 06:12; Start 01/30/19 at 14:00 Propofol 0 ml @ As Directed STK-MED ONCE IV ; Start 01/30/19 at 11:44; Stop 01/30/19 at 11:44; Status DC Sodium Chloride 1,000 ml @ 75 mls/hr [id number] IV Last administered on 01/30/19at 20:30; Start 01/30/19 at 21:00 Vitals/I & O Vital Sign - Last 24 Hours 01/30/19 01/30/19 01/30/19 01/30/19 10:39 11:00 12:53 13:50 Temp 98.0 98.0 98.0 98.0 Pulse 90 79 84 Resp 18 15 15 B/P (MAP) 141/87 108/61 (77) 133/62 Pulse Ox 95 96 O2 Delivery Simple Mask Room Air Room Air Room Air O2 Flow Rate 10 10 01/30/19 01/30/19 01/30/19 01/30/19 13:50 14:08 14:30 14:45 Temp 97.2 97.5 97.5 97.7 97.2 97.5 97.5 97.7 Pulse 80 78 84 88 Resp 17 16 17 17 B/P (MAP) 110/70 137/66 143/74 (97) 150/78 (102) Pulse Ox 95 96 96 O2 Delivery Room Air Room Air Room Air Room Air 01/30/19 01/30/19 01/30/19 01/30/19 15:00 15:15 15:30 16:30 Pulse 97 89 85 85 B/P (MAP) 141/72 (95) 142/65 (90) 132/65 (87) 118/63 (81) Pulse Ox 90 96 94 94 O2 Delivery Room Air Room Air Room Air Room Air 01/30/19 01/30/19 01/30/19 01/30/19 17:00 17:30 18:00 18:30 Pulse 80 69 81 91 B/P (MAP) 123/63 (83) 126/67 (86) 126/63 (84) 136/64 (88) Pulse Ox 95 93 95 95 O2 Delivery Room Air Room Air Room Air Room Air 01/30/19 01/30/19 01/30/19 01/31/19 19:37 20:05 23:10 03:40 Temp 98.6 98.1 98.3 98.6 98.1 98.3 Pulse 83 78 72 Resp 20 20 20 B/P (MAP) 129/62 (84) 134/51 (78) 136/62 (86) Pulse Ox 96 92 96 O2 Delivery Room Air Room Air Room Air Room Air 01/31/19 01/31/19 01/31/19 01/31/19 07:00 07:17 07:43 09:01 Temp 98.4 98.4 Pulse 81 81 Resp 20 17 17 B/P (MAP) 113/64 (80) 113/64 Pulse Ox 92 O2 Delivery Room Air Room Air Room Air 01/31/19 09:02 Pulse 81 B/P (MAP) 113/64 Intake and Output 01/30/19 01/30/19 01/31/19 15:00 23:00 07:00 Intake Total 700 ml 1400 ml 350 ml Output Total 3 ml 500 ml 1675 ml Balance 697 ml 900 ml -1325 ml MOSHE SIMTH MD Jan 31, 2019 10:16
--- NOTE | 2019-01-31 10:38 | PDOC2 ---
PATRICIA RESTREPO CHIEF CONCIERGE 01/31/19 1037: CARDIAC CONSULT DATE OF CONSULT Date of Consult DATE: 01/31/19 TIME: 10:16 REASON FOR CONSULT Reason for Consult: NSVT REFERRING PHYSICIAN Referring Physician: Elida SOURCE Source: Chart review, Patient HISTORY OF PRESENT ILLNESS HISTORY OF PRESENT ILLNESS This is a 78 yo male admitted for complains 3rd toe pain on his left foot. It has been noted with gangrene including his 4th to hence this was eventually amputated during his stay. He also has DM. Overnight he has been noted with NSVT. This occurred after surgery and did not received his toprol. Prior to admission no cardiac symptoms and his inpt arrhythmia was asymptomatic. 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 arteries, PCI/PAIGE to RCA, left 2nd toe amputation FAMILY HISTORY Family History: Coronary Artery Disease SOCIAL HISTORY Smoke: Quit ALCOHOL: none Drugs: None Lives: with Family CURRENT MEDICATIONS CURRENT MEDICATIONS Current Medications Medications (Trade) Dose Ordered Sig/Klarissa Route PRN Reason Start Time Stop Time Status Last Admin Dose Admin Cefazolin Sodium 1 gm/Sodium Chloride 500 ml @ 500 mls/hr 1X ONCE IRR 01/30/19 13:00 01/30/19 14:01 DC 01/30/19 13:30 Lidocaine HCl 20 ml STK-MED ONCE .ROUTE 01/30/19 12:52 01/30/19 12:52 DC 01/30/19 13:30 Acetaminophen/ Hydrocodone Bitart (Lortab 5/325) 1 tab PRN Q4HRS PRN PO MODERATE PAIN 01/30/19 14:00 01/31/19 06:17 Piperacillin Sod/ Tazobactam Sod 3.375 gm/Sodium Chloride 50 ml @ 100 mls/hr Q6HRS IV 01/30/19 14:00 01/31/19 06:12 Sodium Chloride 1,000 ml @ 75 mls/hr [id number] IV 01/30/19 21:00 01/30/19 20:30 Fentanyl Citrate (Fentanyl 2ml Vial) 50 mcg PRN Q3HRS PRN IVP PAIN 01/30/19 20:15 01/31/19 07:13 ALLERGIES ALLERGIES: Coded Allergies: No Known Drug Allergies (Unverified , 02/22/18) ROS Review of System 14 point ROS evaluated with pertinent positives noted per HPI PHYSICAL EXAM General: Alert, Oriented X3, Cooperative, No acute distress HEENT: Atraumatic, Mucous membr. moist/pink Lungs: Clear to auscultation, Normal air movement Heart: Regular rate (SR), Normal S1, Normal S2, Other (2/6 systolic murmur to LLS border) Abdomen: Soft, No tenderness Extremities: No cyanosis, No edema Skin: No breakdown, No significant lesion Neuro: Normal speech, Sensation intact Psych/Mental Status: Mental status NL, Mood NL MUSCULOSKELETAL: Osteoarthritic changes both hands VITALS/I&O VITALS/I&O: Vital Signs Date Time Temp Pulse Resp B/P (MAP) Pulse Ox O2 Delivery O2 Flow Rate FiO2 01/31/19 09:02 81 113/64 01/31/19 07:43 17 Room Air 01/31/19 07:00 98.4 92 98.4 01/30/19 13:50 10 I & O 01/30/19 01/30/19 01/31/19 15:00 23:00 07:00 Intake Total 700 ml 1400 ml 350 ml Output Total 3 ml 500 ml 1675 ml Balance 697 ml 900 ml -1325 ml LABS Lab: Laboratory Tests Test 01/30/19 11:47 01/30/19 13:57 01/30/19 16:46 01/30/19 20:50 Glucose (Fingerstick) 135 mg/dL (70-99) H 115 mg/dL (70-99) H 234 mg/dL (70-99) H Magnesium Level 2.2 mg/dL (1.8-2.4) Test 01/30/19 20:59 01/30/19 21:42 01/31/19 03:35 01/31/19 07:19 Glucose (Fingerstick) 66 mg/dL (70-99) L 96 mg/dL (70-99) 132 mg/dL (70-99) H Sodium Level 139 mmol/L (136-145) Potassium Level 4.6 mmol/L (3.5-5.1) Chloride Level 104 mmol/L (98-107) Carbon Dioxide Level 28 mmol/L (21-32) Anion Gap 7 (6-14) Blood Urea Nitrogen 20 mg/dL (8-26) Creatinine 1.4 mg/dL (0.7-1.3) H Estimated GFR (Cockcroft-Gault) 49.1 Glucose Level 104 mg/dL (70-99) H Calcium Level 8.8 mg/dL (8.5-10.1) Laboratory Tests 01/31/19 03:35 ECHOCARDIOGRAM ECHOCARDIOGRAM <Conclusion> The Left Ventricle is mildly dilated. The systolic function is mildly impaired. The Ejection Fraction is 40-45%. There is mild global hypokinesis of the left ventricle. There is borderline to mild concentric left ventricular hypertrophy. The aortic valve is calcified. There is mild valvular aortic stenosis. Doppler and Color Flow revealed trace aortic regurgitation. Doppler and Color-flow revealed mild to moderate mitral regurgitation. Doppler and Color Flow revealed trace tricuspid valve regurgitation. DATE: 01/11/18 1152 HEART CATH HEART CATH Conclusion 1. 80% stenosis involving the proximal segment of right coronary artery. 50% stenosis involving midsegment of the left anterior descending artery, physiologically insignificant based on FFR measurement. 2. Successful PCI/drug eluting stent placement to the right coronary artery. 3. Moderate left ventricle systolic dysfunction with ejection fraction estimated at 30%. Recommendations 1. Aspirin 325 mg daily 2. Plavix 75 mg daily for preferably one year 3. Cardiovascular risk factor modification DATE: 05/26/17 0948 ASSESSMENT/PLAN ASSESSMENT/PLAN 1. Gangrenous left 3rd/4th toe: S/P amputation per vascular 2. Arrhythmia: PSVT, NSVT asymptomatic otherwise SR. Suspect due to missed BB with SNS stimulation with pain and surgery. 3. Chronic systolic CHF; compensated 4. ICM: last EF 40-45% 5. CAD s/p PCI/PAIGE to RCA. Clinically stable 6. HTN: controlled 7. HLP 8. PAD past percutaneous and surgical intervention. S/p left toe amputation. 9. Diabetes, II 10. CKD3: Cr stable Recommendations 1. Continue secondary prevention measures. lasix therapy. DAPT 2. TTE today. Mg and K are nml. Continue BB 3. Resume home antiHTN therapy 4. Await TTE for further recommendation. Supportive care. If no recent MCOT then will consider. 5. IV fluide WARNER MAHARAJ MD 01/31/19 1756: CARDIAC CONSULT ASSESSMENT/PLAN ASSESSMENT/PLAN Patient seen and examined. Agree with SHAKE TABLE OPERATOR's assessment and plan. Few brief episodes of nonsustained ventricular tachycardia on telemetry noted. Potassium and magnesium levels within normal limits. CAD status clinically stable. Agree with checking 2-D echocardiogram. Continue beta blockers. We'll consider outpatient event monitor. Thank you for your consultation. PATRICIA RESTREPO APRN Jan 31, 2019 10:37 WARNER MAHARAJ MD Jan 31, 2019 17:56
[2019-01-31 10:56] VITALS: BP 106/49
--- NOTE | 2019-01-31 14:14 | PDOC ---
PROGRESS NOTES Subjective Subjective "My foot feels a lot better today. Thank you." Objective Objective Vascular Surgery - POD#1 Amputation of left 3rd and 4th toes, closed. General: patient is seen at bedside. He just returned from having a TTE done. Eating lunch hungrily. Vital Signs: Stable and afebrile. CV: had NSVT on telemetry last p.m. Patient denies symptoms. LLE: Foot dressing is dry and intact. Faint hue of dime-sized bloody drainage noted to dressing. Otherwise, clean and dry. Assessment/Plan: 1. Left third and fourth toe gangrene. POD#1 amputation of toes 3/4 left foot. - Will plan to remove post op dressing tomorrow and inspect incision. - reminded patient of need to wear protective post op shoe with mobilization on left foot. 2. Left lower extremity peripheral arterial disease with a chronically occluded bypass. - monitor amputation site for healing. Inspect tomorrow before discharge. - follow up has been scheduled for Dr. Bryson in 4 weeks or earlier if incision declines. Vital Signs Date Time Temp Pulse Resp B/P (MAP) Pulse Ox O2 Delivery O2 Flow Rate FiO2 01/31/19 10:56 98.3 84 20 106/49 (68) 94 Room Air 98.3 01/30/19 13:50 10 Intake and Output 01/31/19 07:00 Intake Total 2450 ml Output Total 2178 ml Balance 272 ml Intake Oral 1350 ml IV Total 1100 ml Output Urine Total 2175 ml Estimated Blood Loss 3 ml # Voids 2 Assessment Assessment Problems Medical Problems: (1) PAYTON (acute kidney injury) Status: Acute (2) Diabetic foot infection Status: Acute Comment Review of Relevant I have reviewed the following items ye (where applicable) has been applied. Labs Laboratory Tests Test 01/29/19 18:15 01/29/19 23:25 01/30/19 02:55 01/30/19 08:49 White Blood Count 9.6 x10^3/uL (4.0-11.0) Red Blood Count 4.30 x10^6/uL (4.30-5.70) Hemoglobin 12.7 g/dL (13.0-17.5) Hematocrit 37.5 % (39.0-53.0) Mean Corpuscular Volume 87 fL (79-100) Mean Corpuscular Hemoglobin 30 pg (25-35) Mean Corpuscular Hemoglobin Concent 34 g/dL (31-37) Red Cell Distribution Width 13.5 % (11.5-14.5) Platelet Count 259 x10^3/uL (140-400) Neutrophils (%) (Auto) 73 % (31-73) Lymphocytes (%) (Auto) 11 % (24-48) Monocytes (%) (Auto) 12 % (0-9) Eosinophils (%) (Auto) 4 % (0-3) Basophils (%) (Auto) 1 % (0-3) Neutrophils # (Auto) 7.0 x10^3/uL (1.8-7.7) Lymphocytes # (Auto) 1.1 x10^3/uL (1.0-4.8) Monocytes # (Auto) 1.1 x10^3/uL (0.0-1.1) Eosinophils # (Auto) 0.3 x10^3/uL (0.0-0.7) Basophils # (Auto) 0.0 x10^3/uL (0.0-0.2) Sodium Level 140 mmol/L (136-145) 139 mmol/L (136-145) Potassium Level 4.8 mmol/L (3.5-5.1) 4.4 mmol/L (3.5-5.1) Chloride Level 104 mmol/L (98-107) 105 mmol/L (98-107) Carbon Dioxide Level 26 mmol/L (21-32) 25 mmol/L (21-32) Anion Gap 10 (6-14) 9 (6-14) Blood Urea Nitrogen 42 mg/dL (8-26) 36 mg/dL (8-26) Creatinine 1.8 mg/dL (0.7-1.3) 1.7 mg/dL (0.7-1.3) Estimated GFR (Cockcroft-Gault) 36.8 39.3 BUN/Creatinine Ratio 23 (6-20) Glucose Level 71 mg/dL (70-99) 152 mg/dL (70-99) Lactic Acid Level 1.1 mmol/L (0.4-2.0) Calcium Level 8.8 mg/dL (8.5-10.1) 8.4 mg/dL (8.5-10.1) Total Bilirubin 0.3 mg/dL (0.2-1.0) Aspartate Amino Transf (AST/SGOT) 15 U/L (15-37) Alanine Aminotransferase (ALT/SGPT) 16 U/L (16-63) Alkaline Phosphatase 57 U/L (46-116) Total Protein 7.7 g/dL (6.4-8.2) Albumin 3.3 g/dL (3.4-5.0) Albumin/Globulin Ratio 0.8 (1.0-1.7) Glucose (Fingerstick) 128 mg/dL (70-99) 114 mg/dL (70-99) Prothrombin Time 14.6 SEC (11.7-14.0) Prothromb Time International Ratio 1.2 (0.8-1.1) Test 01/30/19 11:47 01/30/19 13:57 01/30/19 16:46 01/30/19 20:50 Glucose (Fingerstick) 135 mg/dL (70-99) 115 mg/dL (70-99) 234 mg/dL (70-99) Magnesium Level 2.2 mg/dL (1.8-2.4) Test 01/30/19 20:59 01/30/19 21:42 01/31/19 03:35 01/31/19 07:19 Glucose (Fingerstick) 66 mg/dL (70-99) 96 mg/dL (70-99) 132 mg/dL (70-99) Sodium Level 139 mmol/L (136-145) Potassium Level 4.6 mmol/L (3.5-5.1) Chloride Level 104 mmol/L (98-107) Carbon Dioxide Level 28 mmol/L (21-32) Anion Gap 7 (6-14) Blood Urea Nitrogen 20 mg/dL (8-26) Creatinine 1.4 mg/dL (0.7-1.3) Estimated GFR (Cockcroft-Gault) 49.1 Glucose Level 104 mg/dL (70-99) Calcium Level 8.8 mg/dL (8.5-10.1) Test 01/31/19 12:21 Glucose (Fingerstick) 198 mg/dL (70-99) Laboratory Tests Test 01/30/19 16:46 01/30/19 20:50 01/30/19 20:59 01/30/19 21:42 Glucose (Fingerstick) 234 mg/dL (70-99) 66 mg/dL (70-99) 96 mg/dL (70-99) Magnesium Level 2.2 mg/dL (1.8-2.4) Test 01/31/19 03:35 01/31/19 07:19 01/31/19 12:21 Sodium Level 139 mmol/L (136-145) Potassium Level 4.6 mmol/L (3.5-5.1) Chloride Level 104 mmol/L (98-107) Carbon Dioxide Level 28 mmol/L (21-32) Anion Gap 7 (6-14) Blood Urea Nitrogen 20 mg/dL (8-26) Creatinine 1.4 mg/dL (0.7-1.3) Estimated GFR (Cockcroft-Gault) 49.1 Glucose Level 104 mg/dL (70-99) Calcium Level 8.8 mg/dL (8.5-10.1) Glucose (Fingerstick) 132 mg/dL (70-99) 198 mg/dL (70-99) Microbiology 01/29/19 Blood Culture - Preliminary, Resulted NO GROWTH AFTER 1 DAY Medications Current Medications Fentanyl Citrate (Fentanyl 2ml Vial) 50 mcg PRN Q1HR PRN IV PAIN Last administered on 01/30/19 09:10; Start 01/29/19 at 18:45; Stop 01/30/19 at 09:16; Status DC Piperacillin Sod/ Tazobactam Sod 3.375 gm/Sodium Chloride 50 ml @ 100 mls/hr 1X ONCE IV Last administered on 01/29/19at 19:02; Start 01/29/19 at 18:45; Stop 1 at 19:14; Status DC Sodium Chloride 1,000 ml @ 1,000 mls/hr 1X ONCE IV Last administered on 01/29/19at 19:35; Start 01/29/19 at 19:15; Stop 01/29/19 at 20:14; Status DC Sodium Chloride 1,000 ml @ 100 mls/hr 1X ONCE IV Last administered on 01/29/19at 22:18; Start 01/29/19 at 19:15; Stop 01/30/19 at 05:14; Status DC Aspirin (Children'S Aspirin) 81 mg DAILYWBKFT PO Last administered on 01/31/19 09:02; Start 01/30/19 at 08:00 Clopidogrel Bisulfate (Plavix) 75 mg DAILY PO Last administered on 01/31/19 09:01; Start 01/30/19 at 09:00 Furosemide (Lasix) 20 mg DAILY PO Last administered on 01/31/19 09:01; Start 01/30/19 at 09:00 Lisinopril (Prinivil) 40 mg DAILY PO Last administered on 01/31/19 09:01; Start 01/30/19 at 09:00 Metoprolol Succinate (Toprol Xl) 25 mg DAILY PO Last administered on 01/31/19 09:02; Start 01/30/19 at 09:00 Simvastatin (Zocor) 20 mg QHS PO Last administered on 01/30/19 20:31; Start 01/29/19 at 22:30 Insulin Human Lispro (HumaLOG) 30 units TIDAC SQ Last administered on 01/30/19 17:39; Start 01/30/19 at 07:30 Non-Formulary Medication (Insulin Detemir (Levemir)) 50 unit HS SQ ; Start 01/30 at 21:00; Status UNV Metformin HCl (Glucophage) 1,000 mg BIDWMEALS PO Last administered on 01/31/19 09:01; Start 01/30/19 at 08:00 Dextrose (Dextrose 50%-Water Syringe) 12.5 gm PRN Q15MIN PRN IV SEE COMMENTS; Start 01/29/19 at 22:15 Insulin Glargine (Lantus Syringe) 50 unit QHS SQ Last administered on 01/29/19at 23:52; Start 01/29/19 at 22:30 Ondansetron HCl (Zofran) 4 mg PRN Q6HRS PRN IV NAUSEA/VOMITING; Start 01/30/19 at 08:30; Stop 01/31/19 at 08:29; Status DC Fentanyl Citrate (Fentanyl 2ml Vial) 25 mcg PRN Q5MIN PRN IV MILD PAIN 1-3; Start 01/30/19 at 08:30; Stop 01/31/19 at 08:29; Status DC Fentanyl Citrate (Fentanyl 2ml Vial) 50 mcg PRN Q5MIN PRN IV MODERATE TO SEVERE PAIN; Start 01/30/19 at 08:30; Stop 01/31/19 at 08:29; Status DC Morphine Sulfate (Morphine Sulfate) 1 mg PRN Q10MIN PRN IV SEVERE PAIN 7-10; Start 01/30/19 at 08:30; Stop 01/31/19 at 08:29; Status DC Ringer's Solution 1,000 ml @ 30 mls/hr Q24H IV Last administered on 01/30/19at 12:51; Start 01/30/19 at 08:20; Stop 01/30/19 at 20:19; Status DC Hydromorphone HCl (Dilaudid) 0.5 mg PRN Q10MIN PRN IV SEV PAIN, Second choice; Start 01/30/19 at 08:30; Stop 01/31/19 at 08:29; Status DC Prochlorperazine Edisylate (Compazine) 5 mg PACU PRN PRN IV NAUSEA, MRX1; Start 01/30/19 at 08:30; Stop 01/31/19 at 08:29; Status DC Dextrose/Sodium Chloride 1,000 ml @ 100 mls/hr Q10H IV Last administered on at 09:30; Start 01/30/19 at 09:30; Stop 01/30/19 at 17:14; Status DC Insulin Human Lispro (HumaLOG) 0-5 UNITS TIDWMEALS SQ ; Start 01/30/19 at 12:00; Stop 01/30/19 at 17:12; Status DC Propofol 0 ml @ As Directed STK-MED ONCE IV ; Start 01/30/19 at 11:44; Stop 01/30/19 at 11:44; Status DC Lidocaine HCl (Lidocaine Pf 2% Vial) 5 ml STK-MED ONCE .ROUTE ; Start 01/30/19 at 11:44; Stop 01/30/19 at 11:44; Status DC Ondansetron HCl (Zofran) 4 mg STK-MED ONCE .ROUTE ; Start 01/30/19 at 11:44; Stop 01/30/19 at 11:44; Status DC Dexamethasone Sodium Phosphate (Decadron) 4 mg STK-MED ONCE .ROUTE ; Start 01/30/19 at 11:44; Stop 01/30/19 at 11:44; Status DC Cefazolin Sodium 1 gm/Sodium Chloride 500 ml @ 500 mls/hr 1X ONCE IRR Last administered on 01/30/19at 13:30; Start 01/30/19 at 13:00; Stop 01/30/19 at 14:01; Status DC Lidocaine HCl 20 ml STK-MED ONCE .ROUTE Last administered on 01/30/19at 13:30; Start 01/30/19 at 12:52; Stop 01/30/19 at 12:52; Status DC Cellulose (Surgicel Fibrillar 1x2) 1 each STK-MED ONCE .ROUTE ; Start 01/30/19 at 12:52; Stop 01/30/19 at 12:52; Status DC Cefazolin Sodium 100 ml @ As Directed STK-MED ONCE IV ; Start 01/30/19 at 13:08; Stop 01/30/19 at 13:08; Status DC Piperacillin Sod/ Tazobactam Sod (Zosyn Per Pharmacy) 1 each PRN DAILY PRN MC SEE COMMENTS; Start 01/30/19 at 14:00 Acetaminophen/ Hydrocodone Bitart (Lortab 5/325) 1 tab PRN Q4HRS PRN PO MODE RATE PAIN Last administered on 01/31/19at 06:17; Start 01/30/19 at 14:00 Piperacillin Sod/ Tazobactam Sod 3.375 gm/Sodium Chloride 50 ml @ 100 mls/hr Q6HRS IV Last administered on 01/31/19at 06:12; Start 01/30/19 at 14:00 Sodium Chloride 1,000 ml @ 75 mls/hr [id number] IV Last administered on 01/30/19at 20:30; Start 01/30/19 at 21:00; Stop 01/31/19 at 10:21; Status DC Fentanyl Citrate (Fentanyl 2ml Vial) 50 mcg PRN Q3HRS PRN IVP PAIN Last administered on 01/31/19at 10:22; Start 01/30/19 at 20:15 Multivitamins/ Minerals (I-Viri) 1 tab DAILY PO ; Start 02/01/19 at 09:00 Lactobacillus Rhamnosus (Culturelle) 1 cap BID PO ; Start 01/31/19 at 21:00 Active Scripts Active Augmentin 875-125 Tablet (Amoxicillin/Potassium Clav) 1 Each Tablet 1 Tab PO BIDAFTMEAL 5 Days Reported Metformin Hcl 1,000 Mg Tablet 1,000 Mg PO BIDWMEALS Aspirin 81 Mg Tab.chew 81 Mg PO DAILY Metoprolol Succinate ( Xl ) (Metoprolol Succinate) 25 Mg Tab.er.24h 1 Tab PO DAILY Lasix (Furosemide) 20 Mg Tablet 1 Tab PO DAILY Levemir (Insulin Detemir) 100 Unit/1 Ml Vial 50 Unit SQ HS Plavix (Clopidogrel Bisulfate) 75 Mg Tablet 1 Tab PO DAILY Lisinopril 40 Mg Tablet 1 Tab PO DAILY Simvastatin 20 Mg Tablet 1 Tab PO QHS Novolog (Insulin Aspart) 100 Unit/1 Ml Cartridge 30 Unit SQ TIDAC Vitals/I & O Vital Sign - Last 24 Hours 01/30/19 01/30/19 01/30/19 01/30/19 14:08 14:30 14:45 15:00 Temp 97.5 97.5 97.7 97.5 97.5 97.7 Pulse 78 84 88 97 Resp 16 17 17 B/P (MAP) 137/66 143/74 (97) 150/78 (102) 141/72 (95) Pulse Ox 95 96 96 90 O2 Delivery Room Air Room Air Room Air Room Air 01/30/19 01/30/19 01/30/19 01/30/19 15:15 15:30 16:30 17:00 Pulse 89 85 85 80 B/P (MAP) 142/65 (90) 132/65 (87) 118/63 (81) 123/63 (83) Pulse Ox 96 94 94 95 O2 Delivery Room Air Room Air Room Air Room Air 01/30/19 01/30/19 01/30/19 01/30/19 17:30 18:00 18:30 19:37 Temp 98.6 98.6 Pulse 69 81 91 83 Resp 20 B/P (MAP) 126/67 (86) 126/63 (84) 136/64 (88) 129/62 (84) Pulse Ox 93 95 95 96 O2 Delivery Room Air Room Air Room Air Room Air 01/30/19 01/30/19 01/31/19 01/31/19 20:05 23:10 03:40 07:00 Temp 98.1 98.3 98.4 98.1 98.3 98.4 Pulse 78 72 81 Resp 20 20 20 B/P (MAP) 134/51 (78) 136/62 (86) 113/64 (80) Pulse Ox 92 96 92 O2 Delivery Room Air Room Air Room Air Room Air 01/31/19 01/31/19 01/31/19 01/31/19 07:17 07:43 09:01 09:02 Pulse 81 81 Resp 17 17 B/P (MAP) 113/64 113/64 O2 Delivery Room Air Room Air 01/31/19 01/31/19 01/31/19 10:22 10:52 10:56 Temp 98.3 98.3 Pulse 84 Resp 18 18 20 B/P (MAP) 106/49 (68) Pulse Ox 94 O2 Delivery Room Air Room Air Room Air Intake and Output0 01/30/19 01/30/19 01/31/19 15:00 23:00 07:00 Intake Total 700 ml 1400 ml 350 ml Output Total 3 ml 500 ml 1675 ml Balance 697 ml 900 ml -1325 ml KAITLYN ALMEIDA APRN Jan 31, 2019 14:14
[2019-01-31 15:00] VITALS: BP 124/66
[2019-01-31 19:43] VITALS: BP 147/60
[2019-01-31] MEDS: LACTOBACILLUS RHAMNOSUS GG 1 CAPSULE. PO SCH (20:56)
[2019-01-31] MEDS: SIMVASTATIN 20 MG TABLET PO SCH (20:56)
[2019-01-31] MEDS: INSULIN GLARGINE SYRINGE. SQ SCH (21:00)
[2019-01-31] MEDS ORDERED: HYDR-2761 PO (22:10)
[2019-01-31 23:00] VITALS: BP 109/55
[2019-02-01] MEDS: PIPERACILLIN/TAZOBACTAM 3.375 GM in IV NORMAL SALINE 50ML 50 ML IV SCH ×3 (00:07→12:25)
[2019-02-01 03:00] VITALS: BP 93/61
[2019-02-01 07:26] VITALS: BP 122/64
[2019-02-01] MEDS: fentaNYL PF VIAL 100 MCG/2 ML VIAL IVP PRN ×2 (07:26→12:26)
[2019-02-01] MEDS: INSULIN LISPRO 300 UNITS/3 ML VIAL. SQ SCH ×2 (07:30→12:34)
--- NOTE | 2019-02-01 07:43 | PDOC ---
Infectious Disease Note Subjective Subjective Feels well. Pain min. No F/C/S/N/V/D/SOA/rash + BM ROS ROS o/w neg Vital Sign Vital Signs Vital Signs Date Time Temp Pulse Resp B/P (MAP) Pulse Ox O2 Delivery O2 Flow Rate FiO2 02/01/19 07:26 99.7 76 20 122/64 (83) 94 Room Air 99.7 01/31/19 08:00 10.0 Physical Exam PHYSICAL EXAM CONSTITUTIONAL: He is a pleasant gentleman. He is cooperative, in no acute distress. Sitting on side of bed and eating HEENT: His pupils are status post cataract. He has normal conjunctivae. Oral cavity, pharynx is clear. NECK: Supple. LUNGS: Clear to auscultation. HEART: S1, S2. ABDOMEN: Obese, soft, nontender, nondistended with positive bowel sounds. EXTREMITIES: Without clubbing, cyanosis. foot dressed with clean dressing SKIN: Otherwise, warm to touch without signs of rash. NEUROLOGIC: He is nonfocal. PSYCHIATRIC: Affect is appropriate. Labs Lab Laboratory Tests Test 01/31/19 12:21 01/31/19 17:04 01/31/19 20:36 02/01/19 06:58 Glucose (Fingerstick) 198 mg/dL (70-99) 171 mg/dL (70-99) 108 mg/dL (70-99) 127 mg/dL (70-99) Micro Microbiology 01/29/19 Blood Culture - Preliminary, Resulted NO GROWTH AFTER 1 DAY Objective Assessment Fever times one has resolved and clinically he is looking well - eating and has no complaints. Room is a little warm and may have been under blankets Necrotic 3 rd and 4 th toes L foot S/p Left third/fourth toe amputations at the bases with closed incisions. CKD - better V-tach DM s/p Dexamethasone 01/30 Plan Plan of Care Agree with Christy for now - d/w [facility] this am and they only just received the cults and not even a gram stain has been performed Await Vascular f/u and if wound is clean could de-escalate to Augmentin but will need to f/u next week in primary/Vascular or ID office for cult f/u Elevation Await further Cardiology eval D/w nursing FANG HERRERA MD Feb 01, 2019 07:43
[2019-02-01] MEDS: ASPIRIN CHEWABLE 81 MG TABLET. PO SCH (08:00)
[2019-02-01] MEDS: HYDROcodone/APAP 5/325MG 1 TAB TABLET PO PRN ×2 (08:24→12:35)
[2019-02-01] MEDS: metFORMIN 500 MG TABLET PO SCH (08:24)
[2019-02-01] MEDS: FUROSEMIDE 20 MG TABLET PO SCH (08:25)
[2019-02-01] MEDS: METOPROLOL SUCC 24HR ER 25 MG TAB.ER.24H. PO SCH (08:25)
[2019-02-01] MEDS: CLOPIDOGREL BISULFATE 75 MG TABLET PO SCH (08:25)
[2019-02-01] MEDS: LACTOBACILLUS RHAMNOSUS GG 1 CAPSULE. PO SCH (08:25)
[2019-02-01] MEDS: LISINOPRIL 20 MG TABLET PO SCH (08:26)
[2019-02-01] MEDS ORDERED: MULTIVITAMIN I-VITE TABLET. PO SCH (09:00)
--- NOTE | 2019-02-01 10:16 | PDOC ---
PROGRESS NOTES Subjective Subjective feels ok Objective Objective Vital Signs Date Time Temp Pulse Resp B/P (MAP) Pulse Ox O2 Delivery O2 Flow Rate FiO2 02/01/19 09:24 18 Room Air 02/01/19 08:26 76 122/64 02/01/19 08:00 10.0 02/01/19 07:26 99.7 94 99.7 Intake and Output 02/01/19 06:59 Intake Total 870 ml Output Total 1102 ml Balance -232 ml Intake Oral 870 ml Output Urine Total 1102 ml Physical Exam Abdomen: Soft, No tenderness Heart: Regular rate, Normal S1, Normal S2, Other Extremities: No cyanosis, No edema General: Alert, Oriented X3, Cooperative, No acute distress HEENT: Atraumatic, Mucous membr. moist/pink Lungs: Clear to auscultation, Normal air movement MUSCULOSKELETAL: Osteoarthritic changes both hands Neck: No JVD Neuro: Normal speech, Sensation intact Psych/Mental Status: Mental status NL, Mood NL Skin: No breakdown, No significant lesion Diagnosis Problem List Problems Medical Problems: (1) PAYTON (acute kidney injury) Status: Acute (2) Diabetic foot infection Status: Acute Assessment Assessment Problems Medical Problems: (1) PAYTON (acute kidney injury) Status: Acute (2) Diabetic foot infection Status: Acute FINAL IMPRESSION:non sustained asymptomatic V Tachycardia less than 30 beat 1. Severe peripheral vascular disease. 2. Left toe gangrene.3,4 th toes 3. Insulin-dependent diabetes. 4. Hypertension. 5. Hyperlipidemia. 6. History of bypass to both lower extremities. 7. Ex-smoker. 8. Ac on CRF stage 3. 9.CAD.stable PLAN:POD #2, toe amputations lt foot. d/c home today with augmentin. f/u office in 1 week. monitor showed non sustained asymptomatic V Tachycardia less than 30 beat,last night. cardiology consult cr 1.4 improved d/c iv fluids. At this time, admit to hospital, vascular consult, probably may go for toe amputations. Continue IV fluids hydration and IV antibiotics.Monitor kidney function. Plan Plan of Care Problems Medical Problems: (1) PAYTON (acute kidney injury) Status: Acute (2) Diabetic foot infection Status: Acute Comment Review of Relevant I have reviewed the following items ye (where applicable) has been applied. Labs Laboratory Tests Test 01/31/19 12:21 01/31/19 17:04 01/31/19 20:36 02/01/19 06:58 Glucose (Fingerstick) 198 mg/dL (70-99) 171 mg/dL (70-99) 108 mg/dL (70-99) 127 mg/dL (70-99) Microbiology 01/29/19 Blood Culture - Preliminary, Resulted NO GROWTH AFTER 2 DAYS Medications Current Medications Lactobacillus Rhamnosus (Culturelle) 1 cap BID PO Last administered on 02/01/19at 08:25; Start 01/31/19 at 21:00 Multivitamins/ Minerals (I-Viri) 1 tab DAILY PO Last administered on 02/01/19at 08:24; Start 02/01/19 at 09:00 Vitals/I & O Vital Sign - Last 24 Hours 01/31/19 01/31/19 01/31/19 01/31/19 10:22 10:52 10:56 15:00 Temp 98.3 98.1 98.3 98.1 Pulse 84 89 Resp 18 18 20 20 B/P (MAP) 106/49 (68) 124/66 (85) Pulse Ox 94 96 O2 Delivery Room Air Room Air Room Air Room Air 01/31/19 01/31/19 01/31/19 01/31/19 15:43 16:43 19:43 21:00 Temp 99.0 99.0 Pulse 84 Resp 18 17 18 14 B/P (MAP) 147/60 (89) Pulse Ox 96 96 O2 Delivery Room Air Room Air Room Air Room Air 01/31/19 01/31/19 02/01/19 02/01/19 22:00 23:00 03:00 07:26 Temp 100.3 99.4 100.3 99.4 Pulse 80 75 Resp 15 18 18 17 B/P (MAP) 109/55 (73) 93/61 (72) Pulse Ox 96 94 92 O2 Delivery Room Air Room Air Room Air Room Air 02/01/19 02/01/19 02/01/19 02/01/19 07:26 07:56 08:00 08:24 Temp 99.7 99.7 Pulse 76 Resp 20 18 18 B/P (MAP) 122/64 (83) Pulse Ox 94 O2 Delivery Room Air Room Air Room Air Room Air O2 Flow Rate 10.0 02/01/19 02/01/1919 08:25 08:26 09:24 Pulse 76 76 Resp 18 B/P (MAP) 122/64 122/64 O2 Delivery Room Air Intake and Output 01/31/19 01/31/19 02/01/19 14:59 22:59 06:59 Intake Total 570 ml 200 ml 100 ml Output Total 1 ml 1 ml 1100 ml Balance 569 ml 199 ml -1000 ml MOSHE SMITH MD Feb 01, 2019 10:16
[2019-02-01 11:14] VITALS: BP 122/64
--- NOTE | 2019-02-01 12:42 | PDOC ---
Provider Note Provider Note Vascular Surgery - POD#2 Amputation of left 3rd and 4th toes, closed. Pt seen and examined in room without complaints. Denies pain "my toes just let me know they aren't there" General: patient is seen at bedside. Vital Signs: Stable and afebrile. Respirations nonlabored LLE: Foot dressing removed. Incisions with old dried blood, incisions are intact, wound edges align nicely. Minimal erythema extending to mid foot. This is somewhat dependent rubor and improves with leg elevation. Assessment/Plan: 1. Left third and fourth toe gangrene. POD#1 amputation of toes 3/4 left foot. - Incisions clean, intact. Basic incision care, discussed with RN. - Ok for discharge. He will follow up with us in 4 weeks. - cont abx upon discharge - reminded patient of need to wear protective post op shoe with mobilization on left foot. 2. Left lower extremity peripheral arterial disease with a chronically occluded bypass. - monitor amputation site for healing. - follow up has been scheduled for Dr. Bryson in 4 weeks or earlier if incision declines. - cont asa and plavix Ok for discharge from vasc surg standpoint. NALINI DRUMMOND Feb 01, 2019 12:42
--- NOTE | 2019-02-01 14:20 | NUR ---
Pt discharged to home with with . Discharge teaching completed regarding dressing changes and follow up appointments. Verbalized understanding.
--- NOTE | 2019-02-01 14:56 | NUR ---
SW following pt. Pt is a transfer from ICU and discussed with ICU SS. PT/OT recommends home independent. ID following. No needs at this time. Will continue to evaluate.
--- NOTE | 2019-02-01 18:01 | PDOC ---
PROGRESS NOTES Subjective Subjective Denied any chest pain or palpitations Objective Objective Vital Signs Date Time Temp Pulse Resp B/P (MAP) Pulse Ox O2 Delivery O2 Flow Rate FiO2 02/01/19 12:35 18 Room Air 02/01/19 11:14 98.2 58 122/64 (83) 96 98.2 02/01/19 08:00 10.0 Intake and Output 02/01/19 07:00 Intake Total 870 ml Output Total 1102 ml Balance -232 ml Intake Oral 870 ml Output Urine Total 1102 ml Physical Exam Abdomen: Soft, No tenderness Heart: Regular rate, Normal S1, Normal S2, Other Extremities: No cyanosis, No edema General: Alert, Oriented X3, No acute distress HEENT: Atraumatic, Mucous membr. moist/pink Lungs: Clear to auscultation, Normal air movement Neck: No JVD Neuro: Normal speech Psych/Mental Status: Mental status NL, Mood NL Skin: No significant lesion Assessment Assessment 1. Gangrenous left 3rd/4th toe: S/P amputation per vascular surgery team 2. Arrhythmia: PSVT, NSVT. No further episodes of NSVT noted. He did have few brief episodes of atrial flutter. Plan for outpatient event monitor to assess arrhythmia burden. 3. Chronic systolic CHF; compensated. Continue current medical regimen. 4. ICM: last EF 40-45% 5. CAD s/p PCI/PAIGE to RCA. Clinically stable. Continue current secondary prevention measures. 6. HTN: controlled 7. HLP 8. PAD past percutaneous and surgical intervention. S/p left toe amputation. 9. Diabetes, II 10. CKD3: Cr stable Plan Plan of Care Problems Medical Problems: (1) PAYTON (acute kidney injury) Status: Acute (2) Diabetic foot infection Status: Acute Comment Review of Relevant I have reviewed the following items ye (where applicable) has been applied. Labs Laboratory Tests Test 01/31/19 20:36 02/01/19 06:58 02/01/19 11:06 Glucose (Fingerstick) 108 mg/dL (70-99) 127 mg/dL (70-99) 178 mg/dL (70-99) Microbiology 01/29/19 Blood Culture - Preliminary, Resulted NO GROWTH AFTER 2 DAYS Medications Current Medications Lactobacillus Rhamnosus (Culturelle) 1 cap BID PO Last administered on 02/01/19at 08:25; Start 01/31/19 at 21:00; Stop 02/01/19 at 15:40; Status DC Multivitamins/ Minerals (I-Viri) 1 tab DAILY PO Last administered on 02/01/19at 08:24; Start 02/01/19 at 09:00; Stop 02/01/19 at 15:40; Status DC Vitals/I & O Vital Sign - Last 24 Hours 01/31/19 01/31/19 01/31/19 01/31/19 19:43 21:00 22:00 23:00 Temp 99.0 100.3 99.0 100.3 Pulse 84 80 Resp 18 14 15 18 B/P (MAP) 147/60 (89) 109/55 (73) Pulse Ox 96 96 96 94 O2 Delivery Room Air Room Air Room Air Room Air 02/01/19 02/01/19 02/01/19 02/01/19 03:00 07:26 07:26 07:56 Temp 99.4 99.7 99.4 99.7 Pulse 75 76 Resp 18 17 20 18 B/P (MAP) 93/61 (72) 122/64 (83) Pulse Ox 92 94 O2 Delivery Room Air Room Air Room Air Room Air 02/01/19 02/01/19 02/01/19 02/01/19 08:00 08:24 08:25 08:26 Pulse 76 76 Resp 18 B/P (MAP) 122/64 122/64 O2 Delivery Room Air Room Air O2 Flow Rate 10.0 02/01/19 02/01/19 02/01/19 02/01/19 09:24 11:14 12:26 12:35 Temp 98.2 98.2 Pulse 58 Resp 18 20 17 18 B/P (MAP) 122/64 (83) Pulse Ox 96 O2 Delivery Room Air Room Air Room Air Room Air Intake and Output 01/31/19 01/31/19 02/01/19 15:00 23:00 07:00 Intake Total 570 ml 200 ml 100 ml Output Total 1 ml 1 ml 1100 ml Balance 569 ml 199 ml -1000 ml WARNER MAHARAJ MD Feb 01, 2019 18:01
--- NOTE | 2019-02-04 09:56 | PDOC ---
Provider Note Provider Note Discharge summary dictated.#[id number]. MOSHE SMITH MD Feb 04, 2019 09:56
--- NOTE | 2019-02-04 11:24 | CARD ---
MR#: [id number] Date of Study: 01/31/2019 Ordering Physician: PATRICIA RESTREPO, Referring Physician: PATRICIA RESTREPO, Tech: Aleida Alvarez APPROVED REPORT EXAM: Two-dimensional and M-mode echocardiogram with Doppler and color Doppler. Other Information Quality : AverageHR: 84bpm INDICATION Arrhythmia Cardiac Disease: CAD Congestive Heart Failure RISK FACTORS Hypertension Hyperlipidemia Diabetes 2D DIMENSIONS RVDd2.9 (2.9-3.5cm)Left Atrium(2D)4.9 (1.6-4.0cm) IVSd1.1 (0.7-1.1cm)Aortic Root(2D)3.2 (2.0-3.7cm) LVDd6.2 (3.9-5.9cm)LVOT Diameter2.2 (1.8-2.4cm) PWd1.2 (0.7-1.1cm)LVDs5.1 (2.5-4.0cm) FS (%) 16.8 %SV66.5 ml LVEF(%)34.5 (>50%) Aortic Valve AoV Peak Jamal.199.5cm/sAoV VTI38.8cm AO Peak GR.15.9mmHgLVOT Peak Jamal.79.4cm/s LVOT VTI 16.17cmAO Mean GR.9mmHg PRABHAKAR (VMAX)1.46rh6KML (VTI)1.52cm2 Mitral Valve MV E Sdezbrco75.6cm/sMV E Peak Gr.108mmHg MV DECEL XWBS969cqSY A Mfahfehe94.9cm/s MV YDP77pcQ/A Ratio0.9 MVA (PHT)4.04cm2 TDI E/Lateral E'8.2E/Medial E'12.4 Pulmonary Valve PV Peak Ryisjccl627.9cm/sPV Peak Grad.5mmHg Tricuspid Valve TR P. Zcwfydya608yo/sRAP DXLZCGBZ0zuMk TR Peak Gr.55skQcUXBS80aiAg Pulmonary Vein S1 Keqznncw08.3cm/sD2 Ahlmrlar62.4cm/s PVa yvwbzkkh961sexe LEFT VENTRICLE The Left Ventricle is mildly dilated. There is mild to moderate concentric left ventricular hypertrop hy. The systolic function is mildly impaired. The Ejection Fraction is 40-45%. There is global hypoki nesis of the left ventricle. Transmitral Doppler flow pattern is Grade I-abnormal relaxation pattern. RIGHT VENTRICLE The right ventricle is normal size. There is normal right ventricular wall thickness. The right ventr icular systolic function is normal. ATRIA The left atrium is mildly The right atrium size is normal. The interatrial septum is intact with no e vidence for an atrial septal defect or patent foramen ovale as noted on 2-D or Doppler imaging. AORTIC VALVE The aortic valve is heavily calcified. Doppler and Color Flow revealed trace aortic regurgitation. Th ere is no significant aortic valvular stenosis. MITRAL VALVE The mitral valve is normal in structure and function. There is no evidence of mitral valve prolapse. There is no mitral valve stenosis. Doppler and Color-flow revealed mild mitral regurgitation. TRICUSPID VALVE The tricuspid valve is normal in structure and function. Doppler and Color Flow revealed trace tricus pid regurgitation with an estimated PAP of 41 mmHg. There is no tricuspid valve stenosis. PULMONIC VALVE The pulmonic valve is not well visualized. Doppler and Color Flow revealed no pulmonic valvular regur gitation. There is no pulmonic valvular stenosis. GREAT VESSELS The aortic root is normal in size. The IVC is dilated and collapses >50% with inspiration. PERICARDIAL EFFUSION There is no evidence of significant pericardial effusion. Critical Notification Critical Value: No <Conclusion> The systolic function is mildly impaired. The Ejection Fraction is 40-45%. There is global hypokinesis of the left ventricle. Doppler and Color Flow revealed trace tricuspid regurgitation with an estimated PAP of 41 mmHg. Signed by : Farzad Horan, Electronically Approved : 01/31/2019 14:02:12
--- NOTE | 2019-02-04 13:27 | DS ---
DATE OF DISCHARGE: 02/01/2019 REASON FOR ADMISSION TO THE HOSPITAL: Diabetic foot ulcer with osteo may be early gangrene. CONSULTATION: 1. Vascular. 2. Cardiology. PROCEDURES DONE: 1. Left third and fourth toe amputation. 2. Arterial Doppler. 3. Echocardiogram. HOSPITAL COURSE: The patient is a 78-year-old male with history of coronary artery disease, diabetes, peripheral vascular disease, had a bilateral bypass to both lower extremities, had a previous amputation of the left foot second and fifth toe. The patient had infection, toe ulceration, third and fourth toes, was admitted to the hospital, seen by Vascular. Arterial Doppler, which shows occlusion of the [place] arteries with some flow distally and it was felt that the patient has enough blood flow. The patient was taken to surgery, had a left third and fourth toe amputation with primary closure. The patient received IV antibiotics and Zosyn, changed to oral antibiotics. Cultures show Acinetobacter sensitive to Augmentin. FINAL DIAGNOSES: 1. 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 The patient underwent amputation of the left third and fourth toes with primary closure. 2. Peripheral vascular disease, has adequate blood flow, had a previous bypass surgeries. 3. Coronary artery disease, history of stents, stable. 4. The patient had mild nonsustained ventricular tachycardia between 20-30 beats, was seen by Cardiology and the patient was asymptomatic. The patient had magnesium, potassium, calcium checked. Recommend outpatient followup with Cardiology. The patient was discharged on Augmentin for 7 days. MOSHE SMITH MD DR: KERVIN/catalina JOB#: [id number] / [id number]
--- NOTE | 2019-02-04 14:08 | PATHOLOGY ---
[facility] Accession Number: [id number] . 01 Material submitted: . PART A: toe - LEFT THIRD TOE. Modifiers: left, third PART B: toe - LEFT FOURTH TOE. Modifiers: left, fourth . 01 Clinical history: . Gangrene . 02 Diagnosis: A. Left third toe amputation: - Focal gangrenous necrosis and ulceration of distal tip of toe with acute cellulitis and acute osteomyelitis of distal phalangeal bone. . B. Left fourth toe amputation: - Pseudoepitheliomatous hyperplasia and chronic inflammation of skin with overlying marked hyperkeratosis and parakeratosis of distal tip of toe. - No evidence of acute osteomyelitis identified. (JPM:bere; 02/04/2019) S 02/04/2019 0945 Local . 02 Electronically signed: . Sadiq Bermudez MD, Pathologist NPI- [id number] . 01 Gross description: . A. The specimen is received in formalin, labeled "Juan Pierce, left third toe". Received is an amputated digit measuring 3.0 x 2.1 x 1.9 cm in greatest dimensions. The bone margin is smooth and concave in appearance, consistent with disarticulation. The bone and soft tissue margins are inked black. The nail is absent. At the distal aspect of the specimen, there is a poorly circumscribed, irregular in contour and allan-jensen to light jensen lesion measuring 2.8 x 2.0 cm, which is 1.1 cm from the closest skin margin. A full-thickness longitudinal cross-section is submitted in cassette A1, following decalcification. . B. The specimen is received in formalin, labeled "Juan Pierce, left fourth toe". Received is an amputated digit measuring 2.7 x 2.2 x 2.1 cm in greatest dimensions. The bone margin is jagged in appearance. The bone and soft tissue margins are inked black. The nail is not grossly distinct. The epidermal surface displays a poorly circumscribed, irregular in contour and light jensen to allan-jensen lesion measuring 2.8 x 1.5 cm, which is 0.3 cm from the closest skin margin. A full-thickness longitudinal cross-section is submitted in cassette B1, following decalcification. (CAA; 02/01/2019) QAC/QAC 02/01/2019 0822 Local . 02 Pathologist provided ICD-10: M86.172, L03.032, L97.519, I96 . 02 CPT . 701083, 557715, 805496, 504438 Specimen Comment: A courtesy copy of this report has been sent to Specimen Comment: [phone], . Specimen Comment: Report sent to / DR SMITH Performed at: [address] [facility] [address], [place], [place] [id number] MD Alex Veliz MD Phone: [phone] Performed at: 02 [facility] [address] [place], [place] [id number] MD Sadiq Bermudez MD Phone: [phone]
== END 2019-02-01 14:20 | disposition home or self-care (01) | DRG 617 ==
LOC: ER 17:19 → 6 SOUTH 18:31
PROVIDERS: ADMIT Internal Medicine; ATTEND Internal Medicine
PROC: 0Y6W0Z0 Detachment at Left 4th Toe, Complete, Open Approach (ICD-10-PCS; 2019-01-30)
PROC: 0Y6U0Z0 Detachment at Left 3rd Toe, Complete, Open Approach (ICD-10-PCS; principal; 2019-01-30 13:00)
DX: E11.69 Type 2 diabetes mellitus with other specified complication (principal); E11.52 Type 2 diabetes mellitus with diabetic peripheral angiopathy with gangrene; I13.0 Hypertensive heart and chronic kidney disease with heart failure and stage 1 through stage 4 chronic kidney disease, or unspecified chronic kidney disease; I47.2 Ventricular tachycardia; I48.92 Unspecified atrial flutter; I50.22 Chronic systolic (congestive) heart failure; M86.8X8 Other osteomyelitis, other site; N17.9 Acute kidney failure, unspecified; E11.621 Type 2 diabetes mellitus with foot ulcer; I73.9 Peripheral vascular disease, unspecified; E11.22 Type 2 diabetes mellitus with diabetic chronic kidney disease; E11.628 Type 2 diabetes mellitus with other skin complications; E78.00 Pure hypercholesterolemia, unspecified; E78.5 Hyperlipidemia, unspecified; M19.90 Unspecified osteoarthritis, unspecified site; I25.10 Atherosclerotic heart disease of native coronary artery without angina pectoris; J44.9 Chronic obstructive pulmonary disease, unspecified; L97.509 Non-pressure chronic ulcer of other part of unspecified foot with unspecified severity; N18.3 Chronic kidney disease, stage 3 (moderate); Z79.4 Long term (current) use of insulin; Z82.49 Family history of ischemic heart disease and other diseases of the circulatory system; Z87.891 Personal history of nicotine dependence; Z89.432 Acquired absence of left foot; Z98.61 Coronary angioplasty status; Z83.3 Family history of diabetes mellitus
CPT/HCPCS: 36415; 73630; 80048; 80053; 82962; 83605; 83735; 85025; 85610; 87040; 87071; 87075; 93005; 93306; 93925; 96365; 96375; A7015; J0690; J1100; J1815; J2001; J2405; J2543; J2704; J3010; J7030; J7042; J7120; 97535; 99285-25; A4461; G0378

== ENCOUNTER 2019-03-04 06:50 | Day surgery (SDC) | payer OTHER ==
[~2019-03-04] VITALS: Ht 175.3 cm; Wt 99.8 kg
[~2019-03-04 06:50] MED LIST changes: +HYDR-2761 PO; +SIMV20TA18 PO; -SIMV20TA3 PO
[2019-03-04] MEDS ORDERED: ONDANSETRON PF 4 MG/2 ML VIAL. IV PRN ×2 (07:00)
[2019-03-04] MEDS ORDERED: PROCHLORPERAZINE 10 MG/2 ML VIAL. IV PRN ×2 (07:00)
[2019-03-04] MEDS ORDERED: LIDOCAINE 1% PF 2 ML VIAL. ID PRN ×2 (07:00)
[2019-03-04] MEDS ORDERED: MORPHINE SULFATE 2 MG/ML VIAL. IV PRN ×2 (07:00)
[2019-03-04] MEDS ORDERED: fentaNYL PF VIAL 100 MCG/2 ML VIAL IV PRN ×4 (07:00)
[2019-03-04] MEDS ORDERED: HYDROmorphone 2 MG/ML VIAL IV PRN ×2 (07:00)
[2019-03-04] MEDS ORDERED: IV RINGERS,LACTATED 1000ML 1,000 ML IV SCH ×2 (07:00)
[2019-03-04] MEDS: INSULIN LISPRO 100 UNIT/ML 3ML VIAL for OP,RR ONLY. SQ PRN ×2 (08:00→10:20)
[2019-03-04] MEDS ORDERED: BUPIVACAINE MPF 0.25% 30 ML VIAL. ONE (08:54)
[2019-03-04] MEDS ORDERED: silver sulfADIAZINE 1% CREAM 25GM TUBE. TP ONE (08:54)
[2019-03-04] MEDS ORDERED: fentaNYL PF VIAL 100 MCG/2 ML VIAL ONE (09:06)
[2019-03-04] MEDS ORDERED: SEVOFLURANE 31 TO 60 MINUTES. IH ONE (09:28)
[2019-03-04] MEDS ORDERED: DEXAMETHASONE SOD PHOS 4 MG/ML VIAL ONE (09:28)
[2019-03-04] MEDS ORDERED: ONDANSETRON PF 4 MG/2 ML VIAL. ONE (09:28)
[2019-03-04] MEDS ORDERED: LIDOCAINE 2% PF 5 ML VIAL. ONE (09:28)
[2019-03-04] MEDS ORDERED: PROPOFOL 20 ML IV ONE (09:28)
[2019-03-04] MEDS ORDERED: PHENYLEPHRINE in 0.9% NACL PF 1 MG/10 ML SYRINGE. IV ONE (09:28)
--- NOTE | 2019-03-04 09:56 | DISCH ---
DISCHARGE INSTRUCTIONS Condition on Discharge Condition on Discharge: Stable Activity After Discharge Activity Instructions for Disc: Activity as tolerated Other activity instructions: post op shoe left foot Bathing Instructions: Shower-keep dressing dry Exercise Instruction after Dis: Progress as tolerated Driving Instructions after Dis: Other, see below Weight Bearing Status after Di: Full weight bearing Sexual Activity Restrictions: with post op shoe Diet after Discharge Diet after Discharge: Diabetic No Calorie Level Diet Texture: Regular Wound Incision Care Wound/Incision Care: Change dressing, Reinforce dressing PRN Wound Care Equipment: Dressings (daily dry gauze dressing) Checks after Discharge Checks after discharge: Check blood press - daily, Check blood sugar, ac/hs Contacting the DRRicky after DC Call your doctor for: If your condition worsens Follow-Up Follow up with: Dr. Larios 3:10 Treatment/Equipment after DC Adaptive Equipment Issued: LIVE Mccarthy APRN Mar 04, 2019 09:56
--- NOTE | 2019-03-04 10:01 | PDOC ---
BRIEF OPERATIVE NOTE Date: Mar 04, 2019 Pre-Op Diagnosis PVD with left third toe amputation site dehiscence Post-Op Diagnosis same Procedure Performed Left third toe amputation with revision Surgeon Dr. Larios Multimedia Services Coordinator Live Davis NP Anesthesia Type: General Blood Loss minimal Specimens Obtained Left third toe Findings minimal bleeding, no purulent drainage Complications none Operative Note see dictated note LIVE DAVIS APPLICATION PROCESSOR Mar 04, 2019 10:01
--- NOTE | 2019-03-04 10:07 | OP ---
DATE OF SURGERY: 03/04/2019 PREOPERATIVE DIAGNOSIS: Nonhealing left third toe amputation site. POSTOPERATIVE DIAGNOSES: Nonhealing left third toe amputation site, moderate arterial insufficiency of the left lower extremity. OPERATION PERFORMED: Amputation revision of the left third toe requiring removal of the proximal phalanx down to the metatarsal, primary closure. SURGEON: Lyndsey Martinez M.D. CRUSHER MACHINE OPERATOR: Lucretia Kline APRN who was required for assistance with exposure and wound closure. ANESTHESIA: General. INDICATIONS: This is a 78-year-old gentleman who has had amputations of the left second and fifth toes. He had an amputation of the left third toe, not too long ago, which failed to heal. He has protruding phalanx and was brought to the operating room for revision of this. DESCRIPTION OF PROCEDURE: The left foot was prepped and draped circumferentially with Betadine soap and Betadine paint. A timeout was called and the correct patient, the correct operative site and correct operation were verified. A fishmouth incision was then made in a transverse orientation and the phalanx was resected down to the metatarsal head. The metatarsal head was rongeured. This bone was very healthy appearing and crunchy. There was less than optimal bleeding from the skin edges. There was no evidence of gross purulence. The wound was then irrigated copiously and closed with interrupted 3-0 nylon. Arterial Doppler assessment was done and he has monophasic flow over the dorsal pedal and posterior tibial arteries. He may require revascularization depending on the adequacy of wound healing, which will be evaluated in 2 weeks. All sponge and needle counts were reported as correct. ESTIMATED BLOOD LOSS: Minimal. DRAINS: None. SPECIMENS: Left proximal third phalanx. LYNDSEY MARTINEZ MD DR: CEM/catalina JOB#: [id number] / [id number]
[2019-03-04] MEDS ORDERED: CEPH-264 PO (10:27)
[2019-03-04] MEDS ORDERED: TRAM50TA PO (10:28)
[2019-03-04] MEDS ORDERED: traMADol 50 MG TABLET PO ONE (10:30)
[2019-03-04 10:45] VITALS: BP 107/52
== END 2019-03-04 11:20 | disposition home or self-care (01) ==
LOC: SURG 06:50
PROVIDERS: ATTEND Surgery
DX: T87.89 Other complications of amputation stump (principal); E78.00 Pure hypercholesterolemia, unspecified; E11.40 Type 2 diabetes mellitus with diabetic neuropathy, unspecified; I11.0 Hypertensive heart disease with heart failure; I50.9 Heart failure, unspecified; I25.2 Old myocardial infarction; I48.91 Unspecified atrial fibrillation; J43.9 Emphysema, unspecified; E66.9 Obesity, unspecified; Z68.32 Body mass index [BMI] 32.0-32.9, adult; Z87.891 Personal history of nicotine dependence; Z95.1 Presence of aortocoronary bypass graft; Z95.5 Presence of coronary angioplasty implant and graft; Z72.89 Other problems related to lifestyle; Z98.42 Cataract extraction status, left eye; Z98.41 Cataract extraction status, right eye; Z96.1 Presence of intraocular lens; Z79.84 Long term (current) use of oral hypoglycemic drugs; Z79.899 Other long term (current) drug therapy; Z86.73 Personal history of transient ischemic attack (TIA), and cerebral infarction without residual deficits; Z90.49 Acquired absence of other specified parts of digestive tract; Y83.8 Other surgical procedures as the cause of abnormal reaction of the patient, or of later complication, without mention of misadventure at the time of the procedure
CPT/HCPCS: 28810; 82962; A7015; J0696; J1100; J2001; J2370; J2405; J2704; J3010; J3490; A4461

== ENCOUNTER → 2019-05-29 | Outpatient (CLI) | payer MEDICARE ==
[~2019-05-29] MED LIST changes: +CEPH-264 PO; +TRAM50TA PO
--- NOTE | 2019-05-29 09:37 | CARD ---
MR#: [id number] Date of Study: 05/29/2019 Ordering Physician: WARNER LARA, Referring Physician: WARNER LARA, Tech: Jaylan Dela Cruz RDCS APPROVED REPORT EXAM: Two-dimensional and M-mode echocardiogram with Doppler and color Doppler. Other Information Quality : AverageHR: 88bpm INDICATION CAD RISK FACTORS Hypertension Hyperlipidemia Diabetes 2D DIMENSIONS RVDd3.5 (2.9-3.5cm)IVSd1.1 (0.7-1.1cm) Aortic Root(2D)3.4 (2.0-3.7cm)LVDd5.1 (3.9-5.9cm) LVOT Diameter2.2 (1.8-2.4cm)PWd1.1 (0.7-1.1cm) LVDs4.7 (2.5-4.0cm)FS (%) 7.8 % SV21.2 mlLVEF(%)17.3 (>50%) Aortic Valve AoV Peak Jamal.210.3cm/sAoV VTI38.7cm AO Peak GR.17.7mmHgLVOT Peak Jamal.99.8cm/s AO Mean GR.9mmHgAVA (VMAX)1.75cm2 Mitral Valve MV E Gcypjolc794.1cm/sMV DECEL TGGU909ks MV A Hnzbairz91.3cm/sE/A Ratio2.5 MV A Xqslvdmq91mx Pulmonary Valve PV Peak Dpamysfm81.7cm/s Tricuspid Valve RAP DCZURKBX5wlWq Pulmonary Vein S1 Albxvure23.0cm/sD2 Odnxgasa22.4cm/s PVa kgxlqthk34ujfy LEFT VENTRICLE The left ventricle is normal size. There is normal left ventricular wall thickness. The left ventricu lar systolic function is mild to moderately impaired. The Ejection Fraction is 40%. There is global h ypokinesis of the left ventricle. Transmitral Doppler flow pattern suggests grade IV-fixed restrictiv e diastolic dysfunction. There is no ventricular septal defect visualized. RIGHT VENTRICLE The right ventricle is normal size. There is normal right ventricular wall thickness. The right ventr icular systolic function is normal. ATRIA The left atrium is moderately dilated. The right atrium is mildly dilated. The interatrial septum is intact with no evidence for an atrial septal defect or patent foramen ovale as noted on 2-D or Dopple r imaging. AORTIC VALVE The aortic valve is moderately calcified. Doppler and Color Flow revealed no significant aortic regur gitation. There is no significant aortic valvular stenosis. MITRAL VALVE The mitral valve is normal in structure and function. There is no evidence of mitral valve prolapse. There is no mitral valve stenosis. Doppler and Color-flow revealed mild mitral regurgitation. TRICUSPID VALVE The tricuspid valve is normal in structure and function. Doppler and Color Flow revealed trace tricus pid regurgitation. Unable to assess PA pressure. There is no tricuspid valve stenosis. PULMONIC VALVE The pulmonary valve is normal in structure and function. Doppler and Color Flow revealed no pulmonic valvular regurgitation. There is no pulmonic valvular stenosis. GREAT VESSELS The aortic root is normal in size. The ascending aorta is normal in size. The pulmonary artery is not well visualized. The IVC is normal in size and collapses >50% with inspiration. PERICARDIAL EFFUSION There is no pleural effusion. There is no evidence of significant pericardial effusion. Critical Notification Critical Value: No <Conclusion> The left ventricular systolic function is mild to moderately impaired. The Ejection Fraction is 40%. Mild mitral regurgitation. Trace tricuspid regurgitation. There is no evidence of significant pericardial effusion. Signed by : Warner Lara, Electronically Approved : 05/29/2019 09:37:27
== END | disposition home or self-care (01) ==
LOC: ECHO 08:27
PROVIDERS: ATTEND Internal Medicine Cardiovascular Disease
DX: I08.0 Rheumatic disorders of both mitral and aortic valves (principal); I25.10 Atherosclerotic heart disease of native coronary artery without angina pectoris
CPT/HCPCS: 93306

== ENCOUNTER → 2019-12-05 | Outpatient (CLI) | payer MEDICARE ==
[~2019-12-05] MED LIST changes: +REGADENOSON 0.4 MG/5 ML DISP.SYRIN. IV ONE
--- NOTE | 2019-12-06 06:55 | RAD ---
MR#: [id number] Date of Study: 12/05/2019 Ordering Physician: WARNER MAHARAJ, Referring Physician: KISHA THOMAS Tech: LINDA Canada, ARRT (R) (N) APPROVED REPORT Test Type: Pharmacological Stress Nurse/Tech: Sharda Hawkins RN Test Indications: CAD Cardiac History: Hypertension, 1 stent,COPD,Diabetes Medications: See Electronic Medical Record Medical History: See Electronic Medical Record Resting ECG: SR with PVCs Resting Heart Rate: 78 bpm Resting Blood Pressure: 109/64mmHg Pretest Chest Pain: No chest pain Nurse/Tech Notes S1,S2 and lungs diminished throughout. Patient stated he uses an inhaler from time to time. Consent: The procedure was explained to the patient in lay terms. Informed consent was witnessed. Elmer eout was entered into [employer]. History and Stress Test performed by RT Kash ThaoR) (N) Pharm. Details Pharmacologic stress testing was performed using 0.4mg per 5ml of regadenoson given intravenously ove r 7-10 seconds. Stress Symptoms No chest pain or symptoms. POST EXERCISE Reason for Termination: Infusion complete Target HR: No 91% of Maximum Predicted HR: 120 bpm Max Blood Pressure: 115/69mmHg Blood Pressure response to exercise: Normal blood pressure response during stress. Heart Rate response to exercise: WNL Chest Pain: No. Arrhythmia: Yes. PVCs ST Change: No. INTERPRETATION Stress EKG Conclusion: No evidence of stress induced EKG changes. Imaging Protocol IMAGE PROTOCOL: Rest Tc-99m/stress Tc-99m 1 day Rest: Stress: Viability: Radiopharm.Tc99m PvmloixokWh60t Sestamibi Isaa20tId 33mCi Img Date 12/05/2019 12/05/2019 Inj-Img Bxqy48bgi. 60min. Rest Admin Site:IV - Left AntecubitalAdministrator:RT Nichelle Juan)(N) Stress Admin Site: IV - Left AntecubitalAdministrator: RT Nichelle Thao)(N) STRESS DATA End Diast. Vol.221.0mlAv. Heart Rate86.0bpm End Syst. Vol.148.0mlCO Index BSA6.3L/min Myocardial Rtqh949.0gEject. Ncrxotni24.0% Stress Rates Pk. Fill Rate2.56EDV/secLVtime Pk. Fill 188.37msec Pk. Empty Rate2.00ESV/secLVtime Pk. Eject73.80msec 1/3 Pk. Fill0.53EDV/sec Stress Scores Regional WT2.00Summed WT29.00 Regional WM2.00Summed WM19.00 LV Perfusion There is a large sized basal to distal inferior FIXED defect suggestive of prior infarct without isch emia. Wall Motion Moderate global hypokinesis. EF 35% LV Perf. Quant 17 Seg. SSS9.00 17 Seg. SRS6.00 17 Seg. SDS4.00 Stress Defect Extent (% LAD)3.80Rest Defect Extent (% LAD)0.00Rev. Defect Extent (% LAD)3.80 Stress Defect Extent (% LCX) 22.50Rest Defect Extent (% LCX)13.80Rev. Defect Extent (% LCX)22.50 Stress Defect Extent (% RCA)28.90Rest Defect Extent (% RCA)27.80Rev. Defect Extent (% RCA)15.60 Stress Defect Extent (% REFUGIO)17.80Rest Defect Extent (% REFUGIO)8.90Rev. Defect Extent (% REFUGIO)15.20 Other Information Quality:Fair Risk Assessment: Moderate-High Risk Conclusion 1. No evidence of stress induced EKG changes. 2. Large FIXED inferior wall defect. 3. Moderate LV dysfunction. EF 35%. Motion artifact noted. 4. Moderate to high risk for future CV events. Signed by : Farzad Horan, Electronically Approved : 12/06/2019 06:55:04
== END | disposition home or self-care (01) ==
LOC: NM 07:41
PROVIDERS: ATTEND Internal Medicine Cardiovascular Disease
DX: I25.10 Atherosclerotic heart disease of native coronary artery without angina pectoris (principal); I10 Essential (primary) hypertension; J44.9 Chronic obstructive pulmonary disease, unspecified; E11.9 Type 2 diabetes mellitus without complications
CPT/HCPCS: 78452; 93017; A9500; J2785

== ENCOUNTER → 2020-01-09 | Outpatient (CLI) | payer MEDICARE ==
[~2020-01-09] MED LIST changes: -REGADENOSON 0.4 MG/5 ML DISP.SYRIN. IV ONE; +RIVA10TA PO
== END | disposition home or self-care (01) ==
LOC: LAB 11:58
PROVIDERS: ATTEND Internal Medicine Cardiovascular Disease
DX: Z01.812 Encounter for preprocedural laboratory examination (principal); I48.0 Paroxysmal atrial fibrillation; Z20.828 Contact with and (suspected) exposure to other viral communicable diseases
CPT/HCPCS: U0003-CS

== ENCOUNTER 2020-01-13 08:53 | Observation (INO) | payer MEDICARE ==
[~2020-01-13] VITALS: Ht 175.3 cm; Wt 102.1 kg
[~2020-01-13 08:53] MED LIST changes: +BACITRACIN 50,000 UNIT in IV NORMAL SALINE 250ML 250 ML IRR ONE; +HYDROmorphone 2 MG/ML VIAL IV PRN; +IV RINGERS,LACTATED 1000ML 1,000 ML IV SCH; +LIDOCAINE 1% PF 2 ML VIAL. ID PRN; +MORPHINE SULFATE 2 MG/ML VIAL. IV PRN; +ONDANSETRON PF 4 MG/2 ML VIAL. IV PRN; +PROCHLORPERAZINE 10 MG/2 ML VIAL. IV PRN; -RIVA10TA PO; +fentaNYL PF VIAL 100 MCG/2 ML VIAL IV PRN
[2020-01-13] MEDS ORDERED: LIDOCAINE 2%/EPI 1:100,000 20 ML VIAL. ONE (09:19)
[2020-01-13 09:30] VITALS: BP 142/82
[2020-01-13 09:37] LABS: HEMATOCRIT 41.5 % (39.0-53.0); HEMOGLOBIN 13.4 g/dL (13.0-17.5); RED BLOOD COUNT 4.81 x10^6/uL (4.30-5.70); RED CELL DISTRIBUTION WIDTH 16.2 % (11.5-14.5); WHITE BLOOD COUNT 7.8 x10^3/uL (4.0-11.0)
--- NOTE | 2020-01-13 09:44 | EKG ---
[facility] [address] [place] [address] Test Date: 2020-01-13 Test Time: 09:41:57 Pat Name: JIMBO PAZ Department: Room: Gender: M Bill Clerk: ASIF : 1940 Requested By: WARNER MAHARAJ Order Number: [id number] Reading MD: Measurements Intervals [place] Rate: 75 P: 56 FL: 172 QRS: -24 QRSD: 106 T: 100 QT: 416 QTc: 467 Interpretive Statements SINUS RHYTHM LEFTWARD AXIS QRS(T) CONTOUR ABNORMALITY CONSISTENT WITH INFERIOR INFARCT PROBABLY OLD T ABNORMALITY IN ANTEROLATERAL LEADS ABNORMAL ECG RI6.02 Compared to ECG 01/30/2019 21:15:31 Left-axis deviation now present T-wave abnormality now present Intraventricular conduction delay no longer present Myocardial infarct finding still present
[2020-01-13 09:47] LABS: CALCIUM 8.9 mg/dL (8.5-10.1); CREATININE 1.4 mg/dL (0.7-1.3); POTASSIUM 4.4 mmol/L (3.5-5.1)
[2020-01-13 09:56] LABS: PROTHROMBIN TIME PATIENT 14.9 SEC (11.7-14.0)
[2020-01-13] MEDS ORDERED: KETAMINE HCL IN NACL, ISO-OSM 50 MG/5 ML SYRINGE ONE (10:19)
[2020-01-13] MEDS ORDERED: MIDAZOLAM HCL/PF 2 MG/2 ML VIAL. ONE ×2 (10:19)
[2020-01-13] MEDS ORDERED: fentaNYL PF VIAL 250 MCG/5 ML VIAL ONE ×2 (10:19→10:20)
[2020-01-13] MEDS ORDERED: LIDOCAINE 2%/EPI 1:100,000 20 ML VIAL. IJ ONE (11:00)
[2020-01-13] MEDS ORDERED: oxyCODONE/APAP 5/325 1 TAB TABLET PO PRN (12:00)
--- NOTE | 2020-01-13 12:38 | RAD ---
EXAM: PORTABLE CHEST 1V 01/13/2020 11:58 AM CLINICAL INDICATION:Postop defibrillator COMPARISON:Chest radiograph 06/08/2018 TECHNIQUE:AP upright view of the chest FINDINGS:Right chest wall pacemaker/AICD with leads over the right atrial appendage and right ventricular apex is new. Cardiomegaly is redemonstrated. Coarse bilateral interstitial opacities are unchanged. There are small bilateral pleural effusions and left basilar opacities. No pneumothorax. IMPRESSION: 1. New right chest wall pacemaker/AICD without evidence of complication. 2. Cardiomegaly and unchanged interstitial opacities suspicious for mild pulmonary edema. Small bilateral pleural effusions. Electronically signed by: Belinda Pruett MD (01/13/2020 12:35 PM) [id number]
--- NOTE | 2020-01-13 12:39 | CARD ---
MR#: [id number] Date of Study: 01/13/2020 Ordering Physician: WARNER LARA, Referring Physician: WARNER LARA, Tech: APPROVED REPORT EXAM Implantation of Medtronic dual-chamber automated implantable cardioverter defibrillator with defibril lation thresholds measurement at the time of implantation SEDATION ADMINISTERED BY ANESTHESIA TEAM FLUORO TIME: 8.0 MIN DOSE: 70.5 GYCM2 INDICATIONS Primary prevention of sudden cardiac in a patient with ischemic cardiomyopathy, chronic systoli c heart failure with LVEF 35% despite optimal medical therapy. PROCEDURE After explaining the risks, benefits, and alternative options, informed consent was obtained from the patient. The patient was brought to the cardiac catheterization lab and the right chest and shoulder were prep ped and draped in the usual fashion. 30 cc of 2% lidocaine was infiltrated into the skin and subcutaneous tissues for local anesthesia. A n incision was made over the right infraclavicular fossa and using blunt dissection and cautery, a po cket was created. Venous access was obtained in the right subclavian vein and 11 and 7 Serbian sheath s inserted. A Medtronic bipolar active fixation single coil right ventricular lead model [id number], serial number [id number] was advanced under fluoroscopic guidance and the tip was positioned in the right ventricul ar apex. Subsequently, a Medtronic bipolar active fixation right atrial lead model [id number] serial num kandis [id number] was positioned in the right atrial appendage under fluoroscopy guidance. The leads w ere secured into place and were attached to a Medtronic dual-chamber AICD generator model [id number], se rial number [id number]. This was placed in the pocket that was subsequently closed in 3 layers. He mostasis was secured. Ventricular fibrillation was then induced to check defibrillation threshold. Patient successfully co nverted to sinus rhythm with 15 J shock therapy. The right ventricular lead showed a sensing amplitu de of 8.4 mV, impedance of 547 ohms and a threshold of 0.75 V. The right atrial lead showed a sensin g amplitude of 2.1 mV, impedance of 665 ohms and a threshold of 0.75 V. Patient tolerated the proced ure well. There were no immediate complications. CONCLUSION Successful implantation of Medtronic dual-chamber automated implantable cardioverter defibrillator fo r primary prevention of sudden cardiac in a patient with chronic systolic heart failure/ischemi c cardiomyopathy with LVEF 35%. Defibrillation thresholds were measured at the time of implantation. Signed by : Warner Lara, Electronically Approved : 01/13/2020 12:39:11
[2020-01-13 12:50] VITALS: BP 122/73
[2020-01-13] MEDS ORDERED: LIDOCAINE 2% PF 5 ML VIAL. ONE (13:22)
[2020-01-13] MEDS ORDERED: PROPOFOL 10 MG/ML (20ML) VIAL. IV ONE (13:22)
[2020-01-13 15:00] VITALS: BP 122/58
[2020-01-13] MEDS ORDERED: RIVA10TA PO (16:16)
[2020-01-13 19:00] VITALS: BP 136/78
[2020-01-13] MEDS: INSULIN LISPRO 300 UNITS/3 ML VIAL. SQ SCH (19:45)
[2020-01-13] MEDS ORDERED: INSULIN GLARGINE SYRINGE. SQ SCH (21:00)
[2020-01-13 23:24] VITALS: BP 133/74
[2020-01-14 03:26] VITALS: BP 157/80
[2020-01-14 07:00] VITALS: BP 132/78
[2020-01-14] MEDS ORDERED: INSULIN ASPART 30 UNIT SQ SCH (07:30)
[2020-01-14] MEDS: INSULIN LISPRO 300 UNITS/3 ML VIAL. SQ SCH ×2 (08:22→12:15)
--- NOTE | 2020-01-14 08:45 | PDOC ---
Provider Note Date of Service: DATE: 01/14/20 TIME: 08:45 Provider Note PCP f/u ,medical consult done.#[id number]. Justifications for Admission Other Justification MOSHE SMITH MD Jan 14, 2020 08:45
[2020-01-14] MEDS ORDERED: FUROSEMIDE 20 MG TABLET PO SCH (09:00)
[2020-01-14] MEDS ORDERED: CLOPIDOGREL BISULFATE 75 MG TABLET PO SCH (09:00)
[2020-01-14] MEDS ORDERED: LISINOPRIL 20 MG TABLET PO SCH (09:00)
[2020-01-14] MEDS ORDERED: METOPROLOL SUCC 24HR ER 25 MG TAB.ER.24H. PO SCH (09:00)
[2020-01-14] MEDS ORDERED: ASPIRIN CHEWABLE 81 MG TABLET. PO SCH (09:00)
--- NOTE | 2020-01-14 10:12 | RAD ---
Chest radiograph 01/14/2020 11:58 AM INDICATION: Post pacemaker placement COMPARISON: 01/13/2020 TECHNIQUE: Frontal and lateral views of the chest are provided. FINDINGS: The cardiomediastinal silhouette is similar in appearance. Right chest wall cardiac device is identified with leads projecting over the right atrium and right ventricle, similar to the prior examination. No significant pleural effusions or pneumothorax. There is mild pulmonary vascular congestion. IMPRESSION: Right chest wall cardiac device is in similar position. No pneumothorax. There is similar degree of mild pulmonary vascular congestion. Electronically signed by: Raven Encarnacion MD (01/14/2020 10:09 AM) [id number]
[2020-01-14 10:53] VITALS: BP 123/87
--- NOTE | 2020-01-14 11:38 | DISCH ---
DISCHARGE INSTRUCTIONS Condition on Discharge Condition on Discharge: Stable Activity After Discharge Activity Instructions for Disc: Activity as tolerated, Other, see below (do not raise right arm above shoulder height. Wear right arm immobilizer. ) Bathing Instructions: Shower-keep dressing dry Exercise Instruction after Dis: Progress as tolerated Driving Instructions after Dis: Do not drive (until seen in clinic for followup) Weight Bearing Status after Di: Full weight bearing Diet after Discharge Diet after Discharge: Cardiac, Diabetic No Calorie Level Diet Texture: Regular Checks after Discharge Checks after discharge: Check blood sugar, ac/hs Contacting the DR. after DC Call your doctor for: If your condition worsens MARE MEREDITH APRN Jan 14, 2020 11:38
--- NOTE | 2020-01-14 11:39 | PDOC3 ---
Discharge Summary Visit Information Date of Admission: Jan 13, 2020 Date of Discharge: Jan 14, 2020 Admitting Diagnosis Comment: 1. Chronic systolic HF 2. ICM 3. CAD 4. Hypertension 5. Hyperlipemia 6. PAD 7. Diabetes, II 8. CKD Final Diagnosis 1. Chronic systolic HF 2. ICM 3. CAD 4. Hypertension 5. Hyperlipemia 6. PAD 7. Diabetes, II 8. CKD Brief Hospital Course Allergies Allergies Coded Allergies Type Severity Reaction Last Updated Verified No Known Drug Allergies 03/04/19 No Vital Signs Vital Signs Date Time Temp Pulse Resp B/P (MAP) Pulse Ox O2 Delivery O2 Flow Rate FiO2 01/14/20 10:53 97.5 77 18 123/87 (99) 96 Room Air 97.5 01/14/20 08:00 2.0 Lab Results Laboratory Tests Test 01/13/20 09:32 01/13/20 16:24 01/13/20 20:45 01/14/20 07:16 White Blood Count 7.8 x10^3/uL (4.0-11.0) Red Blood Count 4.81 x10^6/uL (4.30-5.70) Hemoglobin 13.4 g/dL (13.0-17.5) Hematocrit 41.5 % (39.0-53.0) Mean Corpuscular Volume 86 fL (79-100) Mean Corpuscular Hemoglobin 28 pg (25-35) Mean Corpuscular Hemoglobin Concent 32 g/dL (31-37) Red Cell Distribution Width 16.2 % (11.5-14.5) Platelet Count 207 x10^3/uL (140-400) Prothrombin Time 14.9 SEC (11.7-14.0) Prothromb Time International Ratio 1.2 (0.8-1.1) Sodium Level 137 mmol/L (136-145) Potassium Level 4.4 mmol/L (3.5-5.1) Chloride Level 103 mmol/L (98-107) Carbon Dioxide Level 25 mmol/L (21-32) Anion Gap 9 (6-14) Blood Urea Nitrogen 20 mg/dL (8-26) Creatinine 1.4 mg/dL (0.7-1.3) Estimated GFR (Cockcroft-Gault) 49.0 Glucose Level 123 mg/dL (70-99) Calcium Level 8.9 mg/dL (8.5-10.1) Glucose (Fingerstick) 261 mg/dL (70-99) 263 mg/dL (70-99) 129 mg/dL (70-99) Test 01/14/20 11:24 Glucose (Fingerstick) 167 mg/dL (70-99) Laboratory Tests Test 01/13/20 16:24 01/13/20 20:45 01/14/20 07:16 01/14/20 11:24 Glucose (Fingerstick) 261 mg/dL (70-99) 263 mg/dL (70-99) 129 mg/dL (70-99) 167 mg/dL (70-99) Brief Hospital Course Mr. Pierce is a 79 old male, with a history of CAD and ischemic cardiomyopathy with LVEF 35% despite optimal medical therapy, who presented for AICD implantation. Patient underwent successful implantation of Medtronic dual- chamber automated implantable cardioverter defibrillator for primary prevention of sudden cardiac . Patient tolerated procedure well and was monitored overnight without complication. Post operative device check with normal function. CXR without pneumothorax. Right device insertion site soft, clean, and dry. No hematoma present. Incision well-approximated. Steri-strips intact. Discharge instructions, post operative care were discussed and patient verbalized an understanding. He will return in 2 weeks as scheduled for wound check with clinic RN. . Patient seen and examined. Agree with MARRIAGE PERFORMER's assessment and plan. s/p AICD implantation for primary prevention of SCD and DFT check CXR without pneumothorax Device check showed normal function OK for DC home and follow up for wound check as scheduled Discharge Information Condition at Discharge: Stable Follow Up: Weeks (2) Disposition/Orders: D/C to Home Scheduled Aspirin (Aspirin) 81 Mg Tab.chew, 81 MG PO DAILY for BLOOD THINNER, (Reported) Entered as Reported by: ANJUM MORAN on 02/21/18 1214 Last Action: Continued on 01/14/20 0844 by MOSHE SMITH Clopidogrel Bisulfate (Plavix) 75 Mg Tablet, 1 TAB PO DAILY, #90 Ref 1 (Reported) Entered as Reported by: MARE MERCADO on 06/25/14 1024 Last Action: Continued on 01/14/20 0844 by MOSHE SMITH Furosemide (Lasix) 20 Mg Tablet, 40 MG PO DAILY for CHF , #90 Ref 1 (Reported) Entered as Reported by: EMMA RIVERA on 05/15/17929 Last Action: Continued on 01/14/20843 by MOSHE SMITH Insulin Aspart (Novolog) 100 Unit/1 Ml Cartridge, 30 UNIT SQ TIDAC, (Reported) Entered as Reported by: PRABHA LOPEZ on 06/24/14840 Last Action: Converted on 01/13/201856 by ENRIQUE MICHAELS Insulin Detemir (Levemir) 100 Unit/1 Ml Vial, 50 UNIT SQ HS, (Reported) Entered as Reported by: LACEY MARTINEZ on 10/29/15 1237 Last Action: Converted on 01/13/201856 by ENRIQUE MICHAELS Lisinopril (Lisinopril) 40 Mg Tablet, 20 MG PO DAILY for HTN, #30 Ref 5 (Reported) Entered as Reported by: PRABHA LOPEZ on 06/24/14840 Last Action: Continued on 01/14/20843 by MOSHE SMITH Metformin Hcl (Metformin Hcl) 1,000 Mg Tablet, 1,000 MG PO BIDWMEALS for DIABETES, (Reported) Entered as Reported by: ANJUM MORAN on 02/21/18 1214 Last Action: Converted on 01/14/20843 by MOSHE SMITH Metoprolol Succinate (Metoprolol Succinate ( Xl )) 25 Mg Tab.er.24h, 1 TAB PO DAILY, #30 Ref 5 (Reported) Entered as Reported by: MELISSA DIEZ on 02/14/18 1640 Last Action: Continued on 01/14/20843 by MOSHE SMITH Rivaroxaban (Xarelto) 10 Mg Tablet, 2.5 MG PO DAILY for stents for 7 Days, #2 Ref 0 (Reported) Entered as Reported by: ENRIQUE MICHAELS on 01/13/201615 Last Action: New Order on 01/13/201615 by ENRIQUE MICHAELS Simvastatin (Simvastatin) 20 Mg Tablet, 1 TAB PO QHS, #30 Ref 5 (Reported) Entered as Reported by: PRABHA LOPEZ on 06/24/14840 Last Action: Continued on 01/14/20843 by MOSHE SMITH Patient Instructions Patient Instructions Must know & what to expect after device implant: 1. Your surgical dressing should be removed prior to discharge from the hospital, but allow the steri- strips to fall off naturally. 2. Activity restrictions: DO NOT raise arm above shoulder level, lift anything heavier than a gallon of milk, and no push or pull motions such as vacuuming/lawn mowing, no swinging motions (golf), etc for 4 weeks. 3. It is OK to use a cell phone or other electronic devices just be sure you d o not store it in a breast pocket on the side where the device was placed. 4. Device will be interrogated prior to your discharge from the hospital and then every 3 months for defibrillators and every 6 months for pacemakers. You may be asked to have your device checked remotely from home as well, but this will depend on your particular physicians preference. 5. You may remove the arm immobilizer the day after device placement. Wear the arm immobilizer/splint at night (during sleep times) for 2 week to prevent unintended arm movement that can cause lead dislodgement. 6. Do not drive for one week as the task of driving may lead to unintended arm motion that may cause lead dislodgement. The seatbelt will also rub against the incision site & cause irritation. 7. It is our recommendation that you utilize Tylenol at home for pain control. You need to call our office if you are having uncontrollable pain at the incision site. 8. Keep your incision clean and dry. It is OK to shower. DO NOT submerge in bath, pool, or hot tub, until cleared by your doctor, as this could lead to increase risk of infection.. It is OK to use regular soap just do not scrub the incision site. Water spray from shower should not directly hit the incision. Be sure to blot dry not rub. 9. Inspect your incision daily. If you notice any increased redness, swelling, or drainage, or if you start running a fever, call the office immediately. The number is [phone]. 10. For women, if you need to protect against irritation from the bra straps, you can place a piece of gauze over the incision site for cushion. Please be sure to tape it loosely to allow air to the site & remove the gauze when you remove the bra. 11. Be sure to carry your device identification information card in your wallet/purse at all times. 12. It is OK to go through security at the airport with your device, but be sure to let the TSA know prior to proceeding as the security settings change depending on varying factors. Please do whatever is requested by security at that time. 13. Some of the newer devices may be MRI compatible but, currently, the use of these devices is not widespread, so you likely will not be able to have an MRI. Please clarify this with your physician. Special instructions for defibrillator patients: If your device recognizes a rhythm that requires treatment with a shock, you will most likely feel the shock. This is usually not a subtle feeling and it is uncomfortable. Please follow these steps if you receive a shock: Call the office if you receive one shock. Go to the emergency room if you receive two consecutive shocks- please have someone drive you & call 911 if nobody is available- DO NOT drive yourself. Call 911 if you receive more than 2 consecutive shocks. If at any time, you feel lightheaded or dizzy/faint, stop what you are doing & lie down immediately. If you are driving, get to the side of the road quickly, turn your car off & call 911 on your cell phone. DO NOT continue to drive as this may cause an accident that seriously injures yourself &/or others. Call the office at [phone] for any questions or concerns. Justicifation of Admission Dx: Justifications for Admission: Justification of Admission Dx: Yes CHF: Cardiac Arrhythmias MARE MEREDITH APRN Jan 14, 2020 11:39 WARNER MAHARAJ MD Jan 14, 2020 18:30
--- NOTE | 2020-01-14 12:50 | NUR ---
SS following up with discharge planning. SS reviewed pt chart and discussed with pt RN. Pt is from home with spouse and is currently on room air. Pt had AICD placed yesterday. Discharge order on the chart for home with self care.
--- NOTE | 2020-01-14 12:57 | NUR ---
Discharge Note: JIMBO PAZ Discharge instructions and discharge home medications reviewed with Patient and a copy given. All questions have been answered and understanding verbalized. The following instructions and handouts were given: AICD Discontinued lines and drains: Peripheral IV intact. Patient discharged to Home or Self Care with Spouse via Wheelchair
[2020-01-14] MEDS ORDERED: metFORMIN 500 MG TABLET PO SCH (17:00)
[2020-01-14] MEDS ORDERED: SIMVASTATIN 20 MG TABLET PO SCH (21:00)
--- NOTE | 2020-01-15 00:29 | CONS ---
DATE OF CONSULTATION: 01/13/2020 REASON FOR ADMISSION TO THE HOSPITAL: Elective admission for placement of defibrillator for congestive heart failure. REASON FOR CONSULTATION: Primary care followup. Medically manage diabetes, hypertension, and heart failure. HISTORY OF PRESENT ILLNESS: The patient is a 79-year-old male patient, well known to me, has a history of congestive heart failure, ejection fraction less than 35%. The patient had seen Cardiology. He also has diabetes, hypertension, CHF, peripheral vascular disease. He was scheduled to have an elective admission for defibrillator placement for congestive heart failure. I am now asked to see for medication management and primary care followup. PAST MEDICAL HISTORY: Has a history of diabetes, hypertension, hyperlipidemia, leg bypass, congestive heart failure, had a cardiac catheterization in the past. PAST SURGICAL HISTORY: As mentioned above, had bilateral leg bypass, had a second and fifth toe removed from the left foot. History of cardiac catheterization and now has a defibrillator. ALLERGIES: No known drug allergies. MEDICATIONS: He is on aspirin 81 mg daily, Plavix 75 mg daily, Lasix 40 mg daily, NovoLog 30 units 3 times daily, insulin Levemir 50 at bedtime, lisinopril 20 mg daily, metformin 1000 mg twice a day, metoprolol XL 25 mg daily, simvastatin 20 mg daily. PERSONAL HISTORY: Ex-smoker, quit long time back. SOCIAL HISTORY: The patient lives with his . REVIEW OF SYMPTOMS: Cardiac-santiago no chest pain, has some shortness of breath on exertion. Rest of the 14-systems was reviewed and negative. PHYSICAL EXAMINATION: GENERAL: The patient is pleasant, not in any distress. VITAL SIGNS: Temperature 98, pulse 80, respirations 20, blood pressure 157/80, 96 on room air. HEENT: Head is atraumatic. Pupils equal. Oral cavity: Dentures. NECK: Supple. Thyroid not enlarged. JVD not elevated. CHEST: Symmetrical. Had a defibrillator placed in right side of the chest. CARDIOVASCULAR: S1, S2. LUNGS: Clear to auscultation. ABDOMEN: Soft, bowel sounds present, no mass palpable. EXTERNAL GENITALIA: No Gordon. RECTAL: Deferred. EXTREMITIES: No calf tenderness, no edema. Pulses dec in legs. NEUROLOGIC: Moving all extremities. No focal deficits noted. LABORATORY DATA: White count 8, hemoglobin 13, platelets 207. INR 1.2. Electrolytes show sodium 137, potassium 4.4, chloride 103, bicarbonate 25, creatinine 1.4, glucose was 260, came down to 167. Chest x-ray shows placement of defibrillator. No complication noted. FINAL IMPRESSION: 1. Elective admission for placement of defibrillator. 2. Congestive heart failure, ejection fraction less than 35%. 3. Peripheral vascular disease. 4. Diabetes. 5. Hypertension. 6. Hyperlipidemia. 7. Reflux disease. PLAN: At this point, the patient was seen, reviewed medications, restarted the medications and hopefully patient could be discharged today. We will follow up patient in the office. Again, thank you Dr. Lara, for allowing me to participate in the care of this patient. MOSHE SMITH MD DR: KERVIN/catalina JOB#: [id number] / [id number] DANUTA
== END 2020-01-14 12:59 | disposition home or self-care (01) ==
LOC: SURG 08:53 → 2 NORTH 09:15
PROVIDERS: ADMIT Internal Medicine Cardiovascular Disease; ATTEND Internal Medicine Cardiovascular Disease
DX: I25.5 Ischemic cardiomyopathy (principal); I13.0 Hypertensive heart and chronic kidney disease with heart failure and stage 1 through stage 4 chronic kidney disease, or unspecified chronic kidney disease; E11.22 Type 2 diabetes mellitus with diabetic chronic kidney disease; E11.51 Type 2 diabetes mellitus with diabetic peripheral angiopathy without gangrene; I50.22 Chronic systolic (congestive) heart failure; N18.9 Chronic kidney disease, unspecified; E78.5 Hyperlipidemia, unspecified; I25.10 Atherosclerotic heart disease of native coronary artery without angina pectoris; Z95.810 Presence of automatic (implantable) cardiac defibrillator
CPT/HCPCS: 33249; 36415; 71045; 71046; 80048; 82962; 85027; 85610; 93005; 93641; 96365; 96366; C1721; C1895; C1898; G0378; G0379; J0690; J1815; J2250; J2704; J3490; J7050; J3010; J7030

== ENCOUNTER → 2020-07-31 | Outpatient (CLI) | payer MEDICARE ==
[2020-06-19 12:41] VITALS: BP 102/64
[~2020-07-31] MED LIST changes: +ALBU2.5V8 IH; +AMLO-186 PO; -AMLO5TAB10 PO; +APIX5TAB PO; -BACITRACIN 50,000 UNIT in IV NORMAL SALINE 250ML 250 ML IRR ONE; -HYDROmorphone 2 MG/ML VIAL IV PRN; -IV RINGERS,LACTATED 1000ML 1,000 ML IV SCH; -LIDOCAINE 1% PF 2 ML VIAL. ID PRN; +LISI-517 PO; -MORPHINE SULFATE 2 MG/ML VIAL. IV PRN; -ONDANSETRON PF 4 MG/2 ML VIAL. IV PRN; -PROCHLORPERAZINE 10 MG/2 ML VIAL. IV PRN; +RIVA10TA PO; -fentaNYL PF VIAL 100 MCG/2 ML VIAL IV PRN
--- NOTE | 2020-08-03 11:14 | RAD ---
EXAM: PET/CT SCAN INDICATION: Lung mass COMPARISON: CT images from PET/CT 11/04/2011. PET/CT SCAN TECHNIQUE: Approximately 60 minutes after the intravenous administration of 15.0millicuri es of F-18 fluorodeoxyglucose (FDG), PET imaging of the body from the base of the skull through the m id thighs was performed. Reconstruction in all 3 planes were performed. The patient's serum glucose l evel at the time of the F-18 FDG administration was 101 mg/dL. A noncontrast CT scan was obtained for attenuation correction and anatomic localization purposes only and is not considered a diagnostic CT scan. PQRS compliance Statement One or more of the following individualized dose reduction techniques were utilized for this study: 1. Automated exposure control 2. Adjustment of the mA and/or kV according to patient size 3. Use of iterative reconstruction technique FINDINGS: Background: Mediastinum SUV max: 2.26 Liver SUV max: 3.14 HEAD AND NECK: No abnormal FDG uptake. CHEST: A new pulmonary nodule in the medial right middle lobe abutting the minor fissure measures 1.8 x 1.4 cm and has mild FDG uptake with SUV max 2.93. Mildly enlarged mediastinal lymph nodes are unch anged in size and have low level FDG uptake. For example, a right paratracheal lymph node measuring 1 .3 cm short axis has SUV max 2.72. A left paraaortic lymph node has SUV max 2.57. An AP lymph node santos s SUV max 2.9 cm. Unable to compare SUV uptake with prior exam. There is FDG uptake in the right chest wall around the pacemaker insertion, likely postinflammatory. Moderate right and small left pleural effusions without increased FDG uptake. Interlobular septal thickening suggests pulmonary edema. There is mild emphysema. Scattered calcified granulomas. Mild cardiomegaly. Coronary calcifications. ABDOMEN AND PELVIS: No abnormal FDG uptake. Mild diffuse FDG uptake in bowel is likely physiologic. N o lymphadenopathy in the abdomen. Moderate ascites. The liver, spleen, pancreas, adrenal glands, kidn eys are normal. Sigmoid diverticulosis. Severe calcified aortoiliac atherosclerosis. 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 New left superficial femoral artery stent. Enlarged lymph nodes in the left groin has no FDG uptake above background. MUSCULOSKELETAL: There is FDG uptake in healing right rib fractures. IMPRESSION: 1. Since PET/CT 2011, there is a new 1.8 cm solid pulmonary nodule in the right middle lobe with mild FDG uptake, SUV max 2.93. Malignancy is possible. Recommend correlation with biopsy. 2. Mildly enlarged mediastinal lymph nodes are unchanged in size from 2012. These have low-level FDG uptake with SUV max 2.5-2.9 but given the stability and size are favored to be infectious/inflammator y. Metastatic disease less likely but not excluded. 3. Small pleural effusions. Mild pulmonary edema. Ascites. 4. Left common femoral artery aneurysm. Electronically signed by: Belinda Pruett MD (08/03/2020 11:12 AM) [id number]
== END ==
LOC: PETSC 11:00
PROVIDERS: ATTEND Internal Medicine Critical Care Medicine
DX: R91.1 Solitary pulmonary nodule (principal)
CPT/HCPCS: 78815; A9552

== ENCOUNTER → 2020-10-09 | Outpatient (CLI) | payer MEDICARE ==
[2020-09-16 19:28] VITALS: BP 91/53
[~2020-10-09] MED LIST changes: +APIX2.5T PO; +INSU100V35 SQ; +IPRA3AMP29 NEB; +LISI20TA18 PO
[2020-10-09 09:46] LABS: BASO # 0.1 x10^3/uL (0.0-0.2); BASO % 1 % (0-3); EOS # 0.1 x10^3/uL (0.0-0.7); EOS % 2 % (0-3); HEMATOCRIT 38.6 % (39.0-53.0); HEMOGLOBIN 12.4 g/dL (13.0-17.5); LYMPH # 0.8 x10^3/uL (1.0-4.8); LYMPH % 13 % (24-48); MEAN CORPUSCULAR HEMOGLOBIN 28 pg (25-35); MEAN CORPUSCULAR HGB CONC 32 g/dL (31-37); MEAN CORPUSCULAR VOLUME 88 fL (79-100); MONO # 0.7 x10^3/uL (0.0-1.1); MONO % 12 % (0-9); NEUT # 4.1 x10^3/uL (1.8-7.7); NEUT % 72 % (31-73); PLATELET COUNT 196 x10^3/uL (140-400); RED CELL DISTRIBUTION WIDTH 18.5 % (11.5-14.5); WHITE BLOOD COUNT 5.7 x10^3/uL (4.0-11.0)
[2020-10-09 09:58] LABS: CALCIUM 8.3 mg/dL (8.5-10.1); CREATININE 1.9 mg/dL (0.7-1.3); GFR 34.5
[2020-10-09 09:59] LABS: POTASSIUM 4.7 mmol/L (3.5-5.1)
[2020-10-09 10:05] LABS: ALBUMIN 2.5 g/dL (3.4-5.0); ALBUMIN/GLOBULIN RATIO 0.5 (1.0-1.7); TOTAL BILIRUBIN 1.4 mg/dL (0.2-1.0); TOTAL PROTEIN 7.4 g/dL (6.4-8.2)
== END ==
LOC: ONCLAB 09:02
PROVIDERS: ATTEND Internal Medicine Hematology & Oncology
DX: C34.2 Malignant neoplasm of middle lobe, bronchus or lung (principal)
CPT/HCPCS: 36415; 80053; 85025